=== PATIENT | female | born 1990 | race Caucasian/White ===

== ENCOUNTER 2020-02-17 14:35 | Outpatient (RCR) | payer BC, SELFPAY ==
[2020-02-10 10:00] VITALS: BP 120/70; PULSE 88
--- NOTE | ~2020-02-17 | US_ITS ---
EXAMINATION: US OB follow up w BPP EXAM DATE: 02/10/2020 09:50 INDICATION: Nonreactive stress test. 3rd trimester. TECHNIQUE: Pelvic obstetrical transabdominal sonogram was performed by a technologist. Biophysical p rofile. There are multiple grayscale and Doppler images available for interpretation. Comparison is m bailey to prior examination from 09/03/2019. FINDINGS: There is a single fetus identified in vertex presentation with a heart rate of 144 beats pe r minute. The placenta is located in the fundal position. There is no sonographic evidence of retrop lacental hemorrhage identified. The amniotic fluid index is 13.7 centimeters, which is normal. BIOMETRIC DATA: Biparietal diameter (BPD): 9.2cm ----------------> 37 weeks 2 days. Head circumference (HC): 34.8 cm ----------------> 40 weeks 2 days. Abdominal circumference (AC): 35.3 cm ----------> 39 weeks 2 days. Femur length (FL): 7.3 cm --------------------------> 37 weeks 1 day. These measurements are concordant. HC/AC ratio is 0.98 (The 5th -- 95th percentile range is 0.88-1.06. Estimated weight is 3558 g +/- 534 g. This is the 85th percentile when the currently reported clinical gestation age 37 weeks 4 days, clinical estimated date of delivery ([facility]) 02/27/2020 is us ed. estimated gestational age based on measurements from this exam is 38 weeks 4 days, with an estimated date of delivery ([facility]) 02/19. BIOPHYSICAL PROFILE (performed by the technologist) breathing (30 sec sustained breathing in 30 minutes): 2 out of 2 movement (3 gross body movements in 30 minutes): 2 out of 2 tone (one episode of lperbax-lpwwqhdip-kqtelic limb movement): 2 out of 2 Amniotic fluid pocket (2 cm): 2 out of 2 Total score: 8 out of 8 IMPRESSION: 1. Single fetus with heart rate of 144 bpm. 2. Normal biophysical profile score of 8 out of 8. 3. Normal JOÃO 13.7 cm. 4. Biometric data above. Reviewed, dictated and finalized at location B.
[2020-02-17 15:31] VITALS: BP 118/61; PULSE 46
== END 2020-02-21 07:28 | disposition home or self-care (01) ==
LOC: ANHOBOP 14:35
PROVIDERS: Visit Provider Obstetrics & Gynecology
DX: Z34.93 Encounter for supervision of normal pregnancy, unspecified, third trimester (principal); Z3A.37 37 weeks gestation of pregnancy; Z3A.38 38 weeks gestation of pregnancy
CPT/HCPCS: 59025; 76816; 76819

== ENCOUNTER 2020-02-19 05:07 | Inpatient (IN) | payer BC, SELFPAY ==
[2020-02-19] VITALS (103 sets, daily range): BP systolic 69–128; BP diastolic 31–81; PULSE 75–121; TEMP 36.5–37.6; O2SAT 82–100; BMI 33.0
--- NOTE | 2020-02-19 05:32 | LDADM ---
This patient, Jenna Wetzel, was admitted to Labor/Delivery/Recovery 108 on 02/19/20 at 05:07. Plans for labor, pain management and were discussed with patient. Patient/family oriented to hospital policies and general routines including ID bracelet, bed and alarms, visiting hours, pain management, procedures, bathroom and other care routines, personal items, smoking policy, room service/diet and guest tray routines, infant security routines, and visiting hours. Patient/Family are encouraged to report perceived risks to care and to ask questions if they do not understand what they are told or what they should do. See OBIX for further documentation.
[2020-02-19 05:58] LABS: Basophils Absolute Auto 0.1 K/mm3 (0.0-0.1); Basophils Percent Auto 0.5 % (0.2-1.2); Eosinophils Absolute Auto 0.1 K/mm3 (0-0.3); Eosinophils Percent Auto 1.3 % (0-4.4); Hematocrit 33.6 % (37.0-47.0); Hemoglobin 11.2 g/dL (12.0-15.0); Immature Granulocyte Absolute 0.37 K/mm3 (0.00-0.031); Immature Granulocyte Percent A 3.3 % (0-0.5); Lymphocytes Absolute Auto 3.67 K/mm3 (0.9-3.2); Lymphocytes Percent Auto 33.2 % (18.3-44.2); Mean Corpuscular HGB Conc 33.3 g/dl (32-36); Mean Corpuscular Hemoglobin 31.1 pg (26-34); Mean Corpuscular Volume 93.3 fl (80-100); Mean Platelet Volume 10.9 fl (7.4-10.4); Monocytes Absolute Auto 0.6 K/mm3 (0.1-0.6); Monocytes Percent Auto 5.6 % (2.6-8.5); Neutrophils Absolute Auto 6.2 K/mm3 (1.3-6.7); Neutrophils Percent Auto 56.1 % (45.5-73.1); Platelet Count Result 265 k/mm3 (150-375); Red Cell Distribution Width 14.1 % (11.5-14.5); White Blood Count 11.1 K/mm3 (4.5-10.0)
--- NOTE | 2020-02-19 06:50 | P.PNAN_ITS ---
Anes - Eval Pre Procedure Procedure: labor epidural Date/Time: 02/19/20 06:50 Surgeon: Duran Pre Op Diagnosis: leaking Patient Data Age: 29 Gender: F Height: 1.65 m Weight: 90 kg Last Vital Signs Temp 36.5 C 02/19/20 05:40 Pulse 81 02/19/20 06:00 BP 118/63 02/19/20 06:00 Allergies Allergy/AdvReac Type Severity Reaction Status Date / Time No Known Allergies Allergy Verified 02/19/20 06:20 Home Medications Medication Instructions Recorded Confirmed Type aspirin 81 mg tablet,delayed 81 mg PO DAILY 01/20/20 02/19/20 History release cholecalciferol (vitamin D3) 50 50 mcg PO DAILY 01/20/20 02/19/20 History mcg (2,000 unit) capsule ferrous sulfate 325 mg (65 mg 325 mg PO BID 01/20/20 02/19/20 History iron) tablet prenat.vits,melissa,[id number] 1 tablet PO DAILY 01/20/20 02/19/20 History Laboratory Tests 02/19/20 02/19/20 05:51 05:51 WBC 11.1 K/mm3 H K/mm3 (4.5-10.0) RBC 3.60 M/mm3 L M/mm3 (4.2-5.4) Hgb 11.2 g/dL L g/dL (12.0-15.0) Hct 33.6 % L % (37.0-47.0) MCV 93.3 fl fl (80-100) MCH 31.1 pg pg (26-34) MCHC 33.3 g/dl g/dl (32-36) RDW 14.1 % % (11.5-14.5) Plt Count 265 k/mm3 k/mm3 (150-375) MPV 10.9 fl H fl (7.4-10.4) Immature Gran % (Auto) 3.3 % H % (0-0.5) Neut % (Auto) 56.1 % % (45.5-73.1) Lymph % (Auto) 33.2 % % (18.3-44.2) [place] % (Auto) 5.6 % % (2.6-8.5) Eos % (Auto) 1.3 % % (0-4.4) Baso % (Auto) 0.5 % % (0.2-1.2) Lymph # (Auto) 3.67 K/mm3 H K/mm3 (0.9-3.2) [place] # (Auto) 0.6 K/mm3 K/mm3 (0.1-0.6) Eos # (Auto) 0.1 K/mm3 K/mm3 (0-0.3) Baso # (Auto) 0.1 K/mm3 K/mm3 (0.0-0.1) Abs Immat Gran (auto) 0.37 K/mm3 H K/mm3 (0.00-0.031) Absolute Neuts (auto) 6.2 K/mm3 K/mm3 (1.3-6.7) Absolute Nucleated RBC 0.0 K/mm3 K/mm3 (0.0-0.012) Nucleated RBC % 0.0 % % (0.0-0.2) RPR Pending Patient hx anesthesia problems: none Family hx anesthesia problems: none PMFSH Family History Family History (Updated 02/17/20 @ 14:58 by Paola Waters RN) Grandparent Breast cancer Social History Social History Smoking status: Never smoker Tobacco type: cigarettes Smoking end date: 08/11/09 Alcohol intake: former Substance use: never Gender identity (if verbalized by the patient): Female Spiritual care concerns: No Exam Day of Procedure 02/19/20 06:50
--- NOTE | 2020-02-19 09:45 | PM.IMHP ---
H&P: HPI History of Present Illness Chief complaint: leaking Narrative: Jenna Wetzel is a 29 year old female currently 38w6d who presented to L&D with complaints of leakage of fluid. This is an IVF . Patient is a gestational carrier. Patient reports onset of leakage of fluid at approx. 4:00 a.m. Clear fluid noted. Denies any vaginal bleeding or ctx. Reports good movement. Upon arrival to L&D, patient was noted to be grossly ruptured and decision was made to admit patient to L&D. Review of Systems Review of Systems: All systems reviewed & are unremarkable except as noted in HPI and below Constitutional: Constitutional: Reports as per HPI, Reports no additional constitutional complaints, Denies chills, Denies fever(s), Denies headache(s) and Denies night sweats Eyes: Eyes: Reports as per HPI and Reports no additional eye complaints ENT: Reports system reviewed and no additional complaints, except as documented, Reports as per HPI, Reports Normal hearing present and Denies headache(s) Cardiovascular: Cardiovascular: Reports as per HPI, Reports no additional cardiovascular complaints, Denies chest pain and Denies dyspnea Respiratory: Respiratory: Reports as per HPI, Reports no additional respiratory complaints, Denies cough and Denies dyspnea Gastrointestinal: Gastrointestinal: Reports as per HPI, Reports no additional gastrointestinal complaints, Denies abdominal pain, Denies change in bowel habits, Denies change in stool character, Denies nausea and Denies vomiting Genitourinary: Genitourinary: Reports no additional female genitourinary complaints, Reports as per HPI, Denies abnormal vaginal bleeding, Denies genital lesions, Denies hot flashes, Denies dyspareunia, Denies pelvic pain, Denies sexual dysfunction, Denies urinary incontinence, Denies vaginal discharge, Denies vaginal dryness and Denies vaginal odor Musculoskeletal: Musculoskeletal: Reports no additional musculoskeletal complaints and Reports as per HPI Integumentary/Breasts: Skin/Breast: Reports system reviewed and no additional complaints, except as docu, Reports as per HPI, Denies breast pain and Denies nipple discharge Neurologic: Reports system reviewed and no additional complaints, except as documented, Reports as per HPI, Reports Normal hearing present and Denies headache(s) Psychiatric: Psychiatric: Reports no additional psychiatric complaints, Reports as per HPI, Denies anxiety and Denies depression Endocrine: Endocrine: Reports no additional endocrine complaints and Reports as per HPI Hematologic/Lymphatic: Hematologic/Lymphatic: Reports no additional hematologic/lymphatic complaints and Reports as per HPI Allergic/Immunologic: Allergic/Immunologic: Reports no additional allergic/immunologic complaints and Reports as per HPI PMFSH Past Medical History Medical History In vitro fertilization Vaginal delivery Family History Family History Grandparent Breast cancer Social History Social History Smoking status: Never smoker Tobacco type: cigarettes Smoking end date: 08/11/09 Alcohol intake: former Substance use: never Gender identity (if verbalized by the patient): Female Spiritual care concerns: No Meds Home Medications and Allergies Home Medications Medication Instructions Recorded Confirmed Type aspirin 81 mg tablet,delayed 81 mg PO DAILY 01/20/20 02/19/20 History release cholecalciferol (vitamin D3) 50 50 mcg PO DAILY 01/20/20 02/19/20 History mcg (2,000 unit) capsule ferrous sulfate 325 mg (65 mg 325 mg PO BID 01/20/20 02/19/20 History iron) tablet prenat.vits,melissa,[id number] 1 tablet PO DAILY 01/20/20 02/19/20 History Allergies Allergy/AdvReac Type Severity Reaction Status Date / Time No Known Allergies Allergy Verified 02/19/20 0
[2020-02-19] MEDS: LACTATED RINGERS 1,000 ML 125 ML IV CONT ×4 (12:15→23:56)
[2020-02-19] MEDS: OXYTOCIN 30 UNITS/NS 500 ML 30 UNITS/500 ML BAG IV CONT ×2 (12:16→15:58)
[2020-02-19] MEDS: SODIUM CHLORIDE 0.9% IV 300 ML 600 ML I-UTERINE (21:57)
[2020-02-19] MEDS: AMPICILLIN 2 GM/NS 100 ML 2 GM/100 ML BAG IVPB (22:00)
[2020-02-20] VITALS (90 sets, daily range): BP systolic 92–152; BP diastolic 32–77; PULSE 73–154; RESP 12–18; TEMP 36.8–38.4; O2SAT 83–100
[2020-02-20] MEDS: AMPICILLIN 1 GM/NS 50 ML 1 GM/50 ML BAG IVPB (02:10)
[2020-02-20] MEDS: CALCIUM CARBONATE (TUMS) 500 MG (200 MG ELEMENTAL) PO (02:28)
[2020-02-20] MEDS: CLINDAMYCIN 900 MG/NS 50 ML 900 MG/50 ML PIGGYBACK 50 MG IVPB (02:53)
[2020-02-20] MEDS: LACTATED RINGERS 1,000 ML 125 ML IV CONT (04:54)
[2020-02-20] MEDS: miSOPROStol 200 MCG TABLET RECTAL (06:37)
[2020-02-20] MEDS: METHYLERGONOVINE MALEATE 0.2 MG/ML VIAL IM (06:39)
--- NOTE | 2020-02-20 06:54 | PM.OBPRVD ---
OB - Delivery Note Procedure Delivery date: 02/20/20 events: Premature Rupture of Membrane and Prolonged Rupture of Membrane Intrapartal events: Prolonged Labor > 20 hours and Febrile Delivery augmentation: pitocin Delivery monitor: external FHT, external uterine and internal uterine Route of delivery: Episiotomy description: None Laceration description: None Specimen: Yes (cord blood, gases, placenta) Estimated blood loss (mL): 300 Anesthesia type: Epidural Disposition: floor Complications: Chorioamnionitis [place] Baby Date of : 02/20/20 Weeks of gestation at delivery: 38 gender: Male Weight (pounds): 8 Weight (ounces): 2 presentation: vertex position: Left Occiput Anterior Placenta delivery description: Spontaneous cord vessel description: Nuchal Cord (x 1) score one minute: 9 score five minutes: 9 Narrative: Pt has temp of 101.2 F at 2 am on 02/20/2020. pt was already receiving ampicillin due to prolonged Rupture membrane and so Gentamycin was added.
--- NOTE | 2020-02-20 07:01 | PM.OBDSVD ---
DS: Admitting Diagnosis Admitting Diagnosis Admitting Diagnosis: Premature rupture of membranes, unspecified as to length of time between rupture and onset of labor, unspecified weeks of gestation OB - DS: Summary OB Procedures : NST and Ultrasound OB Procedures Intrapartum: Spontaneous Vag Delivery OB Procedures: : None Peripartum Data Infant Delivery Method: Natural Vaginal Laceration description: None Episiotomy description: None complications: none Status at Discharge Functional status at discharge: independent ambulation Time Spent with Patient Time attestation: Total time spent providing and/or coordinating discharge services: DS: Data Data Completed and Pending Labs on day of discharge: Labs from last 24 hours 02/19/20 05:51 Blood Type O Positive Antibody Screen Negative Discharge Plan Discharge Attending physician on discharge: Vance Espinal Consulting providers: Tanmay Baptiste Discharging Clinician: Vance Espinal Anticipated Discharge Date/Time: 02/21/20 11:07 Patient Disposition: Home, Self-Care Activity: may shower, as tolerated, pelvic rest and other - see discharge instructions Diet: regular Discharge Instructions: Pelvic rest for 4-6 weeks. Call office for temperature >100.4, saturating more than a pad an hour, leg pain or redness or swelling. Take a daily iron supplement, over the counter SloFe once a day for one month. May take over the counter Ibuprofen or Tylenol for pain. Education: Mom and Baby Guide and preeclampsia handout given to: Mother Follow-Up: Call your delivering provider's office for an appointment to be seen in: 6 Weeks BREAST CARE: 1. Wear a snug supportive bra. 2. For engorgement discomfort: A. May apply ice packs EPISIOTOMY/PERINEAL CARE: 1. Until bleeding stops, use your jessika bottle after urinating 2. Change your pad frequently throughout the day 3. You may take sitz baths several times a day (fill your bathtub with warm water and soak for 20 minutes.) Do NOT bathe in the water 4. No tub baths until seen by your physician - You may shower ACTIVITY: 1. Rest as much as possible. 2. Do not exercise or lift anything heavier than ten pounds (such as laundry or other children.) 3. Avoid stairs or driving as much as possible. 4. Do not put anything into the vagina. No douching, tampons, or sexual activity until seen by physician. NOTIFY PHYSICIAN IF YOU HAVE ANY QUESTIONS OR IF ANY OF THE FOLLOWING SYMPTOMS OCCUR: 1. If your perineum becomes red, swollen, or more painful than what you have experienced in the hospital. 2. If your vaginal bleeding becomes foul smelling. 3. If your vaginal bleeding becomes more heavy than a period or if your bleeding changes from pink to bright red. However, you may pass an occasional walnut-sized clot once or twice for the first week . 4. If you experience a sharp, shooting pain in you calves. 5. If you discover a hard, reddened area on your breast or if you experience flu-like symptoms. DIET: 1. Eat regular, well-balanced meals. 2. Drink plenty of fluids daily. Stand Alone Forms: General Discharge Information Follow-up/Referrals: Tisha Garzon MD [Physician] - 4 Weeks (Call for appointment.) Discharge Medications: Continued prenat.vits,melissa,[id number] Tablet 1 tablet PO DAILY RF: 0 ferrous sulfate [Feosol] 325 mg (65 mg iron) tablet 325 mg PO BID RF: 0 cholecalciferol (vitamin D3) 50 mcg (2,000 unit) capsule 50 mcg PO DAILY RF: 0 Discontinued aspirin 81 mg tablet,delayed release (DR/EC) 81 mg PO DAILY RF: 0 Date of admission: 02/19/20 05:07 Primary Care Provider: PHYSICIAN,TRANSACTIONAL ATTORNEY Admitting Provider: Tisha Garzon Discharge Date/Time: 02/21/20 12:34 Attending physician on admission: Tisha Garzon
[2020-02-20] MEDS: CARBOPROST TROMETHAMINE 250 MCG/ML AMPUL IM (07:11)
[2020-02-20] MEDS: OXYTOCIN 30 UNITS/NS 500 ML 30 UNITS/500 ML BAG 125 UNITS IV CONT (07:23)
[2020-02-20] MEDS: IBUPROFEN 600 MG TABLET PO ×3 (08:25→21:21)
[2020-02-20] MEDS: AMPICILLIN 2 GM/NS 100 ML 2 GM/100 ML BAG IVPB ×3 (08:30→20:05)
[2020-02-20] MEDS: WITCH HAZEL 40 PADS 1 PAD TOPICAL (09:45)
--- NOTE | 2020-02-20 13:06 | PC.NURSE ---
0930 pt admitted to room 282 per wheelchair from labor and delivery after spontaneous vaginal delivery of viable male at [address] Garzon. 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 Pt's VSS and assessment WNL. Pt wanting to sleep after a long labor and delivery.
[2020-02-20] MEDS: METHYLERGONOVINE MALEATE 0.2 MG TABLET PO ×2 (14:21→21:21)
[2020-02-20 14:26] LABS: Estimated CRCL calculation 114 ml/min; Estimated Glomerular Filt Rate > 60
[2020-02-20 15:01] LABS: Gentamicin Random 1.3 ug/mL (5.0-12.0)
[2020-02-20] MEDS: DOCUSATE SODIUM 100 MG CAPSULE PO (21:27)
[2020-02-21] MEDS: AMPICILLIN 2 GM/NS 100 ML 2 GM/100 ML BAG IVPB (02:01)
[2020-02-21] MEDS: IBUPROFEN 600 MG TABLET PO ×2 (05:04→11:13)
[2020-02-21] MEDS: METHYLERGONOVINE MALEATE 0.2 MG TABLET PO ×2 (05:05→11:14)
[2020-02-21 05:27] LABS: Hemoglobin 8.6 g/dL (12.0-15.0)
[2020-02-21 07:07] LABS: Rapid Plasma Reagin Non-Reactive (NonReactive)
[2020-02-21] MEDS: DOCUSATE SODIUM 100 MG CAPSULE PO (07:40)
[2020-02-21] MEDS: POLYSACCHARIDE IRON COMPLEX 150 MG CAPSULE PO (07:40)
--- NOTE | 2020-02-21 07:45 | PC.NURSE ---
Patient received instructions on viewing the discharge video Mother & Baby Care, The First Two Weeks . Patient was given the opportunity and encouraged to ask questions. Patient verbalized understanding of information shared and has been given the mother/baby guide for home reference.
[2020-02-21 08:00] VITALS: BP 102/51; PULSE 67; RESP 16; TEMP 36.9; O2SAT 100
[2020-02-21 11:00] VITALS: TEMP 36.3
--- NOTE | 2020-02-21 11:03 | PM.OBPNVD ---
OB - PN: Subj Subjective Date/time seen: 02/21/20 11:03 No lightheadedness or dizziness Patient comments: pain well controlled, tolerating diet and other (Decreasing lochia.) baby status: doing well OB - PN: Obj Data Labs CBC & Chem 7: 02/21/20 04:59 02/20/20 13:57 Labs: Laboratory Results - last 24 hr 02/19/20 02/20/20 02/20/20 05:51 13:57 13:57 Hgb Hct Creatinine 0.70 Estim Creat Clear Calc 114 Estimated GFR > 60 Random Gentamicin 1.3 L RPR Non-reactive 02/21/20 04:59 Hgb 8.6 L Hct 26.0 L Creatinine Estim Creat Clear Calc Estimated GFR Random Gentamicin RPR OB - PN A/P Plan day: 1 Plan: routine care Comments: Patient doing well. Asymptomatic anemia. Afebrile for over 24 hours. She desires to go home. Will discharge to home. Discharge instuctions discussed. Time Spent With Patient Time: Total time spent is greater than 50% in coordination of care (as documented) at patient's floor/unit and/or counseling patient: Review of Systems Review of Systems: All systems reviewed & are unremarkable except as noted in HPI and below Constitutional: Constitutional: Reports no additional constitutional complaints Cardiovascular: Cardiovascular: Denies dyspnea Respiratory: Respiratory: Denies dyspnea Gastrointestinal: Gastrointestinal: Reports no additional gastrointestinal complaints and Denies abdominal pain Genitourinary: Genitourinary: Reports no additional female genitourinary complaints Exam Const: General: no acute distress, alert and awake Resp: Effort & Inspection: normal respiratory effort GI: GI Palp: No Tenderness to palpation present (GI) Other: Fundus nontender, below umbilicus, firm, rectus diasthesis area mild tender Psych: Appearance: grossly normal Affect: normal affect Other: Abd: fundus firm below umbilicus, nontender Perineum: healing Ext: nontender
--- NOTE | 2020-02-21 11:09 | P.DS_ITS ---
DS: Admitting Diagnosis Admitting Diagnosis Admitting Diagnosis: Premature rupture of membranes, unspecified as to length of time between rupture and onset of labor, unspecified weeks of gestation DS: Discharge Diagnosis Discharge Diagnosis (1) PROM (premature rupture of membranes): Code(s): O42.90 - Premature rupture of membranes, unspecified as to length of time between rupture and onset of labor, unspecified weeks of gestation Status: Acute (2) Chorioamnionitis: Code(s): O41.1290 - Chorioamnionitis, unspecified trimester, not applicable or unspecified Status: Acute OB - DS: Summary Hospital Course Time spent discussing smoking cessation with patient: 3 to 10 minutes OB Procedures : None OB Procedures Intrapartum: Spontaneous Vag Delivery OB Procedures: : Antibiotics Peripartum Data Delivery Method: Natural Vaginal Procedures: Spontaneous vaginal delivery complications: none Status at Discharge Functional status at discharge: independent ambulation Time Spent with Patient Time attestation: Total time spent providing and/or coordinating discharge se rvices: Exam Const: General: comfortable Limitations: no limitations Resp: Effort & Inspection: normal respiratory effort GI: GI Palp: Yes Soft to palpation Psych: Appearance: grossly normal Attitude: cooperative DS: Data Data Completed and Pending Pending studies at discharge: Pending at discharge 02/20/20 06:31 Surgical [PTH] Routine Labs on day of discharge: Labs from last 24 hours 02/21/20 02/20/20 02/20/20 04:59 13:57 13:57 Hgb 8.6 L Hct 26.0 L Creatinine 0.70 Estim Creat Clear Calc 114 Estimated GFR > 60 Random Gentamicin 1.3 L RPR 02/19/20 05:51 Hgb Hct Creatinine Estim Creat Clear Calc Estimated GFR Random Gentamicin RPR Non-reactive Discharge Plan Discharge Attending physician on discharge: Vance Espinal Consulting providers: Tanmay Baptiste Discharging Clinician: Vance Espinal Anticipated Discharge Date/Time: 02/21/20 11:07 Patient Disposition: Home, Self-Care Activity: may shower, as tolerated, pelvic rest and other - see discharge instructions Diet: regular Discharge Instructions: Pelvic rest for 4-6 weeks. Call office for temperature >100.4, saturating more than a pad an hour, leg pain or redness or swelling. Take a daily iron supplement, over the counter SloFe once a day for one month. May take over the counter Ibuprofen or Tylenol for pain. Patient Instructions: Antibiotic Form Stand Alone Forms: General Discharge Information Follow-up/Referrals: Tisha Garzon MD [Physician] - 4 Weeks (Call for appointment.) Discharge Medications: No Action prenat.vits,melissa,[id number] Tablet 1 tablet PO DAILY RF: 0 ferrous sulfate [Feosol] 325 mg (65 mg iron) tablet 325 mg PO BID RF: 0 aspirin 81 mg tablet,delayed release (DR/EC) 81 mg PO DAILY RF: 0 cholecalciferol (vitamin D3) 50 mcg (2,000 unit) capsule 50 mcg PO DAILY RF: 0 Date of admission: 02/19/20 05:07 Primary Care Provider: PHYSICIAN,LINK TRAINER MAINTENANCE WORKER Admitting Provider: Tisha Grazon Attending physician on admission: Tisha Garzon
== END 2020-02-21 12:34 | disposition home or self-care (01) | DRG 805 ==
LOC: ANHLDR 06:09 → ANHOB2 02-21 11:09 → ANHLDR 02-23 10:17 → ANHOB2 02-23 10:17
PROVIDERS: Obstetrics & Gynecology; Admitting Provider Student in an Organized Health Care Education/Training Program; Visit Provider Obstetrics & Gynecology
DX: O42.02 Full-term premature rupture of membranes, onset of labor within 24 hours of rupture (principal); O41.1230 Chorioamnionitis, third trimester, not applicable or unspecified; Z37.0 Single live birth; Z3A.39 39 weeks gestation of pregnancy; O69.81X0 Labor and delivery complicated by cord around neck, without compression, not applicable or unspecified; O09.813 Supervision of pregnancy resulting from assisted reproductive technology, third trimester
CPT/HCPCS: 36415; 80170; 82565; 85014; 85018; 85025; 86592; 86850; 86900; 86901; 88307; A9270; J0131; J0290; J1580; J2210; J2590; J2795; J7030; J7120

== ENCOUNTER 2020-04-17 09:57 | Emergency (ER) | payer BC, MEDICAID, SELFPAY ==
[2020-04-17 10:04] VITALS: BP 114/61; PULSE 67; RESP 20; TEMP 37.1; O2SAT 100
--- NOTE | 2020-04-17 10:13 | ED.FEMALEGU ---
HPI - Female Genitourinary General Chief complaint: Urogenital-Female Stated complaint: uti Time Seen by Provider: 04/17/20 10:14 Source: patient and RN notes reviewed Mode of arrival: ambulatory Limitations: no limitations History of Present Illness HPI Narrative: 29-year-old female who presents to [facility] with complaints of 5 day history of lower back pain, suprapubic pressure, urinary frequency and feels like she can't empty her bladder. Patient states that her urine has foul odor, did take AZO 2 days ago for her symptoms. Patient gave to baby in February and she had her first menses on March post delivery. Patient denies any vaginal discharge or any itching, no known fevers chills or sweats, no nausea or vomiting. MD elicited complaint: back pain, difficulty urinating and other (suprapubic pressure) Pertinent past history: other Onset (ago): day(s) (5) Location of symptoms: suprapubic and low back Severity scale (1-10): 3 Quality of pain: aching Consistency: intermittent Vaginal discharge: none Vaginal bleeding: none Urinary symptoms: Urgency and Frequency Exacerbating factors: urination Relieving factors: none Associated symptoms: back pain and other (suprapubic pressure) Treatment prior to arrival: OTC urinary analgesics Sexual activity: Yes Patient : No Date of Last Menstrual Period: 03/21/20 Related Data Home Medications Medication Instructions Recorded Confirmed sertraline 25 mg PO DAILY 04/17/20 04/17/20 Allergies Allergy/AdvReac Type Severity Reaction Status Date / Time No Known Allergies Allergy Verified 04/17/20 10:28 Review of Systems Review of Systems: Narrative: CONSTITUTIONAL: Denies fever, chills, or sweats. EYES: Denies visual changes, redness, or discharge. ENT: Denies rhinorrhea, congestion, sore throat, or otalgia. CARDIOVASCULAR: Denies chest pain, palpitations, or edema. RESPIRATORY: Denies cough or dyspnea. GASTROINTESTINAL: positive for suprapubic abdominal pressure no nausea, vomiting, or diarrhea. GENITOURINARY: Positive dysuria, frequency, no hematuria. SKIN: Denies rash or itching. MUSCULOSKELETAL: positive for back pain, no joint pain, or myalgia. NEUROLOGIC: Denies headache, numbness, or weakness. PSYCHIATRIC:history of anxiety or depression. All systems reviewed & are unremarkable except as noted in HPI and below PMFSH Past Medical History Medical History (Updated 04/18/20 @ 15:07 by Shakila Lozano NP) Urinary tract infection Surgical History Surgical History (Updated 04/17/20 @ 10:34 by Shakila Lozano NP) Hx of appendectomy Social History Social History (Updated 04/17/20 @ 10:35 by Shakila Lozano NP) Smoking status: Never smoker Substance use: never Living arrangements: with family Gender identity (if verbalized by the patient): Female Comments At time of signature, agree with nursing past medical, surgical, social history. There is no relevant family history pertinent to the presenting complaint Exam Narrative: Exam Narrative: GENERAL: Well-appearing, well-nourished, and in no acute distress. HEAD: Normocephalic, atraumatic. EYES: PERRLA and EOMI. ENT: Nares clear, no rhinorrhea or epistaxis. Mucous membranes moist. NECK: Supple.no lymphadenopathy CHEST: Clear to auscultation. No respiratory distress.SAO2 100% on room air HEART: Regular rate and rhythm. No murmur heard. Normal peripheral pulses. ABDOMEN: Soft suprapubic pressure and cramping, nondistended, normal active bowel sounds. urinary frequency with odor EXTREMITIES: Normal range of motion. No edema. back pain SKIN: Warm, dry, no rash. NEURO: No focal deficits. Alert and oriented x3. Course Vital Signs Vital signs: Vital Signs Temperature 37.1 C 04/17/20 10:04 Pulse Rate 67 04/17/20 10:04 Respiratory Rate 20 04/17/20 10:04 Blood Pressure 114/61 04/17/20 10:04 Pulse Oximetry 100 04/17/20 10:04 Temperature 37.1 C 04/17/20 10:04
== END 2020-04-17 10:40 | disposition home or self-care (01) ==
PROVIDERS: Emergency Provider Registered Nurse
DX: N39.0 Urinary tract infection, site not specified (principal)
CPT/HCPCS: 81003; 87086; 99213; G0463

== ENCOUNTER 2020-05-26 14:19 | Outpatient (CLI) | payer MEDICAID, SELFPAY ==
--- NOTE | 2020-05-26 | ECG_ITS ---
Measurements Intervals [place] Rate: 79 P: 57 NM: 170 QRS: 32 QRSD: 161 T: 29 QT: 432 QTc: 496 Interpretive Statements SINUS RHYTHM RIGHT BUNDLE BRANCH BLOCK ABNORMAL ECG Electronically Signed On 05-26-2020 15:02:14 CDT by Sergio Zamora D.O.
== END 2020-05-26 14:20 | disposition home or self-care (01) ==
DX: Z79.899 Other long term (current) drug therapy (principal); R94.31 Abnormal electrocardiogram [ECG] [EKG]; I45.10 Unspecified right bundle-branch block
CPT/HCPCS: 93005

== ENCOUNTER 2020-08-17 17:32 | Emergency (ER) | payer OTHER, SELFPAY ==
[2020-08-17 17:40] VITALS: BP 120/69; PULSE 85; RESP 16; TEMP 36.7; O2SAT 99
--- NOTE | 2020-08-17 18:10 | ED.FEMALEGU ---
HPI - Female Genitourinary General Chief complaint: Urogenital-Female Stated complaint: Urogenital-Female Source: patient and RN notes reviewed Mode of arrival: ambulatory Limitations: no limitations History of Present Illness HPI Narrative: This is a 29-year-old white female who presents to urgent care today complaining of incontinent urine leakage, dysuria and urinary frequency. The patient denies SOB, CP, palpitation, extremity numbness, lightheadedness, dizziness, pelvic pain , denies STD constipation, diarrhea, chills, or fever. Patient will be treated for symptoms in history along a culture has been sent out Related Data Home Medications Medication Instructions Recorded Confirmed dextroamphetamine-amphetamine 15 mg PO DAILY 08/17/20 08/17/20 [Adderall] Allergies Allergy/AdvReac Type Severity Reaction Status Date / Time No Known Allergies Allergy Verified 08/17/20 17:43 Review of Systems Review of Systems: All systems reviewed & are unremarkable except as noted in HPI and below (10 point system review) [facility] Past Medical History Medical History Chorioamnionitis In vitro fertilization Vaginal delivery Family History Family History Grandparent Breast cancer Social History Social History Smoking status: Smoker, status unknown Tobacco type: cigarettes Smoking end date: 08/11/09 Alcohol intake: former Substance use: never Gender identity (if verbalized by the patient): Female Spiritual care concerns: No Exam Narrative: Exam Narrative: GENERAL: This is a well-nourished, well-developed patient, in no apparent distress. HEAD: normocephalic, atraumatic. EYES: PERRL. Sclera clear/white. Vision is grossly intact. EARS: External ears normal, auditory canals clear and without drainage, TMs normal without perforation. Hearing grossly intact. NOSE: External nose normal with no obvious nasal discharge, nares without redness, no rhinorrhea. THROAT: Mucous membranes moist, posterior pharynx clear. NECK: Neck supple, non-tender without lymphadenopathy, masses or thyromegaly. CARDIOVASCULAR: Regular rate and rhythm without murmurs, gallops, or rubs. RESPIRATORY: Clear to auscultation. Breath sounds equal bilaterally. No wheezes, rales, or rhonchi. GASTROINTESTINAL: Abdomen soft, non-tender, nondistended. Bowel sounds are active. No hepato-splenomegaly, or palpable masses. No guarding. SKIN: warm, intact with no suspicious lesions or rash, good texture and turgor. NEURO: awake, alert, and oriented to person, place and time. There were no obvious focal neurologic abnormalities. Steady gait EXTREMITIES: Normal range of motion. No edema. No calf tenderness. Negative Homans sign bilaterally. BACK: Nontender without deformity or crepitance. No flank tenderness. Course Course Emergency Course: Patient will be treated off his symptoms and history alone. Her UA did not indicate UTI culture has been sent out Vital Signs Vital signs: Vital Signs Temperature 98.0 F 08/17/20 17:40 Pulse Rate 85 08/17/20 17:40 Respiratory Rate 16 08/17/20 17:40 Blood Pressure 120/69 08/17/20 17:40 Pulse Oximetry 99 08/17/20 17:40 Temperature 98.0 F 08/17/20 17:40 Pulse Rate 85 08/17/20 17:40 Respiratory Rate 16 08/17/20 17:40 Blood Pressure 120/69 08/17/20 17:40 Pulse Oximetry 99 08/17/20 17:40 MDM - Female Genitourinary Differential Diagnosis Differential diagnosis: Likely urinary tract infection, bacterial vaginosis and vaginitis Lab Data Attestation: I reviewed the patient's lab results. Labs: Urine Glucose Negative Reference Range: Negative Urine Bilirubin Negative Reference Range:
== END 2020-08-17 18:07 | disposition home or self-care (01) ==
PROVIDERS: Emergency Provider Nurse Practitioner
DX: N39.0 Urinary tract infection, site not specified (principal)
CPT/HCPCS: 81003; 87086; 99213; G0463

== ENCOUNTER 2020-12-08 13:52 | Emergency (ER) | payer OTHER, SELFPAY ==
[2020-12-08 13:58] VITALS: BP 122/86; PULSE 78; RESP 16; TEMP 36.7; O2SAT 100
--- NOTE | 2020-12-08 14:08 | ED.URI ---
HPI - URI/Sore Throat General Chief Complaint: Urogenital-Female Stated Complaint: UTI Time Seen by Provider: 12/08/20 14:08 Source: patient and RN notes reviewed History of Present Illness HPI Narrative: Patient is a 29-year-old female who presents presents the urgent care with complaints of possible UTI. Patient states that she has had frequent UTIs and has been in the hospital due to sepsis at one point. Patient states she has not followed up with urologist or with her PCP regarding the current issue. Patient states she has been taking Azo [id number] without much relief. Reports of symptoms starting 3 days ago with urinary frequency, urgency, inability to empty the bladder, and suprapubic pressure. 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 Denies any fever, chills, nausea, vomiting. No other acute complaints. No acute distress noted. Patient aware of the plan of care. Some parts of this dictation were generated by voice recognition software and may contain typographical and/or grammatical inaccuracies. Related Data Home Medications Medication Instructions Recorded Confirmed bupropion HCl 100 mg PO BID 12/08/20 12/08/20 dextroamphetamine-amphetamine 10 mg PO QPM 12/08/20 12/08/20 dextroamphetamine-amphetamine 20 mg PO QAM 12/08/20 12/08/20 hydroxyzine HCl 25 mg PO TID 12/08/20 12/08/20 Allergies Allergy/AdvReac Type Severity Reaction Status Date / Time No Known Allergies Allergy Verified 10/27/20 14:25 Review of Systems Review of Systems: Narrative: CONSTITUTIONAL: Denies fever, chills, or sweats. EYES: Denies visual changes, redness, or discharge. ENT: Denies rhinorrhea, congestion, sore throat, or otalgia. CARDIOVASCULAR: Denies chest pain, palpitations, or edema. RESPIRATORY: Denies cough or dyspnea. GASTROINTESTINAL: Denies abdominal pain, nausea, vomiting, or diarrhea. GENITOURINARY: Reports of urinary frequency, urgency, suprapubic pressure and inability to empty the bladder SKIN: Denies rash or itching. MUSCULOSKELETAL: Denies back pain, joint pain, or myalgia. NEUROLOGIC: Denies headache, numbness, or weakness. All other systems reviewed are negative, except as documented in HPI. [facility] Past Medical History Medical History (Updated 12/08/20 @ 14:23 by ROMAN Fountain) Chorioamnionitis In vitro fertilization Urinary tract infection Vaginal delivery Surgical History Surgical History (System 10/27/20 @ 14:25 by Marilee Taylor) Hx of appendectomy Family History Family History (System 10/27/20 @ 14:25 by Marilee Taylor) Grandparent Breast cancer Social History Social History (System 10/27/20 @ 14:25 by Marilee Taylor) Smoking status: Smoker, status unknown Tobacco type: cigarettes Smoking end date: 08/11/09 Alcohol intake: former Substance use: never Gender identity (if verbalized by the patient): Female Spiritual care concerns: No Comments At the time of my signature, I reviewed and agree with the nursing past medical, surgical, social, and family history. There is no relevant family history pertinent to the patient complaint. Exam Narrative: Exam Narrative: GENERAL: This is a well-nourished, well-developed patient, in no apparent distress. HEAD: normocephalic, atraumatic. EYES: PERRL. Sclera clear/white. Vision is grossly intact. EARS: External ears normal NOSE: External nose normal with no obvious nasal discharge, nares without redness, no rhinorrhea. THROAT: Mucous membranes moist NECK: Neck supple GASTROINTESTINAL: Abdomen soft, mild suprapubic tenderness, nondistended. SKIN: warm, intact with no suspicious lesions or rash, good texture and turgor. NEURO: awake, alert, and oriented to person, place and time. There were no obvious focal neurologic abnormalities. EXTREMITIES: No clubbing, cyanosis, or edema. BACK: Negative bilateral CVA tenderness Course Vital
== END 2020-12-08 14:25 | disposition home or self-care (01) ==
PROVIDERS: Emergency Provider Nurse Practitioner Family
DX: R35.0 Frequency of micturition (principal); F17.210 Nicotine dependence, cigarettes, uncomplicated
CPT/HCPCS: 81003; 87086; 99213; G0463

== ENCOUNTER 2021-08-24 13:48 | Outpatient (CLI) | payer OTHER, SELFPAY ==
--- NOTE | ~2021-08-24 | US_ITS ---
EXAMINATION: US OB <= 14 weeks fetus DATE: 08/24/2021 14:31 INDICATION: First trimester dating and viability assessment. TECHNIQUE: Real-time pelvic transabdominal ultrasound was performed. COMPARISON: None. FINDINGS: The uterus measures 8.7 x 8.1 x 7.1 cm. There is an intrauterine gestational sac. A yolk s ac is identified. heart motion is identified measuring 165 beats per minute (bpm) by M-mode Dop pler. The crown rump length measures 3.2 cm , which correlates with an estimated gestational ag e of 10 weeks and 1 day(s) (+/-) 6 day(s). The ovaries are not visualized however no adnexal abnormality is seen. There is no free fluid in the pelvis. IMPRESSION: 1. Live intrauterine with an estimated gestational age of 10 weeks and 1 day(s) (+/-) 6 day (s) and an estimated delivery date of 03/21/2022. Reviewed, dictated and finalized at location F. [facility] ATTORNEY IMPRESSION: 1. Live intrauterine with an estimated gestational age of 10 weeks an d 1 day(s) (+/-) 6 day(s) and an estimated delivery date of 03/21/2022.
== END 2021-08-24 13:49 | disposition home or self-care (01) ==
LOC: ANHIMG 13:49
PROVIDERS: Visit Provider Student in an Organized Health Care Education/Training Program
DX: Z36.9 Encounter for antenatal screening, unspecified (principal); Z3A.10 10 weeks gestation of pregnancy
CPT/HCPCS: 76801

== ENCOUNTER 2021-09-12 10:03 | Emergency (ER) | payer OTHER, SELFPAY ==
[2021-09-12 10:10] VITALS: BP 128/67; PULSE 98; RESP 18; TEMP 37.2; O2SAT 100
--- NOTE | 2021-09-12 10:10 | ED.FEMALEGU ---
HPI - Female Genitourinary General Chief complaint: Urogenital-Female Stated complaint: poss uti Time Seen by Provider: 09/12/21 10:10 Source: patient and RN notes reviewed History of Present Illness HPI Narrative: Patient is a 30-year-old female presents the urgent care with complaints of a possible UTI. Patient states that she has had increase frequency and urgency since yesterday. Patient is 12 weeks . States that she has a history of UTIs and did see a urologist which told her she has interstitial cystitis. Patient denies of any blood in the urine, nausea, vomiting, fever or abdominal pain. Patient states that she will follow up with her OB regarding some intermittent left side pain. No other acute complaints. No acute distress noted. Patient aware of the plan of care. Some parts of this dictation were generated by voice recognition software and may contain typographical and/or grammatical inaccuracies. Related Data Home Medications Medication Instructions Recorded Confirmed Daily 09/12/21 Allergies Allergy/AdvReac Type Severity Reaction Status Date / Time No Known Allergies Allergy Verified 08/17/21 14:22 Review of Systems Review of Systems: CONSTITUTIONAL: Denies fever, chills, or sweats. EYES: Denies visual changes, redness, or discharge. ENT: Denies rhinorrhea, congestion, sore throat, or otalgia. CARDIOVASCULAR: Denies chest pain, palpitations, or edema. RESPIRATORY: Denies cough or dyspnea. GASTROINTESTINAL: Denies abdominal pain, nausea, vomiting, or diarrhea. GENITOURINARY: Reports of urinary frequency SKIN: Denies rash or itching. MUSCULOSKELETAL: Denies back pain, joint pain, or myalgia. NEUROLOGIC: Denies headache, numbness, or weakness. All other systems reviewed are negative, except as documented in HPI. [facility] Past Medical History Medical History (Updated 09/12/21 @ 10:29 by ROMAN Fountain) Chorioamnionitis In vitro fertilization Surrogate Urinary tract infection Vaginal delivery Surgical History Surgical History Hx of appendectomy Family History Family History Grandparent Breast cancer Social History Social History Smoking status: Never smoker Alcohol intake: former Substance use: never Gender identity (if verbalized by the patient): Female Spiritual care concerns: No Comments At the time of my signature, I reviewed and agree with the nursing past medical, surgical, social, and family history. There is no relevant family history pertinent to the patient complaint. Exam Narrative: GENERAL: This is a well-nourished, well-developed patient, in no apparent distress. HEAD: normocephalic, atraumatic. EYES: PERRL. Sclera clear/white. Vision is grossly intact. EARS: External ears normal NOSE: External nose normal with no obvious nasal discharge, nares without redness, no rhinorrhea. THROAT: Mucous membranes moist NECK: Neck supple CARDIOVASCULAR: Regular rate and rhythm without murmurs, gallops, or rubs. RESPIRATORY: Clear to auscultation. Breath sounds equal bilaterally. No wheezes, rales, or rhonchi. GASTROINTESTINAL: Abdomen soft, non-tender, nondistended. Bowel sounds are active. SKIN: warm, intact with no suspicious lesions or rash, good texture and turgor. NEURO: awake, alert, and oriented to person, place and time. There were no obvious focal neurologic abnormalities. EXTREMITIES: No clubbing, cyanosis, or edema. BACK: Negative CVA tenderness Course Course Level of Care: Express Care Visit Vital Signs Vital signs: Vital Signs Temperature 99 F 09/12/21 10:10 Pulse Rate 98 09/12/21 10:10 Respiratory Rate 18 09/12/21 10:10 Blood Pressure 128/67 09/12/21 10:10 Pulse Oximetry 100 09/12/21 10:10 Temperature 99 F 09/12/21 10:10 Pu
== END 2021-09-12 10:32 | disposition home or self-care (01) ==
PROVIDERS: Emergency Provider Nurse Practitioner Family
DX: O90.89 Other complications of the puerperium, not elsewhere classified (principal); R35.0 Frequency of micturition
CPT/HCPCS: 81003; 87086; 99213; G0463

== ENCOUNTER 2021-09-14 14:43 | Outpatient (CLI) | payer OTHER, SELFPAY ==
[2021-09-14 18:08] LABS: Basophils Absolute Auto 0.1 K/mm3 (0.0-0.1); Basophils Percent Auto 0.5 % (0.2-1.2); Eosinophils Absolute Auto 0.1 K/mm3 (0-0.3); Eosinophils Percent Auto 0.8 % (0-4.4); Hematocrit 35.7 % (37.0-47.0); Hemoglobin 12.1 g/dL (12.0-15.0); Immature Granulocyte Absolute 0.08 K/mm3 (0.00-0.031); Immature Granulocyte Percent A 0.7 % (0-0.5); Lymphocytes Absolute Auto 2.99 K/mm3 (0.9-3.2); Lymphocytes Percent Auto 27.4 % (18.3-44.2); Mean Corpuscular HGB Conc 33.9 g/dl (32-36); Mean Corpuscular Hemoglobin 30.9 pg (26-34); Mean Corpuscular Volume 91.3 fl (80-100); Mean Platelet Volume 10.2 fl (7.4-10.4); Monocytes Absolute Auto 0.5 K/mm3 (0.1-0.6); Monocytes Percent Auto 4.2 % (2.6-8.5); Neutrophils Absolute Auto 7.2 K/mm3 (1.3-6.7); Neutrophils Percent Auto 66.4 % (45.5-73.1); Platelet Count Result 243 k/mm3 (150-375); Red Blood Count 3.91 M/mm3 (4.2-5.4); Red Cell Distribution Width 12.7 % (11.5-14.5); White Blood Count 10.9 K/mm3 (4.5-10.0)
[2021-09-14 18:19] LABS: Add Urine Microscopic? YES; Appearance Urine Clear (Clear); Bacteria Urine Trace /hpf; Bilirubin Urine Negative (Negative); Blood Urine Negative (Negative); Color Urine Yellow (Yellow); Glucose Urine UA Negative (Negative); Ketones Urine Trace mg/dL (Negative); Leukocyte Esterase Ur Negative LEU/UL (NEGATIVE); Mucus Urine Few /lpf; Nitrate Urine Negative (Negative); Protein Urine Negative (Negative); Specific Grav Ur 1.023 (1.001-1.035); Squamous Epithelial Cell Urine Rare /hpf (Few); Urobilinogen Urine Negative mg/dL (<2.0); WBC Urine 0-3 /hpf (0-3)
[2021-09-14 18:39] LABS: Vitamin D 25 Hydroxy 32.7 ng/mL
[2021-09-14 19:03] LABS: HIV 1/2 Ab P24 Ag Result Negative (Negative)
[2021-09-14 19:03] LABS: Hepatitis B Surface Antigen Negative (Negative); Rubella IgG Antibody 26.8 IU/ML
[2021-09-14 19:10] LABS: Hepatitis C Virus Antibody Negative (Negative)
[2021-09-17 07:14] LABS: Rapid Plasma Reagin Non-Reactive (NonReactive)
== END 2021-09-14 14:44 | disposition home or self-care (01) ==
LOC: ANHBWCLAB 14:45
PROVIDERS: Visit Provider Student in an Organized Health Care Education/Training Program
DX: Z34.91 Encounter for supervision of normal pregnancy, unspecified, first trimester (principal); Z3A.12 12 weeks gestation of pregnancy
CPT/HCPCS: 36415; 81001; 82306; 84443; 85025; 86592; 86703; 86762; 86787; 86803; 86850; 86900; 86901; 87086; 87340; G0432

== ENCOUNTER 2021-09-24 08:21 | Emergency (ER) | payer OTHER, SELFPAY ==
[2021-09-24 08:24] VITALS: BP 124/74; PULSE 100; RESP 14; TEMP 36; O2SAT 100
--- NOTE | 2021-09-24 08:33 | ED.PREGNANCY ---
HPI - General Chief complaint: Vaginal Bleeding Stated complaint: vaginal bleeding 13 weeks Time Seen by Provider: 09/24/21 08:33 Source: patient Mode of arrival: ambulatory Limitations: no limitations History of Present Illness HPI Narrative: The patient is a 30-year-old G5, P4 currently 13 weeks , presenting to the emergency department for evaluation of vaginal bleeding. Patient reports scant vaginal bleeding, consistent with heavy spotting that started this morning. Patient denies any recent heavy bending, lifting, exertional activity. No recent vaginal intercourse. Patient states this has otherwise been uncomplicated. She does have a history of subchorionic hemorrhage in previous . No history of placenta previa. Patient follows with Dr. Kelly Sneed. Her blood type is O+. She denies any abdominal cramping, back pain. No dysuria or hematuria. No vaginal discharge otherwise. Patient denies any contraction-like pain, loss of fluids. No heavy vaginal bleeding. Related Data Home Medications Medication Instructions Recorded Confirmed Daily 09/12/21 Allergies Allergy/AdvReac Type Severity Reaction Status Date / Time No Known Allergies Allergy Verified 09/24/21 08:31 Review of Systems Review of Systems: CONSTITUTIONAL: Denies fever, chills, or sweats. EYES: Denies visual changes, redness, or discharge. ENT: Denies rhinorrhea, congestion, sore throat, or otalgia. CARDIOVASCULAR: Denies chest pain, palpitations, or edema. RESPIRATORY: Denies cough or dyspnea. GASTROINTESTINAL: Denies abdominal pain, nausea, vomiting, or diarrhea. GENITOURINARY: Denies dysuria or hematuria. Reports vaginal bleeding. SKIN: Denies rash or itching. MUSCULOSKELETAL: Denies back pain, joint pain, or myalgia. NEUROLOGIC: Denies headache, numbness, or weakness. [facility] Past Medical History Medical History Chorioamnionitis In vitro fertilization Surrogate Urinary tract infection Vaginal delivery Surgical History Surgical History Hx of appendectomy Family History Family History Grandparent Breast cancer Social History Social History Smoking status: Never smoker Alcohol intake: former Substance use: never Gender identity (if verbalized by the patient): Female Spiritual care concerns: No Exam Narrative: GENERAL: Awake, alert, conversant HEAD: Normocephalic, atraumatic. EYES: PERRLA and EOMI. ENT: Nares clear, no rhinorrhea or epistaxis. Mucous membranes moist. NECK: Supple. CHEST: No respiratory distress, breathing even and non labored HEART: Regular rate, sinus rhythm ABDOMEN:Non distended, non tender : Labia majora and minora normal without lesions. Vagina with scant blood, no blood clot. No cervical motion tenderness. No adnexal tenderness or fullness bilaterally. No other discharge present. EXTREMITIES: Normal range of motion. No edema. SKIN: Warm, dry, no rash. NEURO:No focal deficits. Alert and oriented x3 Course Vital Signs Vital signs: Vital Signs Temperature 36.0 C L 09/24/21 08:24 Pulse Rate 100 09/24/21 08:24 Respiratory Rate 14 09/24/21 08:24 Blood Pressure 124/74 09/24/21 08:24 Pulse Oximetry 100 09/24/21 08:24 Temperature 36.0 C L 09/24/21 08:24 Pulse Rate 100 09/24/21 08:24 Respiratory Rate 14 09/24/21 08:24 Blood Pressure 124/74 09/24/21 08:24 Pulse Oximetry 100 09/24/21 08:24 MDM - OB/Uterine Contractions MDM Narrative Medical decision making narrative: Patient presenting for evaluation of vaginal bleeding in the setting of early . At the time of assessment, ABCs are intact and vital signs are stable. Bedside ultrasound was obtained, patient had heart
[2021-09-24 08:50] LABS: Basophils Percent Auto 0.4 % (0.2-1.2); Eosinophils Absolute Auto 0.1 K/mm3 (0-0.3); Eosinophils Percent Auto 1.5 % (0-4.4); Hematocrit 35.8 % (37.0-47.0); Hemoglobin 12.3 g/dL (12.0-15.0); Immature Granulocyte Absolute 0.09 K/mm3 (0.00-0.031); Lymphocytes Absolute Auto 2.65 K/mm3 (0.9-3.2); Lymphocytes Percent Auto 29.6 % (18.3-44.2); Mean Corpuscular HGB Conc 34.4 g/dl (32-36); Mean Corpuscular Hemoglobin 31.1 pg (26-34); Mean Corpuscular Volume 90.4 fl (80-100); Mean Platelet Volume 9.7 fl (7.4-10.4); Monocytes Absolute Auto 0.4 K/mm3 (0.1-0.6); Neutrophils Absolute Auto 5.7 K/mm3 (1.3-6.7); Neutrophils Percent Auto 63.5 % (45.5-73.1); Platelet Count Result 249 k/mm3 (150-375); Red Blood Count 3.96 M/mm3 (4.2-5.4); Red Cell Distribution Width 12.9 % (11.5-14.5)
== END 2021-09-24 10:31 | disposition home or self-care (01) ==
PROVIDERS: Emergency Provider Emergency Medicine
DX: O20.9 Hemorrhage in early pregnancy, unspecified (principal); Z87.440 Personal history of urinary (tract) infections; Z3A.13 13 weeks gestation of pregnancy
CPT/HCPCS: 36415; 84702; 85025; 85461; 99283

== ENCOUNTER 2021-12-14 08:52 | Outpatient (CLI) | payer OTHER, SELFPAY ==
[2021-12-14 18:28] LABS: Basophils Percent Auto 0.2 % (0.2-1.2); Eosinophils Absolute Auto 0.1 K/mm3 (0-0.3); Eosinophils Percent Auto 0.6 % (0-4.4); Hemoglobin 10.3 g/dL (12.0-15.0); Immature Granulocyte Absolute 0.12 K/mm3 (0.00-0.031); Immature Granulocyte Percent A 1.4 % (0-0.5); Lymphocytes Absolute Auto 2.16 K/mm3 (0.9-3.2); Mean Corpuscular HGB Conc 31.2 g/dl (32-36); Mean Corpuscular Hemoglobin 30.1 pg (26-34); Mean Corpuscular Volume 96.5 fl (80-100); Mean Platelet Volume 10.2 fl (7.4-10.4); Monocytes Absolute Auto 0.4 K/mm3 (0.1-0.6); Neutrophils Absolute Auto 5.9 K/mm3 (1.3-6.7); Neutrophils Percent Auto 67.8 % (45.5-73.1); Platelet Count Result 271 k/mm3 (150-375); Red Blood Count 3.42 M/mm3 (4.2-5.4); Red Cell Distribution Width 12.6 % (11.5-14.5); White Blood Count 8.6 K/mm3 (4.5-10.0)
[2021-12-14 18:33] LABS: Glucose 1 Hour PP 50gm Dose 118 mg/dL
== END 2021-12-14 08:53 | disposition home or self-care (01) ==
LOC: ANHBWCLAB 08:55
PROVIDERS: Visit Provider Student in an Organized Health Care Education/Training Program
DX: Z34.82 Encounter for supervision of other normal pregnancy, second trimester (principal); Z3A.00 Weeks of gestation of pregnancy not specified
CPT/HCPCS: 36415; 82947; 85025

== ENCOUNTER 2022-01-15 15:46 | Outpatient (CLI) | payer OTHER, SELFPAY ==
[2022-01-15 16:00] VITALS: BP 124/88; PULSE 97
[2022-01-15 16:15] VITALS: BP 118/64; PULSE 86
[2022-01-15 16:22] VITALS: BP 118/64; PULSE 84
--- NOTE | 2022-01-15 16:28 | PC.NURSE ---
[id number]- Spoke with Dr. Sneed, rom plus and MARELY ramsay. Orders to discharge to home.
== END 2022-01-15 16:28 | disposition home or self-care (01) ==
LOC: ANHOBOP 15:50 → ANHOBPP 01-21 08:17
PROVIDERS: Referring Provider Student in an Organized Health Care Education/Training Program; Visit Provider Student in an Organized Health Care Education/Training Program
DX: O42.90 Premature rupture of membranes, unspecified as to length of time between rupture and onset of labor, unspecified weeks of gestation (principal); Z3A.00 Weeks of gestation of pregnancy not specified
CPT/HCPCS: 59025; 84112; 99199

== ENCOUNTER 2022-02-01 15:38 | Outpatient (CLI) | payer OTHER, SELFPAY ==
[2022-02-01 17:45] LABS: Basophils Percent Auto 0.2 % (0.2-1.2); Eosinophils Absolute Auto 0.1 K/mm3 (0-0.3); Eosinophils Percent Auto 0.8 % (0-4.4); Hematocrit 29.4 % (37.0-47.0); Hemoglobin 9.2 g/dL (12.0-15.0); Immature Granulocyte Absolute 0.31 K/mm3 (0.00-0.031); Immature Granulocyte Percent A 2.9 % (0-0.5); Lymphocytes Absolute Auto 2.53 K/mm3 (0.9-3.2); Mean Corpuscular HGB Conc 31.3 g/dl (32-36); Mean Corpuscular Hemoglobin 27.5 pg (26-34); Mean Corpuscular Volume 87.8 fl (80-100); Mean Platelet Volume 10.4 fl (7.4-10.4); Monocytes Absolute Auto 0.7 K/mm3 (0.1-0.6); Monocytes Percent Auto 6.9 % (2.6-8.5); Neutrophils Absolute Auto 6.9 K/mm3 (1.3-6.7); Neutrophils Percent Auto 65.2 % (45.5-73.1); Platelet Count Result 281 k/mm3 (150-375); Red Blood Count 3.35 M/mm3 (4.2-5.4); Red Cell Distribution Width 13.5 % (11.5-14.5); White Blood Count 10.5 K/mm3 (4.5-10.0)
[2022-02-01 18:32] LABS: HIV 1/2 Ab P24 Ag Result Negative (Negative)
[2022-02-04 16:29] LABS: Rapid Plasma Reagin Non-Reactive (NonReactive)
== END 2022-02-01 15:39 | disposition home or self-care (01) ==
PROVIDERS: Visit Provider Student in an Organized Health Care Education/Training Program
DX: Z34.83 Encounter for supervision of other normal pregnancy, third trimester (principal); Z3A.00 Weeks of gestation of pregnancy not specified
CPT/HCPCS: 36415; 85025; 86592; 86703; G0432

== ENCOUNTER 2022-03-15 13:13 | Outpatient (RCR) | payer OTHER, SELFPAY ==
[2022-03-01 17:00] VITALS: BP 118/62; PULSE 85
[2022-03-08 14:26] VITALS: BP 105/62; PULSE 90
--- NOTE | ~2022-03-15 | US_ITS ---
EXAMINATION: US OB BPP wo non-stress DATE: 03/15/2022 14:51 CDT INDICATION: Large for gestational age infant TECHNIQUE: Real-time transabdominal obstetric ultrasound. FINDINGS: Ultrasound dated 03/08/2022 There is a single living fetus in vertex presentation. The placenta is fundal without placenta previ a. cardiac activity and movement is noted with a heart rate of 135 beats per minute. Biophysical profile: breathin of 2 movement: 2 of 2 tone: 2 of 2 Amniotic flud pocket: 2 of 2 Total score: 8 of 8 IMPRESSION: 1. Single living intrauterine in vertex presentation. 2: Total biophysical profile score of 8/8. Reviewed, dictated and finalized at location A.
--- NOTE | ~2022-03-15 | US_ITS ---
US OB BPP wo non-stress DATE: 03/01/2022 17:02 INDICATION: Large for gestational age TECHNIQUE: Real-time imaging and Doppler analysis COMPARISON: 08/24/2021 obstetrical ultrasound FINDINGS: Live tolbert intrauterine gestation, fetus in longitudinal lie, vertex presentation with heart rate of 136 bpm. Posterofundal placenta. Subjectively normal amount of amniotic fluid. A 2.5 x 5 cm pocket is identifi ed. BIOPHYSICAL PROFILE reported by health technician hearing: breathin out of 2 movement: 2 out of 2 tone: 2 out of 2 Amniotic fluid pocket: 2 out of 2 Total score: 8 out of 8 IMPRESSION: Normal biophysical profile score of 8 out of 8 Reviewed, dictated and finalized at Location [facility]. Reviewed, dictated and finalized at location B.
--- NOTE | ~2022-03-15 | US_ITS ---
EXAMINATION: US OB BPP wo non-stress DATE: 03/08/2022 14:21 CDT INDICATION: Large for gestational age. TECHNIQUE: Real-time transabdominal obstetric ultrasound. FINDINGS: Ultrasound dated 03/01/2022 There is a single living fetus in vertex presentation. The placenta is posterior/fundal without plac enta previa. cardiac activity and movement is noted with a heart rate of 144 beats per minute. Biophysical profile: breathin of 2 movement: 2 of 2 tone: 2 of 2 Amniotic flud pocket: 2 of 2 Total score: 8 of 8 IMPRESSION: 1. Single living intrauterine in vertex presentation. 2: Total biophysical profile score of 8/8. Reviewed, dictated and finalized at location A.
[2022-03-15 14:42] VITALS: BP 121/67; PULSE 78
== END 2022-03-29 15:09 | disposition home or self-care (01) ==
LOC: ANHOBOP 13:13
PROVIDERS: Visit Provider Student in an Organized Health Care Education/Training Program
DX: O36.63X0 Maternal care for excessive fetal growth, third trimester, not applicable or unspecified (principal); Z3A.36 36 weeks gestation of pregnancy; Z3A.38 38 weeks gestation of pregnancy
CPT/HCPCS: 59025; 76819

== ENCOUNTER 2022-03-20 06:56 | Inpatient (IN) | payer OTHER, SELFPAY ==
[2022-03-20] VITALS (48 sets, daily range): BP systolic 96–135; BP diastolic 38–103; PULSE 67–110; RESP 18; TEMP 36.4–37; O2SAT 99–100; BMI 34.8
--- NOTE | 2022-03-20 07:13 | LDADM ---
This patient, Jenna Wetzel, was admitted to Labor/Delivery/Recovery 107 on 03/20/22 at 06:56. Plans for labor, pain management and were discussed with patient. Patient/family oriented to hospital policies and general routines including ID bracelet, bed and alarms, visiting hours, pain management, procedures, bathroom and other care routines, personal items, smoking policy, room service/diet and guest tray routines, infant security routines, and visiting hours. Patient/Family are encouraged to report perceived risks to care and to ask questions if they do not understand what they are told or what they should do. See OBIX for further documentation.
[2022-03-20] MEDS: OXYTOCIN 30 UNITS/NS 500 ML 30 UNITS/500 ML BAG IV CONT (07:44)
[2022-03-20] MEDS: LACTATED RINGERS 1,000 ML 125 ML IV CONT (07:46)
[2022-03-20 07:49] LABS: Basophils Percent Auto 0.4 % (0.2-1.2); Eosinophils Absolute Auto 0.1 K/mm3 (0-0.3); Hematocrit 32.3 % (37.0-47.0); Hemoglobin 10.4 g/dL (12.0-15.0); Immature Granulocyte Absolute 0.44 K/mm3 (0.00-0.031); Immature Granulocyte Percent A 4.1 % (0-0.5); Lymphocytes Absolute Auto 2.81 K/mm3 (0.9-3.2); Lymphocytes Percent Auto 26.2 % (18.3-44.2); Mean Corpuscular HGB Conc 32.2 g/dl (32-36); Mean Corpuscular Hemoglobin 27.2 pg (26-34); Mean Corpuscular Volume 84.6 fl (80-100); Mean Platelet Volume 10.5 fl (7.4-10.4); Monocytes Absolute Auto 0.7 K/mm3 (0.1-0.6); Monocytes Percent Auto 6.2 % (2.6-8.5); Neutrophils Absolute Auto 6.7 K/mm3 (1.3-6.7); Neutrophils Percent Auto 62.1 % (45.5-73.1); Platelet Count Result 253 k/mm3 (150-375); Red Blood Count 3.82 M/mm3 (4.2-5.4); Red Cell Distribution Width 16.6 % (11.5-14.5); White Blood Count 10.7 K/mm3 (4.5-10.0)
--- NOTE | 2022-03-20 09:52 | PM.IMHP ---
H&P: HPI History of Present Illness Date/Time: 03/20/22 09:52 Chief Complaint: Patient is a 31-year-old LMP 06/20/2021 currently 39 weeks gestation with BERNADETTE 03/27/2022. Patient is dated by LMP consistent with ultrasound on 08/24/2021 at 10 weeks gestation. Patient presents to labor and delivery for scheduled elective induction of labor. In general, patient doing well. Reports occasional contractions. Denies any vaginal bleeding or leakage of fluid. Reports good movement. Review of Systems Review of Systems: All systems reviewed & are unremarkable except as noted in HPI and below Constitutional: Constitutional: Reports as per HPI and Reports no additional constitutional complaints Eyes: Eyes: Reports as per HPI and Reports no additional eye complaints ENT: Reports system reviewed and no additional complaints, except as documented and Reports as per HPI Cardiovascular: Cardiovascular: Reports as per HPI and Reports no additional cardiovascular complaints Respiratory: Respiratory: Reports as per HPI and Reports no additional respiratory complaints Gastrointestinal: Gastrointestinal: Reports as per HPI and Reports no additional gastrointestinal complaints Genitourinary: Genitourinary: Reports no additional female genitourinary complaints and Reports as per HPI Musculoskeletal: Musculoskeletal: Reports no additional musculoskeletal complaints and Reports as per HPI Integumentary/Breasts: Skin/Breast: Reports system reviewed and no additional complaints, except as docu and Reports as per HPI Neurologic: Reports system reviewed and no additional complaints, except as documented and Reports as per HPI Psychiatric: Psychiatric: Reports no additional psychiatric complaints and Reports as per HPI Endocrine: Endocrine: Reports no additional endocrine complaints and Reports as per HPI Hematologic/Lymphatic: Hematologic/Lymphatic: Reports no additional hematologic/lymphatic complaints and Reports as per HPI Allergic/Immunologic: Allergic/Immunologic: Reports no additional allergic/immunologic complaints and Reports as per HPI [facility] Past Medical History Medical History Chorioamnionitis In vitro fertilization Surrogate Post depression Urinary tract infection Vaginal delivery Surgical History Surgical History Hx of appendectomy Family History Family History Father High cholesterol Mother Hypotension Grandparent Chronic obstructive pulmonary disease Social History Social History Smoking status: Never smoker Alcohol intake: former Substance use: never Gender identity (if verbalized by the patient): Female Spiritual care concerns: No Meds Home Medications and Allergies Home Medications Medication Instructions Recorded Confirmed Type ferrous sulfate 325 mg (65 mg 325 mg PO 3XW 03/01/22 03/20/22 History iron) tablet vit no.95-ferrous 1 tablet PO DAILY 03/01/22 03/20/22 History fumarate 28 mg-folic acid 800 mcg tablet () Allergies Allergy/AdvReac Type Severity Reaction Status Date / Time No Known Allergies Allergy Verified 03/07/22 10:55 Vital Signs Vital Signs - 24 hr 03/20/22 07:11 03/20/22 07:16 03/20/22 08:00 Temperature 36.6 C Pulse Rate 95 Blood Pressure 131/84 Oxygen Delivery Room Air 03/20/22 08:16 03/20/22 08:31 03/20/22 08:46 Temperature Pulse Rate 74 81 76 Blood Pressure 128/59 L 118/61 115/59 L Oxygen Delivery 03/20/22 09:02 03/20/22 09:16 Temperature Pulse Rate 86 100 Blood Pressure 135/89 120/77 Oxygen Delivery Exam Const: General: cooperative, healthy appearing, comfortable and no acute distress HENMT: Head: normal to inspection Ears: hearing grossly norm
[2022-03-20 12:12] LABS: Rapid Plasma Reagin Non-Reactive (NonReactive)
--- NOTE | 2022-03-20 13:09 | WPDANESEPP ---
Anes - Eval Pre Procedure Procedure: labor pain management Date/Time: 03/20/22 13:09 Surgeon: Naren Pre Op Diagnosis: iol Patient Data Age: 31 Gender: F Height: 1.65 m Weight: 95 kg Last Vital Signs Temp 98 F 03/20/22 08:00 Pulse 74 03/20/22 13:07 BP 112/56 L 03/20/22 13:07 Pulse Ox 100 03/20/22 12:59 O2 Del Method Room Air 03/20/22 07:11 Allergies Allergy/AdvReac Type Severity Reaction Status Date / Time No Known Allergies Allergy Verified 03/07/22 10:55 Home Medications Medication Instructions Recorded Confirmed Type ferrous sulfate 325 mg (65 mg 325 mg PO 3XW 03/01/22 03/20/22 History iron) tablet vit no.95-ferrous 1 tablet PO DAILY 03/01/22 03/20/22 History fumarate 28 mg-folic acid 800 mcg tablet () Laboratory Tests 03/20/22 03/20/22 03/20/22 07:30 07:30 07:31 WBC 10.7 K/mm3 H K/mm3 (4.5-10.0) RBC 3.82 M/mm3 L M/mm3 (4.2-5.4) Hgb 10.4 g/dL L g/dL (12.0-15.0) Hct 32.3 % L % (37.0-47.0) MCV 84.6 fl fl (80-100) MCH 27.2 pg pg (26-34) MCHC 32.2 g/dl g/dl (32-36) RDW 16.6 % H % (11.5-14.5) Plt Count 253 k/mm3 k/mm3 (150-375) MPV 10.5 fl H fl (7.4-10.4) Immature Gran % (Auto) 4.1 % H % (0-0.5) Neut % (Auto) 62.1 % % (45.5-73.1) Lymph % (Auto) 26.2 % % (18.3-44.2) Lamar % (Auto) 6.2 % % (2.6-8.5) Eos % (Auto) 1.0 % % (0-4.4) Baso % (Auto) 0.4 % % (0.2-1.2) Lymph # (Auto) 2.81 K/mm3 K/mm3 (0.9-3.2) Lamar # (Auto) 0.7 K/mm3 H K/mm3 (0.1-0.6) Eos # (Auto) 0.1 K/mm3 K/mm3 (0-0.3) Baso # (Auto) 0.0 K/mm3 K/mm3 (0.0-0.1) Abs Immat Gran (auto) 0.44 K/mm3 H K/mm3 (0.00-0.031) Absolute Neuts (auto) 6.7 K/mm3 K/mm3 (1.3-6.7) Absolute Nucleated RBC 0.0 K/mm3 K/mm3 (0.0-0.012) Nucleated RBC % 0.0 % % (0.0-0.2) RPR Non-reactive (NonReactive) Blood Type O Positive Antibody Screen Negative Patient hx anesthesia problems: none Family hx anesthesia problems: none Results Review: All pre-operative results and documents have been reviewed as part of the pre-operative evaluation. [facility] Past Medical History Medical History Chorioamnionitis In vitro fertilization Surrogate Post depression Urinary tract infection Vaginal delivery Surgical History Surgical History Hx of appendectomy Family History Family History Father High cholesterol Mother Hypotension Grandparent Chronic obstructive pulmonary disease Social History Social History Smoking status: Never smoker Alcohol intake: former Substance use: never Gender identity (if verbalized by the patient): Female Spiritual care concerns: No Exam Day of Procedure 03/20/22 13:09
--- NOTE | 2022-03-20 14:17 | WPDHPUPDATE1 ---
History and Physical Update Update Date/Time: 03/20/22 14:17 History and Physical has been reviewed, including an updated exam of the patient. There are NO changes in the patient's condition. Risks, benefits, and alternatives have been discussed and questions answered. Patient agrees to proceed with procedure.
[2022-03-20] MEDS: OXYTOCIN 30 UNITS/NS 500 ML 30 UNITS/500 ML BAG 125 UNITS IV CONT (15:42)
--- NOTE | 2022-03-20 15:44 | W.PM.PROC2 ---
Procedure Note - Detailed Date of Procedure 03/20/22 Pre-op Diagnosis Elective IOL at 39 weeks Post-op Diagnosis Same Procedure Performed The patient is a 31-year-old now who presented to labor and delivery on the morning of 03/20/2022 at 39 weeks gestation for scheduled elective induction of labor. Patient was admitted to labor and delivery. Initial cervical exam was approximately 2 cm dilated. Induction of labor was started with Pitocin. Artificial rupture membranes was performed at 8:10 a.m. Clear amniotic fluid was noted. Patient cervical exam was approximately 3 cm dilated at this time. Pitocin was continuously titrated. Patient became uncomfortable and requested an epidural for pain management which states that difficulty. Patient continued to make progressive cervical change and was noted to be fully dilated at 1:45 p.m. Patient was encouraged to push and found to be pushing well. Patient was prepped and draped for delivery. At 3:07 p.m., patient delivered infant head atraumatically and without difficulty in HANK presentation. Occiput restituted to maternal right side. With subsequent push the infant's neck, shoulders, and rest of body delivered without difficulty. A nuchal cord x1 was noted and reduced. Infant was crying spontaneously. Infant's nose and mouth were suctioned with bulb suction. Infant was placed on maternal abdomen where care was assumed by awaiting nursing staff. Delayed cord clamping was performed for approximately 60 seconds. The cord was clamped and cut. A segment of cord was collected for cord gases. Cord blood was collected. The placenta was delivered spontaneously and intact. Uterine fundus was noted to be firm with massage. On inspection, no lacerations were noted. Patient was cleansed and dried. The was a live-born male infant, Apgars 9 and 9, weighing 8 lbs. 1 oz. Estimated blood loss for entire delivery was 150 cc. Both mother and baby doing well at end of delivery. Surgeon Kelly Sneed MD Anesthesia Epidural
--- NOTE | 2022-03-20 15:54 | P.PCNOB_ITS ---
OB - Delivery Note Procedure Delivery date: 03/20/22 Procedure: The patient is a 31-year-old now who presented to labor and delivery on the morning of 03/20/2022 at 39 weeks gestation for scheduled elective induction of labor. Patient was admitted to labor and delivery. Initial cervical exam was approximately 2 cm dilated. Induction of labor was started with Pitocin. Artificial rupture membranes was performed at 8:10 a.m. Clear amniotic fluid was noted. Patient cervical exam was approximately 3 cm dilated at this time. Pitocin was continuously titrated. Patient became uncomfortable and requested an epidural for pain management which states that difficulty. Patient continued to make progressive cervical change and was noted to be fully dilated at 1:45 p.m. Patient was encouraged to push and found to be pushing well. Patient was prepped and draped for delivery. At 3:07 p.m., patient delivered infant head atraumatically and without difficulty in HANK presentation. Occiput restituted to maternal right side. With subsequent push the 's neck, shoulders, and rest of body delivered without difficulty. A nuchal cord x1 was noted and reduced. was crying spontaneously. 's nose and mouth were suctioned with bulb suction. was placed on maternal abdomen where care was assumed by awaiting nursing staff. Delayed cord clamping was performed for approximately 60 seconds. The cord was clamped and cut. A segment of cord was collected for cord gases. Cord blood was collected. The placenta was delivered spontaneously and intact. Uterine fundus was noted to be firm with massage. On inspection, no lacerations were noted. Patient was cleansed and dried. The was a live-born male , Apgars 9 and 9, weighing 8 lbs. 1 oz. Estimated blood loss for entire delivery was 150 cc. Both mother and baby doing well at end of delivery. Events: Elective Induction of Labor Induction method: Per Pitocin Protocol Delivery augmentation: Rupture of Membranes and Pitocin Delivery monitor: External FHT and External Uterine Route of delivery: Laceration Description: None Specimen: Yes (cord gases and cord blood) Quantitative Blood Loss (ml): 150 Anesthesia type: Epidural Disposition: Floor Complications: No immediate complications [place] Baby Date of : 03/20/22 Time of : 15:07 Weeks of gestation at delivery: 39 gender: Male Weight (pounds): 8 Weight (ounces): 11 presentation: vertex position: Right Occiput Anterior Placenta delivery description: Spontaneous Cord Vessel Description: 3 Vessels, Nuchal Cord (x1), Clamped/Cut and Delayed Cord Clamping (x60s) score one minute: 9 score five minutes: 9 AMG Delivery Billing Delivery Delivery: Delivery Charge
[2022-03-20] MEDS: WITCH HAZEL 40 PADS 1 PAD TOPICAL (17:30)
[2022-03-20] MEDS: BENZOCAINE 20% AER SPR (*SP) 56 GM CAN 1 SPRAY TOPICAL (17:30)
[2022-03-21 00:09] VITALS: BP 114/64; PULSE 74; RESP 18; TEMP 36.6; O2SAT 99
[2022-03-21] MEDS: IBUPROFEN 600 MG TABLET PO ×2 (03:21→08:51)
[2022-03-21 04:00] VITALS: BP 117/65; PULSE 70; RESP 18; TEMP 36.6; O2SAT 98
[2022-03-21 05:33] LABS: Hematocrit 32.1 % (37.0-47.0)
--- NOTE | 2022-03-21 07:46 | WPDANLDPN2 ---
Anes-Prog Note L&D Date/Time: 03/21/22 07:46 Comfortable throughout: labor and delivery Neuraxial method: epidural Epidural/Spinal procedure site: clean & non-tender Neuro status: Neuro function grossly intact. Cardiovascular status: normal Respiratory status: normal Airway patency: baseline Mental status: baseline Post-Op hydration status: normal Vital Signs: Last Vital Signs Temp 36.6 C 03/21/22 04:00 Pulse 70 03/21/22 04:00 Resp 18 03/21/22 04:00 BP 117/65 03/21/22 04:00 Pulse Ox 98 03/21/22 04:00 O2 Del Method Room Air 03/20/22 19:39 Pain score (VAS): 08/20 I/O: Intake & Output 03/20/22 03/20/22 03/21/22 15:59 23:59 07:59 Output Total 150 Balance -150 Post-procedural complaints: none Patient feedback: Patient satisfied with anesthetic care.
[2022-03-21 08:00] VITALS: BP 109/57; PULSE 77; PULSE 78; RESP 18; TEMP 36.6; O2SAT 100; O2SAT 99
--- NOTE | 2022-03-21 08:25 | P.PNOB_ITS ---
OB - PN: Subj Subjective Date/time seen: 03/21/22 08:25 Patient doing well. Cramping reasonably controlled with medication. Minimal-moderate lochia. Voiding without difficulty. Ambulating well. OB - PN: Obj Data Labs CBC & Chem 7: 03/21/22 03:11 Labs: Laboratory Results - last 24 hr 03/20/22 03/20/22 03/21/22 07:30 07:31 03:11 Hgb 10.0 L Hct 32.1 L RPR Non-reactive Blood Type O Positive Antibody Screen Negative OB - PN A/P Assessment and Plan (1) Normal spontaneous vaginal delivery: Code(s): O80 - Encounter for full-term uncomplicated delivery Status: Acute Assessment and Plan: PPD#1 doing well continue routine care dc home tomorrow Time Spent With Patient Time: Total time spent is greater than 50% in coordination of care (as documented) at patient's floor/unit and/or counseling patient: Review of Systems Review of Systems: All systems reviewed & are unremarkable except as noted in HPI and below Exam Const: General: cooperative, healthy appearing, comfortable and no acute distress GI: Inspection: non-distended GI Palp: Yes Soft to palpation and No Te nderness to palpation present (GI) Other: fundus firm below umbilicus Extrem: Right lower extremity: no edema Left lower extremity: no edema Other: no calf tenderness
[2022-03-21] MEDS: POLYSACCHARIDE IRON COMPLEX 150 MG CAPSULE PO (08:50)
[2022-03-21] MEDS: DOCUSATE SODIUM 100 MG CAPSULE PO (08:50)
[2022-03-21] MEDS: MULTIVIT/MIN/PREN/FOL AC/IRON TABLET 1 TAB PO (08:50)
--- NOTE | 2022-03-21 09:46 | PC.NURSE ---
[phone] Introductions were made, then consulted with patient to assess needs related to . Mother led the conversation with her?plans to feed?her infant and the?experience so far. Resources provided for inpatient and outpatient services using a resource guide and mom/baby guide. Mother voiced understanding of information and will call if there is a request for assistance.
[2022-03-21 11:42] VITALS: BP 114/58; PULSE 78; RESP 18; TEMP 36.6; O2SAT 99
[2022-03-21] MEDS: ACETAMINOPHEN 325 MG TABLET 650 MG PO (13:28)
[2022-03-21 13:30] VITALS: PULSE 78; RESP 18; O2SAT 99
--- NOTE | 2022-03-21 16:58 | PM.OBPNLAB ---
Pain Control Date/time seen: 03/21/22 16:58 Comments: Patient requesting PPD#1 discharge. Plan is to dc patient home in stable condition.
--- NOTE | 2022-03-21 16:59 | PM.OBDSVD ---
DS: Admitting Diagnosis Discharge Date 03/21/22 Admitting Diagnosis Elective IOL at 39w gestation OB - DS: Summary OB Procedures : None OB Procedures Intrapartum: Spontaneous Vag Delivery OB Procedures: : None Time Spent with Patient Time attestation: Total time spent providing and/or coordinating discharge services: DS: Data Data Completed and Pending Labs on day of discharge: Labs from last 24 hours 03/21/22 03:11 Hgb 10.0 L Hct 32.1 L Discharge Plan Discharge Attending physician on discharge: Kelly Sneed Discharging Clinician: Kelly Sneed Anticipated Discharge Date/Time: 03/21/22 16:59 Patient Disposition: Home, Self-Care Activity: as tolerated and pelvic rest Diet: regular Discharge Instructions: Call office ([phone]) to schedule a visit in 4-6 weeks. You may take Ibuprofen 600mg every 6 hours as needed for pain. Pain medication may make you constipated. It may be helpful to take an [id number] stool softener, such as Colace and/or Senokot, along with the pain medication to help lessen constipation. Call office or go to ED for pain not controlled with medication, headache, chest pain, shortness of breath, fever, chills, persistent nausea or vomiting, severe abdominal pain, heavy vaginal bleeding >2 pads/hour, foul vaginal discharge or odor, or problems with your breasts. Education: Mom and Baby Guide Given to: Mother Follow-Up: Call your delivering provider's office for an appointment to be seen in: 4-6 Weeks Mom and baby should come to the [facility] for the follow-up appointment. Appointment Date/Time: March 22, 2022 at 9:00 am What to expect at your follow-up visit: Blood Pressure Check Physical Assessment Call [phone] if you are unable to keep your appointment time. BREAST CARE: * Wear a snug supportive bra. * For engorgement discomfort: Breast Feeding: * Apply warm moist washcloths * Express milk as needed to relieve engorgement * Wear loose clothing * For sore nipples: * Identify correct latch-on * Apply warm moist washcloths before and after nursing * Air dry nipples after nursing * May apply Lansinoh cream to nipples EPISIOTOMY/PERINEAL CARE: * Until bleeding stops, use your jessika bottle after urinating * Change your pad frequently throughout the day * You may take sitz baths several times a day (fill your bathtub with warm water and soak for 20 minutes.) Do NOT bathe in the water * No tub baths until seen by your physician - You may shower ACTIVITY: * Rest as much as possible. * Do not exercise or lift anything heavier than your baby (such as laundry or other children.) * Avoid stairs or driving as much as possible. * Do not put anything into the vagina. No douching, tampons, or sexual activity until seen by physician. NOTIFY PHYSICIAN IF YOU HAVE ANY QUESTIONS OR IF ANY OF THE FOLLOWING SYMPTOMS OCCUR: * If your vaginal area becomes red, swollen, or more painful than what you have experienced in the hospital. * If your vaginal bleeding becomes foul smelling. * If your vaginal bleeding becomes more heavy than a period or if your bleeding changes from pink to bright red. However, you may pass an occasional walnut-sized clot once or twice for the first week . * If you experience a sharp, shooting pain in your calves. * If you discover a hard, reddened area on your breast or if you experience flu-like symptoms. DIET: * Eat regular, well-balanced meals. * Drink plenty of fluids daily. If , drink to thirst. Patient Instructions: Antibiotic Form, Caring for Your Baby (DC), Vaginal Delivery (DC) Stand Alone Forms: General Discharge Information Follow-up/Referrals: Kelly Sneed MD [Physician] - Discharge Medications: Continued PNV [id number] [id number] []
[2022-03-22 08:49] VITALS: BP 125/59; PULSE 75; RESP 16; TEMP 37.1; O2SAT 100
== END 2022-03-21 18:24 | disposition home or self-care (01) | DRG 560 ==
LOC: ANHLDR 06:58 → ANHOB2 18:17
PROVIDERS: Admitting Provider Student in an Organized Health Care Education/Training Program; Visit Provider Student in an Organized Health Care Education/Training Program
DX: O69.81X0 Labor and delivery complicated by cord around neck, without compression, not applicable or unspecified (principal); O76 Abnormality in fetal heart rate and rhythm complicating labor and delivery; Z3A.39 39 weeks gestation of pregnancy; Z37.0 Single live birth; Z90.49 Acquired absence of other specified parts of digestive tract
CPT/HCPCS: 36415; 85014; 85018; 85025; 86592; 86850; 86900; 86901; A9270; J2590; J2795; J7120

== ENCOUNTER 2022-06-14 00:05 | Day surgery (SDC) | payer OTHER, SELFPAY ==
[2022-06-07 11:03] VITALS: BMI 30.9
--- NOTE | 2022-06-07 11:08 | PC.NURSE ---
Report to the Outpatient Waiting Room, entrance under the green pavilion located off [address], at time 1100 on date 06/14/22. Planned Procedure Time: 1300. Time changes happen often and if your time is changed the preop area will call you the afternoon before. - You and your visitor will be asked to self-screen and do not enter if you have any COVID symptoms. - We encourage only one visitor and NO visitors under age 16 are allowed at this time. Your visitor will receive communication by the phone number that is given day of service. - The patient visitor is requested to social distance or may leave the building when not with patient due to restrictions. - A mask is OPTIONAL within the hospital. Patients may have clear liquids (water, carbonated beverages, clear teas, apple juice) until 3 hours prior to surgery with a maximum of 20 ounces. - No food from midnight until time of surgery Take the following medications with a SIP of water the morning of surgery: BUSPIRONE Medications to discontinue per physician: VITAMIN Date to take last dose: 06/10/22 Please no make-up, nail tamazight, hairspray, perfume, deodorant, or body powder the day of surgery. No jewelry (including any body piercings) or valuables the day of surgery, leave them at home. Please take a shower or bath the night before, or the morning of, surgery with an antibacterial soap. Wear comfortable, loose fitting clothing. - Jewelry must be removed prior to entering the operating room. Rings and piercings that are not removed may be cut off. - The hospital will not accept responsibility for valuables. - Please leave all valuables, including medications, at home the day of surgery. If you are going home after surgery, a licensed team driver must drive you home. - NO public transportation without another adult. - We recommend that an adult stay with you for 24 hours following discharge. - We also recommend that you do not drive, make important decision, drink alcoholic beverages, or take any drugs that were not prescribed by your health care provider for at least 24 hours after your discharge time. Follow any additional instructions given to you from your surgeon. If you or anyone in your household have experienced Covid symptoms in the past week, please notify your surgeon or the nurse liaison at the phone number below for possible testing. Telephone instructions given to PT - JOSE RENTERIA and asked if any additional questions and then verbalized understanding. Patient advised to call surgeon office or pre surgery nurse liaison [phone] if any additional questions.
--- NOTE | 2022-06-13 16:31 | PM.IMHP ---
H&P: HPI History of Present Illness Date/Time: 06/13/22 16:31 Chief Complaint: Desires permanent sterilization Narrative: Patient is a 31-year-old woman who presents for permanent sterilization. Patient does not desire future fertility stating that she is certain she does not want any more children in the future. She declines all alternative methods of contraception. In general, patient reports feeling well today without complaints. Review of Systems Review of Systems: All systems reviewed & are unremarkable except as noted in HPI and below Constitutional: Constitutional: Reports as per HPI and Reports no additional constitutional complaints Eyes: Eyes: Reports as per HPI and Reports no additional eye complaints ENT: Reports system reviewed and no additional complaints, except as documented and Reports as per HPI Cardiovascular: Cardiovascular: Reports as per HPI and Reports no additional cardiovascular complaints Respiratory: Respiratory: Reports as per HPI and Reports no additional respiratory complaints Gastrointestinal: Gastrointestinal: Reports as per HPI and Reports no additional gastrointestinal complaints Genitourinary: Genitourinary: Reports no additional female genitourinary complaints and Reports as per HPI Musculoskeletal: Musculoskeletal: Reports no additional musculoskeletal complaints and Reports as per HPI Integumentary/Breasts: Skin/Breast: Reports system reviewed and no additional complaints, except as docu and Reports as per HPI Neurologic: Reports system reviewed and no additional complaints, except as documented and Reports as per HPI Psychiatric: Psychiatric: Reports no additional psychiatric complaints and Reports as per HPI Endocrine: Endocrine: Reports no additional endocrine complaints and Reports as per HPI Hematologic/Lymphatic: Hematologic/Lymphatic: Reports no additional hematologic/lymphatic complaints and Reports as per HPI Allergic/Immunologic: Allergic/Immunologic: Reports no additional allergic/immunologic complaints and Reports as per HPI [facility] Past Medical History Medical History Chorioamnionitis In vitro fertilization Surrogate Post depression Urinary tract infection Vaginal delivery Surgical History Surgical History Hx of appendectomy Family History Family History Father High cholesterol Mother Hypotension Grandparent Chronic obstructive pulmonary disease Social History Social History Years smoked: 4 Smoking status: Former smoker Tobacco type: cigarettes Smoking end date: 08/11/09 Alcohol intake: never Substance use: never Substance use type: does not use Gender identity (if verbalized by the patient): Female Spiritual care concerns: No Meds Home Medications and Allergies Home Medications Medication Instructions Recorded Confirmed Type vit no.95-ferrous 1 tablet PO DAILY 03/01/22 06/07/22 History fumarate 28 mg-folic acid 800 mcg tablet () buspirone 15 mg tablet 15 mg PO BID #60 tabs 04/24/22 06/07/22 Rx Allergies Allergy/AdvReac Type Severity Reaction Status Date / Time No Known Allergies Allergy Verified 06/07/22 11:03 Exam Const: General: cooperative, healthy appearing, comfortable and no acute distress HENMT: Head: normal to inspection Ears: hearing grossly normal bilaterally Eyes: General: appearance normal, both eyes and all related structures Neck: Neck: normal visual inspection Resp: Effort & Inspection: normal respiratory effort Auscultation: clear to auscultation bilaterally Cardio: Rate: regular rate Rhythm: regular rhythm GI: Inspection: non-distended GI Palp: Yes Soft to palpation and No Tenderness to palpation present (GI) : Ot
[2022-06-14] VITALS (9 sets, daily range): BP systolic 96–111; BP diastolic 52–82; PULSE 60–87; RESP 8–16; TEMP 36.2–36.4; O2SAT 97–100
[2022-06-14] MEDS: LACTATED RINGERS 1,000 ML 30 ML IV CONT ×2 (10:15→12:33)
--- NOTE | 2022-06-14 10:40 | WPDANESEPPF ---
Anes - Initial Pre Proc Eval Procedure: Operation Date: 06/14/22 11:30 Proposed Procedures p Bilateral Laparoscopic Salpingectomy - Kelly Sneed MD Date/Time: 06/14/22 10:40 Surgeon: Kelly Sneed MD Pre Op Diagnosis: Desire Sterilization Patient Data Age: 31 Gender: F Height: 1.65 m Weight: 84.37 kg Allergies Allergy/AdvReac Type Severity Reaction Status Date / Time No Known Allergies Allergy Verified 06/07/22 11:03 Home Medications Medication Instructions Recorded Confirmed Type vit no.95-ferrous 1 tablet PO DAILY 03/01/22 06/07/22 History fumarate 28 mg-folic acid 800 mcg tablet () buspirone 15 mg tablet 15 mg PO BID #60 tabs 04/24/22 06/07/22 Rx Patient hx anesthesia problems: none Family hx anesthesia problems: none Results Review: All pre-operative results and documents have been reviewed as part of the pre-operative evaluation. [facility] Past Medical History Medical History Chorioamnionitis In vitro fertilization Surrogate Post depression Urinary tract infection Vaginal delivery Surgical History Surgical History Hx of appendectomy Family History Family History Father High cholesterol Mother Hypotension Grandparent Chronic obstructive pulmonary disease Social History Social History Years smoked: 4 Smoking status: Former smoker Tobacco type: cigarettes Smoking end date: 08/11/09 Alcohol intake: never Substance use: never Substance use type: does not use Living arrangements: with family Gender identity (if verbalized by the patient): Female Spiritual care concerns: No Anes - Eval Final PreProcedure Day of Procedure 06/14/22 10:40 Patient weight: overweight Heart: regular rate and rhythm Lungs: clear to auscultation Airway: Mallampati scale class 1 Neurological: alert and oriented Last oral intake: >/= 8 hours ASA classification: II Emergent: no Anesthetic plan: proceed Anesthesia type and monitoring: general GIVS and standard monitoring Results Review: All pre-operative results and documents have been reviewed as part of the pre-operative evaluation. Informed Consent: The patient's anesthetic plan and its attendant risks and benefits were discussed with the patient/family/POA. Questions were solicited and answers provided to the satisfaction of the patient/family/POA.
[2022-06-14] MEDS: ACETAMINOPHEN 500 MG TABLET 1000 MG PO (11:00)
[2022-06-14] MEDS: KETOROLAC 15 MG/ML VIAL (*BKC) IV PUSH (11:00)
--- NOTE | 2022-06-14 11:15 | WPDHPUPDATE1 ---
History and Physical Update Update Date/Time: 06/14/22 11:15 History and Physical has been reviewed, including an updated exam of the patient. There are NO changes in the patient's condition. Risks, benefits, and alternatives have been discussed and questions answered. Patient agrees to proceed with procedure.
[2022-06-14] MEDS: BUPIVACAINE/EPINEPHRINE 0.25% 50 ML VIAL INFILTRATE (12:23)
--- NOTE | 2022-06-14 12:35 | W.PM.PROC2 ---
Procedure Note - Detailed Date of Procedure 06/14/22 Pre-op Diagnosis Multiparity Desires permanent sterilization Post-op Diagnosis Same Procedure Performed Laparoscopic bilateral salpingectomy Surgeon Kelly Sneed MD Pig Sticker Columba Vizcarra Anesthesia General Findings Normal appearing uterus, ovaries, and fallopian tubes bilaterally Description of Procedure The patient was taken to the operating room, where she self transferred to the operating room table.? She was placed in dorsal supine position.? General anesthesia was administered and found to be adequate.? The patient was then repositioned in dorsal lithotomy position with the use of Lino stirrups.? She was prepped and draped in the usual sterile fashion.? A red rubber catheter was used to drain the bladder of 25 cc of dark concentrated urine.? A sponge stick was inserted in the vagina for elevation of the uterus during the laparoscopic portion of the case.? Dj Instructor's gloves were changed.? Attention was then turned to the patient's abdomen.? A small amount of 0.25% Marcaine with epinephrine was injected in infraumbilical region.? An infraumbilical skin incision was made with a scalpel. With the abdomen tented up, a Veress needle was introduced into the abdominal cavity.? Intra-abdominal placement was confirmed with saline.? The Veress needle was connected to CO2 tubing and insufflation was begun.? When adequate pneumoperitoneum was achieved, the Veress needle was removed and a 5 mm Optiview trocar was introduced under direct visualization with the laparoscope.? The patient was placed in Trendelenburg position and a brief pelvic survey was performed with good visualization.? Decision was made to place two accessory trocars for completion of the procedure, one in the left lower quadrant and the other in the right lower quadrant. A small amount of Marcaine was administered in the left lower quadrant and a skin incision was made. A 5 mm trocar was introduced under direct visualization. Similarly, a small amount of Marcaine was administered in the right lower quadrant and a skin incision was made. Another 5 mm trocar was introduced under direct visualization. With the use of blunt graspers, a general pelvic survey was performed. The uterus, ovaries and fallopian tubes appeared to be normal bilaterally. A photograph was taken. The left fallopian tube was identified and followed through to the fimbriated end. Starting at the fimbriated end, sequential bites in the mesosalpinx beneath the fallopian tube were taken using a 5 mm LigaSure device towards the uterine cornua. When the level of the uterine cornua was reached, the fallopian tube was transected and completely detached.? The fallopian tube was then removed and handed off to be sent to pathology. Attention was then turned to the patient's right fallopian tube, which in a similar manner, was grasped and followed through to the fimbriated end. With the use of the LigaSure device, sequential bites in the mesosalpinx beneath the fallopian tube were taken until the level of the uterine cornua was reached. The fallopian tube was then transected, completely detached, and removed. No bleeding was noted. Another photograph was taken. An general abdominal survey was performed. The liver and gallbladder appeared normal. One additional photograph was taken. The abdomen was desufflated and all trocars were removed. The patient's abdomen was cleansed and dried. The incision sites were closed with 4-0 Monocryl in a subcuticular fashion and a skin adhesive was applied on top of the incisions.? The sponge stick was removed from the vagina.? No bleeding was noted.? The patient was cleansed and dried and taken out of the dorsal lithotomy position.? She was awakened from anesthesia without difficulty and transported to the recovery room in stable condition.? All sponge, lap, and instrument counts were correct at the end the procedure.? The patient tolerated the entire procedure wel
[2022-06-14] MEDS: fentaNYL CITRATE INJ (*CRX) 100 MCG/2 ML VIAL 25 MCG IV PUSH ×2 (13:14→13:17)
[2022-06-14] MEDS: oxyCODONE HCL (*CRX) 5 MG TAB IR PO (14:08)
== END 2022-06-14 14:53 | disposition home or self-care (01) ==
PROVIDERS: Visit Provider Student in an Organized Health Care Education/Training Program
PROC: (CPT 49320; principal; 2022-06-14 11:30)
DX: Z30.2 Encounter for sterilization (principal); Z87.891 Personal history of nicotine dependence
CPT/HCPCS: 58661; 88302; A9270; J1100; J1885; J2250; J2405; J2704; J3010; J7030; J7120

== ENCOUNTER 2022-08-15 10:19 | Emergency (ER) | payer OTHER, SELFPAY ==
[2022-08-15 10:26] VITALS: BP 133/78; PULSE 92; RESP 14; TEMP 37.9; O2SAT 100
--- NOTE | 2022-08-15 10:26 | ED.FEMALEGU ---
HPI - Female Genitourinary General Chief complaint: Urogenital-Female Stated complaint: poss uti Time Seen by Provider: 08/15/22 10:26 Source: patient and RN notes reviewed History of Present Illness HPI Narrative: patient is a 31-year-old female who presents to urgent care with complaints of possible UTI. Patient states that last night she started with urinary urgency, frequency and hematuria. Patient states she now has a low-grade fever as of this morning. Patient does have a history of UTIs and has had sepsis in the past. Patient denies any abdominal pain, nausea or vomiting. Patient is not taking anything [id number] for her symptoms. No other acute complaints. No acute distress noted. Patient aware of the plan of care. Some parts of this dictation were generated by voice recognition software and may contain typographical and/or grammatical inaccuracies. Related Data Home Medications Medication Instructions Recorded Confirmed vit no.95-ferrous 1 tablet PO DAILY 03/01/22 06/14/22 fumarate 28 mg-folic acid 800 mcg tablet () Allergies Allergy/AdvReac Type Severity Reaction Status Date / Time No Known Allergies Allergy Verified 08/15/22 10:39 Review of Systems Review of Systems: CONSTITUTIONAL: Denies fever, chills, or sweats. EYES: Denies visual changes, redness, or discharge. ENT: Denies rhinorrhea, congestion, sore throat, or otalgia. CARDIOVASCULAR: Denies chest pain, palpitations, or edema. RESPIRATORY: Denies cough or dyspnea. GASTROINTESTINAL: Denies abdominal pain, nausea, vomiting, or diarrhea. GENITOURINARY: Reports of hematuria, dysuria, urgency and frequency SKIN: Denies rash or itching. MUSCULOSKELETAL: Denies back pain, joint pain, or myalgia. NEUROLOGIC: Denies headache, numbness, or weakness. All other systems reviewed are negative, except as documented in HPI. [facility] Past Medical History Medical History (Updated 08/15/22 @ 10:53 by ROMAN Fountain) Chorioamnionitis In vitro fertilization Surrogate Post depression Urinary tract infection Vaginal delivery Surgical History Surgical History (Updated 06/26/22 @ 10:04 by Mei Alves MA) History of bilateral salpingectomy 06/14/22 Hx of appendectomy S/P laparoscopic surgery 06/14/22 Family History Family History Father High cholesterol Mother Hypotension Grandparent Chronic obstructive pulmonary disease Social History Social History Years smoked: 4 Smoking status: Former smoker Tobacco type: cigarettes Smoking end date: 08/11/09 Alcohol intake: never Substance use: never Substance use type: does not use Gender identity (if verbalized by the patient): Female Sexual Orientation (if Verbalized by the Patient): Straight or Heterosexual Spiritual care concerns: No Comments At the time of my signature, I reviewed and agree with the nursing past medical, surgical, social, and family history. There is no relevant family history pertinent to the patient complaint. Exam Narrative: GENERAL: This is a well-nourished, well-developed patient, in no apparent distress. HEAD: normocephalic, atraumatic. EYES: PERRL. Sclera clear/white. Vision is grossly intact. EARS: External ears normal NOSE: External nose normal with no obvious nasal discharge, nares without redness, no rhinorrhea. THROAT: Mucous membranes moist NECK: Neck supple CARDIOVASCULAR: Regular rate and rhythm without murmurs, gallops, or rubs. RESPIRATORY: Clear to auscultation. Breath sounds equal bilaterally. No wheezes, rales, or rhonchi. GASTROINTESTINAL: Abdomen soft, non-tender, nondistended. Bowel sounds are active. No hepato-splenomegaly, or palpable masses. No guarding. SKIN: warm, intact with no suspicious lesions or rash, good texture and turgor. NEURO: awake, alert, an
== END 2022-08-15 11:01 | disposition home or self-care (01) ==
PROVIDERS: Emergency Provider Nurse Practitioner Family; PCP Nurse Practitioner Family
DX: N39.0 Urinary tract infection, site not specified (principal); Z87.891 Personal history of nicotine dependence
CPT/HCPCS: 81003; 87077; 87086; 87186; 99213; G0463

== ENCOUNTER 2022-10-28 15:12 | Outpatient (CLI) | payer OTHER, SELFPAY ==
--- NOTE | ~2022-10-28 | US_ITS ---
Pelvic ultrasound. Clinical History: Pelvic pain Technique: Realtime transabdominal and transvaginal scanning of the pelvis was performed. Color flow Doppler and Doppler spectral analysis were performed. Findings: The uterus is anteverted. The endometrial stripe has a thickness of 7 mm. Cervical nabothi an cysts are noted. Focal calcification noted adjacent to the endometrial stripe. The right ovary measures 2.2 x 3.3 x 2.2 cm. No significant right ovarian or adnexal mass is seen. The left ovary measures 1.7 x 3.4 x 2.4 cm. No significant left ovarian or adnexal mass is seen. Vascular flow present in both ovaries on Doppler spectral analysis. There is no evidence of free fluid in the cul de sac. Impression: Probable focal small calcified fibroid adjacent to the endometrial stripe. No other significant findings. Reviewed, dictated and finalized at [facility]. Impression: Probable focal small calcified fibroid adjacent to the endometrial stripe. No other significant findings.
== END 2022-10-28 15:13 | disposition home or self-care (01) ==
PROVIDERS: PCP Nurse Practitioner Family; Visit Provider Registered Nurse
DX: R10.2 Pelvic and perineal pain (principal)
CPT/HCPCS: 76830; 76856

== ENCOUNTER 2023-07-01 15:44 | Emergency (ER) | payer OTHER, SELFPAY ==
[2023-07-01 15:57] VITALS: BP 139/70; PULSE 99; RESP 16; TEMP 36.2; O2SAT 99
--- NOTE | 2023-07-01 16:37 | ED.GENADULT ---
HPI - General Adult General Chief complaint: Urogenital-Female Stated complaint: STD Exposure Source: patient Mode of arrival: ambulatory Limitations: no limitations History of Present Illness HPI narrative: Patient presents requesting testing for sexually transmitted infections. She had to sexual encounters 1 male partner on 06/20/2023 and 06/27/2023 and would like to have routine testing performed. She performed oral intercourse and engaged in unprotected vaginal intercourse. She denies any sore throat, vaginal bleeding/discharge, urinary symptoms. She does not believe that sex partner is currently symptomatic. History of salpingectomy. Related Data Home Medications Medication Instructions Recorded Confirmed vit no.95-ferrous 1 tablet PO DAILY 03/01/22 06/14/22 fumarate 28 mg-folic acid 800 mcg tablet () clonazepam 0.5 mg tablet 0.25 mg PO QHS PRN 09/24/22 escitalopram oxalate 10 mg tablet 10 mg PO DAILY 09/24/22 (Lexapro) Allergies Allergy/AdvReac Type Severity Reaction Status Date / Time No Known Allergies Allergy Verified 11/22/22 13:33 Review of Systems Review of Systems: CONSTITUTIONAL: Denies fever, chills, or sweats. EYES: Denies visual changes, redness, or discharge. ENT: Denies rhinorrhea, congestion, sore throat, or otalgia. CARDIOVASCULAR: Denies chest pain, palpitations, or edema. RESPIRATORY: Denies cough or dyspnea. GASTROINTESTINAL: Denies abdominal pain, nausea, vomiting, or diarrhea. GENITOURINARY: Denies dysuria or hematuria. SKIN: Denies rash or itching. MUSCULOSKELETAL: Denies back pain, joint pain, or myalgia. NEUROLOGIC: Denies headache, numbness, dizziness, or weakness. PSYCHIATRIC: Denies anxiety or depression. [facility] Past Medical History Medical History Chorioamnionitis In vitro fertilization Surrogate Post depression Urinary tract infection Vaginal delivery Surgical History Surgical History History of bilateral salpingectomy 06/14/22 Hx of appendectomy S/P laparoscopic surgery 06/14/22 Family History Family History Father High cholesterol Mother Hypotension Grandparent Chronic obstructive pulmonary disease Social History Social History Years smoked: 4 Smoking status: Former smoker Tobacco type: cigarettes Smoking end date: 08/11/09 Alcohol intake: never Substance use: never Substance use type: does not use Lack of Transportation: No Lack of Food: Never True Current Housing: I Have Housing Concerned About Future Housing: No Difficulty Paying Gas/Electric Bills: No Difficulty Paying for Meds: No Currently Unemployed: No Difficulty w/ Childcare or Family Care: No Living arrangements: with family Occupation/Education: occupation Gender identity (if verbalized by the patient): Female Sexual Orientation (if Verbalized by the Patient): Straight or Heterosexual Spiritual care concerns: No Exam Narrative: GENERAL: Well-appearing, well-nourished, and in no acute distress. HEAD: Normocephalic, atraumatic. EYES: PERRLA and EOMI. ENT: Nares clear, no rhinorrhea or epistaxis. Mucous membranes moist. Oropharynx without tonsillar hypertrophy exudate or other lesions. Bilateral TMs pearly grider nonbulging NECK: Supple. No adenopathy or masses. No carotid bruits or JVD CHEST: Clear to auscultation. No respiratory distress. No wheezes rales or rhonchi HEART: Regular rate and rhythm. No murmur heard. Normal peripheral pulses. ABDOMEN: Soft, nontender, nondistended, normal active bowel sounds. EXTREMITIES: Normal range of motion. No edema. SKIN: Warm, dry, no rash. NEURO: No focal deficits. Alert and oriented x3. PSYCH: Normal mood and affect.
[2023-07-01 21:42] LABS: Chlamydia trachomatis NOT DETECTED (NOT DETECTE); Neisseria gonorrhoeae PCR NOT DETECTED (NOT DETECTE)
[2023-07-01 22:56] LABS: Trichomonas Vag PCR NOT DETECTED (NOT DETECTE)
[2023-07-01 23:18] LABS: Chlamydia trachomatis NOT DETECTED (NOT DETECTE); Neisseria gonorrhoeae PCR NOT DETECTED (NOT DETECTE)
== END 2023-07-01 16:43 | disposition home or self-care (01) ==
PROVIDERS: Emergency Provider Nurse Practitioner; PCP Nurse Practitioner Family
DX: Z11.3 Encounter for screening for infections with a predominantly sexual mode of transmission (principal); Z87.891 Personal history of nicotine dependence
CPT/HCPCS: 81003; 87491; 87591; 87661; 99214; G0463

== ENCOUNTER 2023-09-15 10:28 | Outpatient (CLI) | payer OTHER, SELFPAY ==
[2023-09-15 11:53] LABS: HIV 1/2 Ab P24 Ag Result Negative (Negative); Hepatitis B Surface Antigen Negative (Negative)
[2023-09-15 12:10] LABS: Hepatitis C Virus Antibody Negative (Negative)
[2023-09-15 13:42] LABS: Rapid Plasma Reagin Non-Reactive (NonReactive)
== END 2023-09-15 10:29 | disposition home or self-care (01) ==
LOC: ANHLAB 10:29
PROVIDERS: PCP Nurse Practitioner Family; Visit Provider Registered Nurse
DX: Z20.2 Contact with and (suspected) exposure to infections with a predominantly sexual mode of transmission (principal)
CPT/HCPCS: 36415; 86592; 86703; 86803; 87340; G0432

== ENCOUNTER 2023-10-03 12:40 | Emergency (ER) | payer OTHER, SELFPAY ==
--- NOTE | ~2023-10-03 | CT_ITS ---
EXAMINATION: CT abdomen pelvis w con DATE: 10/03/2023 17:24 INDICATION: Left lower quadrant abdominal pain. TECHNIQUE: Computed tomography (CT) of the abdomen and pelvis was performed with 100 mL Omnipaque 350 intravenous contrast. Automated exposure control and iterative reconstruction technique were employe d. The dose-length product was 674.64 mGy-cm. COMPARISON: Pelvis ultrasound 10/28/2022 FINDINGS: The visualized portions of the lung bases demonstrate minimal atelectasis. No pleural effus ion. The heart size is normal. There is a trace pericardial effusion. The liver, gallbladder, spleen, pancreas, adrenal glands, and kidneys are normal. There is a 2.8 cm corpus luteum cyst in right ovar y. There is a 2.1 cm corpus luteum cyst in left ovary. There are no dilated loops of bowel. There are changes of appendectomy. There are no pathologically enlarged lymph nodes. There is physiologic flui d in the pelvis. There is mild thoracic and lumbar spondylosis. IMPRESSION: 1. No specific etiology for the patient's symptoms. Reviewed, dictated and finalized at location E. [employer]
[2023-10-03 12:50] VITALS: BP 128/64; PULSE 114; RESP 16; TEMP 36.2; O2SAT 99
--- NOTE | 2023-10-03 16:19 | ED.ABDPAIN ---
HPI - Abdominal Pain General Chief Complaint: Urogenital-Female Stated Complaint: back pain Time Seen by Provider: 10/03/23 16:09 Source: patient Mode of arrival: ambulatory Limitations: no limitations History of Present Illness HPI narrative: Jenna is a 32-year-old female patient presenting to the clinic today with complaints left lower quadrant abdominal pain/left flank pain. Reports symptoms started this morning. Went to urgent care and was told to into the ER. Stated she had KUB and urine tested at the clinic and did not show any concern. History of frequent UTIs. Does not have any concern for an sexually transmitted infections. Denies any vaginal discharge or bleeding. Related Data Home Medications Medication Instructions Recorded Confirmed clonazepam 0.5 mg tablet 0.25 mg PO QHS PRN 09/24/22 methylphenidate HCl 18 mg 18 mg PO QAM 09/15/23 tablet,extended release 24 hr (Concerta) venlafaxine 50 mg tablet 50 mg PO DAILY 09/15/23 Allergies Allergy/AdvReac Type Severity Reaction Status Date / Time No Known Allergies Allergy Verified 09/15/23 09:50 Review of Systems Review of Systems: Pertinent positives per HPI. Patient denies any fever, chills, rash, headache, visual changes, dizziness, cough, runny nose, sore throat, shortness of breath, chest pain, palpitations, nausea, vomiting, diarrhea, constipation, or any urinary issues. [facility] Past Medical History Medical History Chorioamnionitis In vitro fertilization Surrogate Post depression Urinary tract infection Vaginal delivery Surgical History Surgical History History of bilateral salpingectomy 06/14/22 Hx of appendectomy S/P laparoscopic surgery 06/14/22 Family History Family History Father High cholesterol Mother Hypotension Grandparent Chronic obstructive pulmonary disease Social History Social History Years smoked: 4 Smoking status: Former smoker Tobacco type: cigarettes Smoking end date: 08/11/09 Alcohol intake: never Substance use: never Substance use type: does not use Lack of Transportation: No Lack of Food: Never True Current Housing: I Have Housing Concerned About Future Housing: No Difficulty Paying Gas/Electric Bills: No Difficulty Paying for Meds: No Currently Unemployed: No Difficulty w/ Childcare or Family Care: No Living arrangements: with family Occupation/Education: occupation Gender identity (if verbalized by the patient): Female Sexual Orientation (if Verbalized by the Patient): Straight or Heterosexual Spiritual care concerns: No Comments At the time of my signature, I reviewed and agree with the nursing past medical, surgical, social, and family history. There is no relevant family history pertinent to the patient complaint. Exam Narrative: General: Well-developed, well nourished, in no apparent distress. Head: Normocephalic, atraumatic. Cardio: Regular rate and rhythm, s1 and s2 normal, no murmur appreciated. Resp: Clear to auscultation bilaterally, no rhonchi, rales, wheezing or rubs. Abdomen: Soft, pliable, bowel sounds present in all quadrants, tender to palpation over the left lower quadrant, no organomegly, no CVAT tenderness. Course Course Emergency Course: Portions of this record may have been created with voice recognition software. Vital Signs Vital signs: Vital Signs Temperature 36.2 C L 10/03/23 12:50 Pulse Rate 114 H 10/03/23 12:50 Respiratory Rate 16 10/03/23 12:50 Blood Pressure 128/64 10/03/23 12:50 Pulse Oximetry 99 10/03/23 12:50 Temperature 36.2 C L 10/03/23 12:50 Pulse Rate 98 10/03/23 17:03 Respiratory Rate 19 10/03/23 17:03 Blood Pressu
[2023-10-03] MEDS: HYDROmorphone HCL INJ (*CRX) 1 MG/ML SYR 0.5 MG IV PUSH (16:26)
[2023-10-03] MEDS: ONDANSETRON INJ 4 MG/2 ML VIAL IV PUSH (16:26)
[2023-10-03] MEDS: SODIUM CHLORIDE 0.9% IV 1,000 ML 999 ML IV CONT (16:26)
[2023-10-03 16:58] LABS: Basophils Percent Auto 0.4 % (0.2-1.2); Eosinophils Percent Auto 0.2 % (0-4.4); Hematocrit 38.2 % (37.0-47.0); Hemoglobin 11.8 g/dL (12.0-15.0); Immature Granulocyte Absolute 0.02 K/mm3 (0.00-0.031); Immature Granulocyte Percent A 0.4 % (0-0.5); Lymphocytes Absolute Auto 1.14 K/mm3 (0.9-3.2); Lymphocytes Percent Auto 22.3 % (18.3-44.2); Mean Corpuscular HGB Conc 30.9 g/dl (32-36); Mean Corpuscular Hemoglobin 27.6 pg (26-34); Mean Corpuscular Volume 89.5 fl (80-100); Mean Platelet Volume 10.7 fl (7.4-10.4); Monocytes Absolute Auto 0.5 K/mm3 (0.1-0.6); Monocytes Percent Auto 9.6 % (2.6-8.5); Neutrophils Absolute Auto 3.4 K/mm3 (1.3-6.7); Neutrophils Percent Auto 67.1 % (45.5-73.1); Platelet Count Result 251 k/mm3 (150-375); Red Blood Count 4.27 M/mm3 (4.2-5.4); Red Cell Distribution Width 13.2 % (11.5-14.5); White Blood Count 5.1 K/mm3 (4.5-10.0)
[2023-10-03 17:03] VITALS: BP 128/76; PULSE 98; RESP 19; O2SAT 100
[2023-10-03 17:07] LABS: Appearance Urine Clear (Clear); Bacteria Urine None Seen /hpf; Bilirubin Urine 1+ (Negative); Blood Urine Negative (Negative); Color Urine Dark Yellow (Yellow); Glucose Urine UA Negative (Negative); Ketones Urine Trace mg/dL (Negative); Leukocyte Esterase Ur Trace LEU/UL (Negative); Need Manual Microscopic Reviewed; Nitrate Urine Positive (Negative); Non Pathogenic Casts 0-2; Protein Urine Negative (Negative); RBC Urine 0-2 /hpf (0-2); Specific Grav Ur 1.008 (1.001-1.035); Squamous Epithelial Cell Urine Occasional /hpf (Few); WBC Urine 0-5 /hpf
[2023-10-03 17:08] LABS: Alanine Aminotransferase 18 U/L (6-35); Albumin Level 4.9 g/dL (3.5-5.1); Alkaline Phosphatase 53 U/L (38-126); Anion Gap 8 mmol/L (8-16); Aspartate Amino Transferase 31 U/L (14-36); Bilirubin,Total 0.9 mg/dL (0.2-1.3); Blood Urea Nitrogen 8 mg/dL (7-17); Calcium 9.4 mg/dL (8.4-10.2); Carbon Dioxide 27 mmol/L (22-30); Chloride 100 mmol/L (98-107); Estimated CRCL calculation 90 ml/min; Estimated Glomerular Filt Rate > 60; Glucose 93 mg/dL (65-110); Lipase 78 U/L (23-300); Potassium 3.3 mmol/L (3.4-5.0); Sodium 135 mmol/L (137-145)
[2023-10-03 17:10] LABS: Add Urine Microscopic? YES
[2023-10-03] MEDS: KETOROLAC 15 MG/ML VIAL (*BKC) IV PUSH (18:32)
[2023-10-03 18:35] VITALS: BP 121/64; PULSE 99; RESP 18; O2SAT 100
== END 2023-10-03 18:53 | disposition home or self-care (01) ==
PROVIDERS: Emergency Provider Nurse Practitioner Family; PCP Nurse Practitioner Family
DX: N30.00 Acute cystitis without hematuria (principal); Z87.440 Personal history of urinary (tract) infections; Z87.891 Personal history of nicotine dependence; Z90.79 Acquired absence of other genital organ(s)
CPT/HCPCS: 36415; 74177; 80053; 81001; 81025; 83690; 85025; 96361; 96374; 96375; 99284; J1170; J1885; J2405; J7030; Q9967

== ENCOUNTER 2024-04-06 15:19 | Outpatient (CLI) | payer OTHER, SELFPAY ==
--- NOTE | ~2024-04-06 | US_ITS ---
EXAMINATION: US pelvic complete w TV DATE: 04/06/2024 16:44 INDICATION: Pelvic and perineal pain. TECHNIQUE: Multiple transabdominal sonographic images of the pelvis were obtained. COMPARISON: CT abdomen and pelvis 10/03/2023 FINDINGS: The uterus measures 6.5 x 4.1 x 5.1 cm. There is no free fluid in the pelvis. The endometrial complex measures 5 mm in thickness. There are nabothian cysts in the cervix. The right ovary measures 2.2 x 2.2 x 1.6 cm. The left ovary measures 2.4 x 2.3 x 1.4 cm. There is normal vascular flow in the ovarie s. IMPRESSION: 1. No etiology for the patient's symptoms. Reviewed, dictated and finalized at location A.
== END 2024-04-06 15:20 | disposition home or self-care (01) ==
LOC: ANHIMG 15:21
PROVIDERS: PCP Nurse Practitioner Family; Visit Provider Nurse Practitioner Obstetrics & Gynecology
DX: R10.2 Pelvic and perineal pain (principal)
CPT/HCPCS: 76830; 76856

== ENCOUNTER 2024-04-29 08:56 | Emergency (ER) | payer OTHER, SELFPAY ==
[2024-04-29 09:01] VITALS: BP 128/69; PULSE 86; RESP 16; TEMP 36.9; O2SAT 100
--- NOTE | 2024-04-29 09:33 | ED.FEMALEGU ---
HPI - Female Genitourinary General Chief complaint: Urogenital-Female Stated complaint: Urinary Problem/Dizziness Time Seen by Provider: 04/29/24 09:20 Source: patient and RN notes reviewed Mode of arrival: ambulatory Limitations: no limitations History of Present Illness HPI Narrative: Patient presents today complaining of 3 day history of dysuria, incomplete bladder emptying, urgency, and lower abdominal cramping. She has been taking azo for her symptoms without much relief. History of urosepsis in 2017. Last urine culture at the beginning of the year showed E coli, but the previous 5 before that into 2019 were all negative. Patient took azo recently so unable to do bedside urinalysis. Patient is also reporting vertigo since this morning. She has had 4 previous episodes of vertigo in the past and is treating with meclizine with some mild relief. Related Data Home Medications Medication Instructions Recorded Confirmed clonazepam 0.5 mg tablet 0.25 mg PO QHS PRN Anxiety 09/24/22 04/29/24 lisdexamfetamine 50 mg capsule 50 mg PO DAILY 03/26/24 04/29/24 (Vyvanse) Allergies Allergy/AdvReac Type Severity Reaction Status Date / Time No Known Allergies Allergy Verified 04/29/24 09:13 Review of Systems Review of Systems: CONSTITUTIONAL: Denies body aches, fever, chills, or sweats. EYES: Denies visual changes, redness, or discharge. ENT: Denies rhinorrhea, congestion, sore throat, or otalgia. CARDIOVASCULAR: Denies chest pain, palpitations, or edema. RESPIRATORY: Denies cough or dyspnea. GASTROINTESTINAL: Denies abdominal pain, nausea, vomiting, or diarrhea. GENITOURINARY: + dysuria, urgency, suprapubic cramping SKIN: Denies rash, itching, or wounds. MUSCULOSKELETAL: Denies back pain, joint pain, or myalgia. NEUROLOGIC: Denies headache, numbness, tingling, or weakness.+ vertigo PSYCH: Denies depression or anxiety. [facility] Past Medical History Medical History Chorioamnionitis In vitro fertilization Surrogate Post depression Urinary tract infection Vaginal delivery Surgical History Surgical History History of bilateral salpingectomy 06/14/22 Hx of appendectomy S/P laparoscopic surgery 06/14/22 Family History Family History Father High cholesterol Mother Hypotension Grandparent Chronic obstructive pulmonary disease Social History Social History Years smoked: 4 Smoking status: Former smoker Tobacco type: cigarettes Smoking end date: 08/11/09 Alcohol intake: never Substance use: never Substance use type: does not use Lack of Transportation: No Lack of Food: Never True Current Housing: I Have Housing Concerned About Future Housing: No Difficulty Paying Gas/Electric Bills: No Difficulty Paying for Meds: No Currently Unemployed: No Difficulty w/ Childcare or Family Care: No Living arrangements: with family Occupation/Education: occupation Gender identity (if verbalized by the patient): Female Sexual Orientation (if Verbalized by the Patient): Straight or Heterosexual Spiritual care concerns: No Comments At time of signature, I have reviewed and agree with nursing past medical, surgical, social and family history unless otherwise noted. Please see nursing chart for further information. There is no relevant family history pertinent to the presenting complaint Exam Narrative: GENERAL: Well-appearing, well-nourished, and in no acute distress. HEAD: Normocephalic, atraumatic. EYES: EOMI. PERRL. No nystagmus No redness or drainage. Conjunctivae normal. ENT: Mucous membranes pink and moist. Nares clear. No rhinorrhea. TMs normal bilaterally. NECK: Normal AROM. CHEST: No respiratory distress. Daniel
== END 2024-04-29 09:43 | disposition home or self-care (01) ==
PROVIDERS: Emergency Provider Nurse Practitioner; PCP Nurse Practitioner Family
DX: R30.0 Dysuria (principal); R39.15 Urgency of urination; R10.30 Lower abdominal pain, unspecified; R42 Dizziness and giddiness; Z87.891 Personal history of nicotine dependence
CPT/HCPCS: 87077; 87086; 87088; 87186; 99213; G0463

== ENCOUNTER 2024-11-26 08:17 | Outpatient (CLI) | payer OTHER, SELFPAY ==
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
--- OUTSIDE RECORDS SUMMARY | 2024-11-26 08:21 | XMS_ITS | Clinical Summary ---
Author Organization [facility] Address [address] [place] [address] Care Team Providers Care Hospital Supervisor Name Role Phone Tegan Pinto MD Primary Care Provider Un available Source Comments [facility],non-owned Affiliates and Associated Physician Practices is amultiple site organization consisting of ambulatory clinics and hospital sitesin [place], [place], [place] and [place]. This disclosure is being madepursuant to the Care Everywhere program and may not contain all information available regarding this patient. Last updated 18.[facility] Allergies No known active allergies Medications * Be aware that medications may not be up to date on this document. Alwaysverify current medications with the patient. levonorgestrel (MIRENA) 20 MCG/24HR IUDIndications: Encounter for insertion of Mirena IUD 1 Device by Intrauterine route as directed. 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 IUP (intrauterine ), incidental 03/07/2013 04/22/2013 Encounter for supervision of other normal 02/25/2013 07/19/2015 Overview (06/18/2015): Declined second trimester screen. Nausea and vomiting in pregn corrie prior to 22 weeks gestation 02/12/2013 02/25/2013 Nausea and vomiting in pregn corrie prior to 22 weeks gestation 02/12/2013 02/25/2013 Mucositis of cervix, vagina, or vulva 06/21/2011 04/22/2013 Overview (05/11/2015): Encounter for supervision of other normal 04/01/2011 09/24/2012 Overview (06/18/2015): Nausea/vomiting in 03/01/2011 09/24/2012 , supervision, normal, first 11/30/2009 02/10/2011 Immunizations Immunization Administration Dates Next Due FLU VACCINE TRI IIV3 SPLIT PF IM (FLUVIRIN) 05/11,04/30/2010 PNEUMOCOCCAL PPSV23 10/02/2013 TDAP (7yrs+) 07/13/2013,05/31/2010 Family History Medical History Relation Name Comments Other Mother low BP Arthritis Neg Hx Bleeding Disorders Neg Hx Cancer Neg Hx Clotting Disorder Neg Hx Diabetes Neg Hx Genetic/Metabolic Disease Neg Hx Heart Disease Neg Hx Kidney Disease Neg Hx Multiple Births Neg Hx Labor Neg Hx Sickle Cell Anemia Neg Hx Stroke Neg Hx Toxemia Neg Hx Tuberculosis Neg Hx Twins Neg Hx Relation Name Status Comments Mother Social History Tobacco Use Types Packs/Day Years Used Date Smoking Tobacco: Former Cigarettes Smokeless Tobacco: Former Quit: 06/17/2012 Tobacco Cessation:Ready to Q uit: Yes; Counseling Given: No Comments:1 pack per week Alcohol Use Standard Drinks/Week Comments Yes 0 (1 standard drink = 0.6 oz pur e alcohol) AUDIT-C Answer Date Recorded Q1: How often do you have a drink containing alc ohol? 2-4 times a month 08/09/2020 Average Number of Drinks Not on file 020 Frequency of Binge Drinking Not on file 07/13 Comments No Sex and Gender Information Value Date Recorded Sex Assigned at Not on file Legal Sex Female 8:15 AM APPLIANCE INSTALLER Gender Identity Not on file Sexual Orientation Not on file Last Filed Vital Signs Vital Sign Reading Time Taken Comments Blood Pressure 120/57 08/09/2020 10:14 AM APPLIANCE INSTALLER Pulse 86 08/09/2020 10:14 AM APPLIANCE INSTALLER Temperature 36.8 C (98.2 F) 08/09/2020 10:14 AM APPLIANCE INSTALLER Respiratory Rate 18 08/09/2020 10:14 AM APPLIANCE INSTALLER Oxygen Saturation 99% 08/09/2020 10:14 AM APPLIANCE INSTALLER Inhaled Oxygen Concentration - - Weight 72.6 kg (160 lb) 08/09/2020 10:14 AM APPLIANCE INSTALLER Height 165.1 cm (5' 5 ) 08/09/2020 10:14 AM APPLIANCE INSTALLER Body Mass Index 26.63 08/09/2020 10:14 AM APPLIANCE INSTALLER Plan of Treatment Health Maintenance Due Date Last Done Comments HEPATITIS B VACCINE (1 of 3 - 19+ 3-dose series) 12/12/2010 DTAP/TDAP/TD VACCINES (3 - Td or Tdap) 07/13/2023 07/13/2013, 05/31/2010 COVID-19 VACCINE ( season) 2024 DEPRESSION SCREENING 08/11/2024 INFLUENZA VACCINE (Season Ended) 2025 05/24/2011, 04/30/2010 ZOSTER VACCINE (1 of 2) 12/12/2041 PNEUMOCOCCAL VACCINE Aged Out 10/02/2013 No long er eligible based on patient's age to complete this topic HEPATITIS C SCREENING Completed 04/21/2015 HIV SCREENING Completed 04/21/2015, 02/08, 06/21/2011, Additional history exists HIB VACCINE Aged Out No longer eligi ble based on patient's age to complete this topic HPV VACCINE Aged Out No longer eligi ble based on patient's age to complete this topic MENINGOCOCCAL (Group B) VACCINE SHARED DECISION-MAKING Aged Out No longer eligible based on patient's age to complete this topic MENINGOCOCCAL GROUPS A/C/Y/W VACCINE Aged Out No longer eligible based on patient's age to complete this topic Procedures Procedure Name Priority Date/Time Associated Diagnosis Comments HEPATITIS SCREEN ACUTE Routine 04/21/2015 3:12 PM CDT Potential exposure to STD HIV-1 HIV-2 ANTIBODY Routine 04/21/2015 3:12 PM CDT Potential exposure to STD from Last 3 Months or Most Recently Relevant to Health Maintenance Results * HIV-1 HIV-2 ANTIBODY (04/21/2015 3:12 PM CDT) HIV-1 Antibody O.D. Ratio <1.00 <1.00 [facility] ACCOUNT BILL Comment:Index Value: Specime n reactivity relative to the negative cutoff. HIV-1/HIV-2 Non Reactive Non Reactive [facility] ACCOUNT BILL Blood specimen (specimen) BLOOD SPECIMEN / Unknown 04/21/2015 3:12 PM CDT 04/21/2015 5:16 PM CDT Narrative Resulting Agency Comment [facility] [address] [facility] [id number] Enid Silva LEGAL MANAGER-AEROSPACE TECHNICIAN LAB - CHEMISTRY ORDERABLE S Final Result Performing Organization Address City/State/[facility] Co de Phone Number [facility] ACCOUNT BILL [id number] [place] [address] * HEPATITIS SCREEN ACUTE (04/21/2015 3:12 PM CDT) Hepatitis A Virus Antibody IgM Negative Negative [facility] ACCOUNT BILL Hepatitis B Virus Surface Antigen Negative Negative [facility] ACCOUNT BILL Hepatitis B Core Virus Antibody IgM Negative Negative [facility] ACCOUNT BILL Hepatitis C Antibody 0.1 0.0 - 0.9 s/co ratio [facility] ACCOUNT BILL Comment: Negative: < 0.8 Indeterminate: 0.8 - 0.9 Positive: > 0.9 . In order to reduce the incidence of a false positive result, the CDC recommends that all s/co ratios between 1.0 and 10.9 be confirmed by a more specific supplemental or PCR testing. [facility] offers HCV Ab w/Reflex to Verification test #[id number]. Blood specimen (specimen) BLOOD SPECIMEN / Unknown 04/21/2015 3:12 PM CDT 04/21/2015 5:16 PM CDT Narrative Resulting Agency Comment [facility] [address] [facility] [id number] Enid Silva LEGAL MANAGER-AEROSPACE TECHNICIAN LAB - CHEMISTRY ORDERABLE S Final Result [facility] ACCOUNT BILL [address] [place] [address] from Last 3 Months or Most Recently Relevant to Health Maintenance [place] [address] [place] [id number] [facility] Advance Directives * Full Code (Latest Code Status on File) Date Activated Date Inactivated Comments 10/01/2013 6:44 AM 10/01/2013 5:22 PM * FULL RESUSCITATION Date Activated Date Inactivated Comments 10/16/2011 11:20 AM 10/18/2011 10:28 PM * Full Code Date Activated Date Inactivated Comments 05/28/2010 6:22 PM 06/02/2010 12:54 AM Care Teams Hospital Supervisor Relationship Specialty Start Date End Date Tegan Pinto MD PCP - General 06/19/12
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
--- OUTSIDE RECORDS SUMMARY | 2024-11-26 08:21 | XMS_ITS | Encounter Summary ---
Author Organization [facility] Address [address] [place] [address] Care Team Providers Care Shackler Name Role Phone Tegan Pinto MD Primary Care Provider Un available Encounter Details Date Type Department Care Team (Late st Contact Info) Description 08/10/2020 Telephone [facility] [address] [place] [address], [address] [place] [id number] Leelee Bucio, SCHOOL LUNCH MANAGER-TIMBER ROBBER [address] [place] [address] Social History Tobacco Use Types Packs/Day Years Used Date Smoking Tobacco: Former Cigarettes Smokeless Tobacco: Former Quit: 06/17/2012 Comments:1 pack per week Alcohol Use Standard [...] on file Legal Sex Female 8:15 AM MANAGER TITLE Gender Identity Not on file Sexual Orientation Not on file documented as of this encounter Functional Status * Is person deaf or have serious hearing difficulty? Answer Date of Assessment Author No 06/24/2016 7:38 AM MANAGER TITLE Letha Medina RN * Is person blind or have serious difficulty seeing? Answer Date of Assessment Author No 06/24/2016 7:38 AM Letha Izaguirre RN * Does person have serious difficulty walking/climbing stairs? Answer Date of Assessment Author No 06/24/2016 7:38 AM Letha Izaguirre RN * Does person have difficulty dressing/bathing? Answer Date of Assessment Author No 06/24/2016 7:38 AM Letha Izaguirre RN * Does person have difficulty doing errands alone? Answer Date of Assessment Author No 06/24/2016 7:38 AM Letha Izaguirre RN documented as of this encounter Mental Status * Does person have difficulty concentrating/remembering/making decisions? Answer Entry Date Author No 06/24/2016 7:38 AM Letha Izaguirre RN documented in this encounter Plan of Treatment Not on file documented as of this encounter Visit Diagnoses Not on filedocumented in this encounter Additional Health Concerns Infection Onset Date Last Indicated Resolved Time COVID-19 Under Investigation 08/09/2020 08/09/2020 08/10/2020 12:23 AM MANAGER TITLE COVID-19 Confirmed 08/09/2020 08/09/2020 1 4:35 AM MANAGER TITLE documented as of this encounter Care Teams Shackler Relationship Specialty Start Date End Date Tegan Pinto MD PCP - General 06/19/12 documented as of this encounter
--- OUTSIDE RECORDS SUMMARY | 2024-11-26 08:22 | XMS_ITS | Clinical Summary ---
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 Name Role Phone [facility] TE[facility], ROMAN-C, SUSAN Primary Care Provider [phone] Reason for Visit and Chief Complaint The Chief Complaint is: medication follow-up via telepsych Problems Includes: Problems addressed during this encounter and other active Problems Current Visit Onset Date Resolved Date Provider Maria Ines jama Status Attention Deficit Disorder Without Hyperactivity 03/28/2023 LUCAS JACINTO PMHNP Active Last Documented On 3 1:37PM ; [facility] Generalized Anxiety Disorder 03/28/2023 LUCAS JACINTO PMHNP Active Last Documented On 3 1:37PM ; [facility] Plan of Treatment Call [phone] or go to the nearest emergency room if suicidal/homicidal ideation or other serious concerns arise. Call office if any questions or concerns arise. Client voiced understanding and agreed to treatment plan. Follow-up appointment 1 month as directed. - Last Documented On 01/19/2024 10:55AM ; [facility] Assessments Includes: Assessments from this encounter Findings - [F90.0 - Attention-deficit hyperactivity disorder, predominantly inattentive type] Attention deficit disorder without hyperactivity - Last Documented On 01/19/2024 10:55AM ; [facility] - [F41.1 - Generalized anxiety disorder] Generalized anxiety disorder - Last Documented On 01/19/2024 10:55AM ; [facility] Medical Equipment - Implanted Devices Includes: Current Devices No Medical Equipment Recorded Medications Includes: Medications discussed during this encounter and other current Medications Current Medications (continue as prescribed) clonazePAM 1 MG Oral Tablet 01/30/2024 Provider: LUCAS JACINTO PMHNP Diagnosis: Generalized anxi ety disorder TAKE 1/2 TO 1 TABLET BY MOUT H EVERY DAY NEEDED FOR ANXIETY Last Documented On 4 8:58AM By Lucas Jcainto PMSANDRAP ; [facility] Vyvanse 50 MG Oral Capsule 01/20/2024 Provider: LUCAS BHAGAT Diagnosis: Attention-defici t hyperactivity disorder, combined type 1 capsule daily Last Documented On 4 4:42PM By Lucas GERMANP ; [facility] Vyvanse 30 MG Oral Capsule 12/23/2023 Provider: LUCAS JACINTO PMSANDRAP Diagnosis: Attention-defici t hyperactivity disorder, combined type 1 capsule daily Last Documented On 4 1:19PM By Lucas Jacinto PMSANDRAP ; [facility] Propranolol HCl 10 MG Oral Tablet 09/22/2023 Provider: LUCAS GERMANP Diagnosis: Generalized anxi ety disorder TAKE 1 TABLET BY MOUTH DAILY Last Documented On 4 11:11AM By Lucas Jacinto PMSANDRAP ; [facility] Concerta 36 MG Oral Tablet Extended Release 08/21/2023 Provider: LUCAS DOWLING Diagnosis: Attn-defct hyper activity disorder, predom inattentive type One tablet daily Last Documented On 4 4:47PM By Lucas Jacinto SANDRAP ; [facility] Concerta 36 MG Oral Tablet Extended Release 05/20/2023 Provider: LUCAS GERMANP Diagnosis: Last Documented On 06/20/2023 8:02AM By Dayana SURESH ; [facility] Escitalopram Oxalate 10 MG Oral Tablet 03/12/2023 Pr ovider: VERENA ALEX MD Diagnosis: Last Documented On 03/28/2023 1:26PM By Awilda SURESH ; [facility] Past Medications on file busPIRone HCl 15 MG Oral Tablet 08/12/2023 - 12/10/2023 Provider: LUCAS JACINTO PMSANDRAP Diagnosis: Generalized anxi ety disorder One tablet three times a day Last Documented On 4 1:24PM By Lucas GERMANP ; [facility] Venlafaxine HCl ER 37.5 MG Oral Capsule Extended Release 24 Hour 07/15/2023 - 11/12/2023 Provider: LUCAS BHAGAT Diagnosis: Generalized anxi ety disorder TAKE 1 CAPSULE BY MOUTH EVERY MORNING Last Documented On 3 8:33AM By Lucas BHAGAT ; [facility] clonazePAM 0.5 MG Oral Tablet 05/30/2023 - 06/09/2023 Provider: LUCAS BHAGAT Diagnosis: Generalized anxi ety disorder One tablet daily as needed for anxiety Last Documented On 3 11:19AM By Lucas BHAGAT ; [facility] Concerta 36 MG Oral Tablet Extended Release 05/20/2023 - 06/19/2023 Provider: LUCAS BHAGAT Diagnosis: Attn-defct hyper activity disorder, predom inattentive type One tablet daily Last Documented On 3 8:57AM By Lucas BHAGAT ; [facility] Medications Administered Includes: Administered Medications from this encounter No Administered Medications Recorded Results Includes: Results discussed during this encounter No Results Recorded For Specified Dates History of Present Illness Includes: History of Present Illness from this encounter HPI JENNA RENTERIA is a 33 year old female. - Allergy list reviewed - Past medical history reviewed - Problem list reviewed - Medication reconciliation performed - Medication list reviewed - Family history reviewed - Surgical history reviewed Depression on a scale of 0-10 with 10 being the worst: 2 Anxiety on a scale of 0-10 with 10 being the worst: 2 Jenna was on time today for telehealth visit. Alert and oriented times 4, anxious, cooperative, and dressed appropriately for the weather. She reports a mild amount of anxiety and depression today, mood is better per client. She reports sleeping about 10 hours at night, denies any nightmares or flashbacks to past trauma. She is eating 2 meals a day, appetite is good. . Client reports everything is going much better since last visit. She feels like the Vyvanse 30 mg po qd is not lasting throughout the day and wearing off about 2pm. Client starting on her own taking Vyvanse 30 mg ( 2 capsules) po qd and this helped per client. Discussed with client to never take more the prescribed and to always talk with provider before doubling dose, voiced verbal understanding. Discussed increasing to Vyvanse 50 mg po qd , but take only as directed , voiced verbal understanding. She denies any side effects or adverse reaction to medications, will continue as directed. Patient consent for virtual visit obtained on ( ). This visit was conducted with use of: audio and visual Originating site: Home Distant Site: Patient's Home Total visit time: 30 minutes [id number] 30 min Social History Description Last Updated Tobacco non-user 01/16/2024 Last Documented On 4 10:55AM ; [facility] Smoking Status Unknown Procedures and Surgical History Includes: Procedures from this encounter Procedures Code Diagnosis Performing Provider Service Location Service Date CLINIC VISIT (VIA [employer]) T1015 Attention-deficit hyperactivity disorder, combined type LUCAS E MOUSER PMP [facility] 01/16/2024 Last Documented On 4 12:29PM ; [facility] PSYCHOTHERAPY 30 MIN W/ PATIENT-DONE WITH EM CO ([employer]IA [employer]) [address] Attention-deficit hyperactivity disorder, combined type [facility] 01/16/2024 Last Documented On 4 12:29PM ; [facility] plan of care reviewed and agreed to by t he patient Last Documented On 4 9:51AM ; [facility] use of tobacco assessment performed 1000F Last Documented On 4 9:51AM ; [facility] no influenza immunization Last Documented On 4 9:51AM ; [facility] review of medications documented 1160F Last Documented On 4 9:51AM ; [facility] no history of pneumococcal vaccine Last Documented On 4 9:51AM ; [facility] assessment of suicide risk performed -No t suicidal Last Documented On 4 9:51AM ; [facility] encouragement to exercise Last Documented On 4 9:51AM ; [facility] Clinical summary provided to patient Last Documented On 4 9:51AM ; [facility] Surgical History Last Updated History of tubal ligation 03/28/2023 Last Documented On 4 9:51AM ; [facility] Medical History Includes: Medical History addressed during this encounter Description Last Updated Surgery APENDECOTMY 03/28/2023 Last Documented On 4 9:51AM ; [facility] Depression 03/28/2023 Last Documented On 4 9:51AM ; [facility] Family History Includes: Family History addressed during this encounter Description Last Updated Family history of bleeding problems 03/11 Last Documented On 4 9:51AM ; [facility] Family history of heart disease 03/28/20 23 Last Documented On 4 9:51AM ; [facility] Maternal grandfather is 023 Last Documented On 4 9:51AM ; [facility] Paternal grandfather is 023 Last Documented On 4 9:51AM ; [facility] Review of Systems Includes: Review of Systems from this encounter Gastrointestinal: Normal appetite. Psychological: Not feeling restless and no feelings of hopelessness. Not feeling helpless, no decreased functioning ability, no increase in energy, and no thoughts of self-harm. No low self-esteem, not feeling guilty, and no compulsion. No feelings of grandeur, no racing thoughts, and no excessive crying. Does not feel worthless. All systems were reviewed and are negative at this time unless otherwise noted. Mental Status Includes: Mental Status from this encounter Description Oriented to time, place, and person No hallucinations The memory was unimpaired Thought processes were not i mpaired Evaluation of connectedness showed no deficiency The attention demonstrated n o abnormalities No thoughts of self-harm No compulsion No preoccupation with religi on No hallucinations Not hearing voices when no o ne is talking No visual hallucinations No paranoid ideations No racing thoughts Executive functions were not decreased Awareness of time was not de creased Sequencing skills were not i mpaired Problem-solving skills were not impaired Initiation skills were not i mpaired Planning skills were not imp aired Organizational skills were n ot impaired Judgement was not impaired The thought content revealed no impairment No delusions No suicidal ideation No suicidal plans No suicidal intent No homicidal thoughts No homicidal ideations No homicidal plans No homicidal intent Functional Status Includes: Functional Status from this encounter No Functional Status Recorded Physical Exam Includes: Physical Exam from this encounter Allergies Includes: Active Allergies No Known Allergies Encounters Encounter Provider Location Date Check-In Time Check-Out Time Diagnosis TELEHEALTH LUCAS JACINTO PMHNP [facility] 01/16/20 24 9:49AM 11:59PM Generalized Anxiety Disorder,Attentio n Deficit Disorder Without Hyperactivity Insurance Includes: Active Insurance Policies Plan Name Member ID Group # Subscriber Relationship Effect sonia Dates 1 - [facility] [id number] JENNA RENTERIA Self Clinical Notes Includes: Clinical Notes from this encounter * Progress note Date Encounter Last Documented by 01/16/2024 TELEHEALTH Last documented on 01/19/2024; 10:55 AM, LUCAS JACINTO PMHNP; [facility] Active Problems & Conditions - F90.0 - Attention Deficit Disorder Without Hyperactivity - F41.1 - Generalized Anxiety Disorder Chief Complaint The Chief Complaint is: Medication follow-up via telepsych. Reason For Visit Telehealth visit for medication follow-up History of Present Illness JENNA RENTERIA is a 33 year old female. - Allergy list reviewed - Past medical history reviewed - Problem list reviewed - Medication reconciliation performed - Medication list reviewed - Family history reviewed - Surgical history reviewed Depression on a scale of 0-10 with 10 being the worst: 2 Anxiety on a scale of 0-10 with 10 being the worst: 2 Jenna was on time today for telehealth visit. Alert and oriented times 4, anxious, cooperative, and dressed appropriately for the weather. She reports a mild amount of anxiety and depression today, mood is better per client. She reports sleeping about 10 hours at night, denies any nightmares or flashbacks to past trauma. She is eating 2 meals a day, appetite is good. . Client reports everything is going much better since last visit. She feels like the Vyvanse 30 mg po qd is not lasting throughout the day and wearing off about 2pm. Client starting on her own taking Vyvanse 30 mg ( 2 capsules) po qd and this helped per client. Discussed with client to never take more the prescribed and to always talk with provider before doubling dose, voiced verbal understanding. Discussed increasing to Vyvanse 50 mg po qd , but take only as directed , voiced verbal understanding. She denies any side effects or adverse reaction to medications, will continue as directed. Patient consent for virtual visit obtained on ( ). This visit was conducted with use of: audio and visual Originating site: Home Distant Site: Patient's Home Total visit time: 30 minutes 1022-1113 30 min User Defined 4 Past Psychiatric Hospitalization: denies Counseling: a few years ago 2020 Psychiatric medications taken in past: Wellbutrin sr Zoloft Hydroxyzine Current Medication - clonazePAM 1 MG Oral Tablet TAKE 1/2 TO 1 TABLET BY MOUTH EVERY DAY NEEDED FOR ANXIETY, 30 days, 0 refills - Concerta 36 MG Oral Tablet Extended Release One tablet daily 30 days, 0 refills - Concerta 36 MG Oral Tablet Extended Release One tablet daily, 30 days, 0 refills - Escitalopram Oxalate 10 MG Oral Tablet 30 days, 0 refills - Propranolol HCl 10 MG Oral Tablet TAKE 1 TABLET BY MOUTH DAILY, 90 days, 0 refills - Vyvanse 30 MG Oral Capsule 1 capsule daily, 30 days, 0 refills Past Medical/Surgical History Reported: Surgery APENDECOTMY. Medical: Depression. Surgical: - Tubal ligation Previous Therapy - Did not receive dose of pneumococcal vaccine Social History Tobacco use: Tobacco non-user. Allergies - No Known Allergies Family History Maternal grandfather is Paternal grandfather is Heart disease Bleeding problems Review Of Systems Gastrointestinal: Normal appetite. Psychological: Not feeling restless and no feelings of hopelessness. Not feeling helpless, no decreased functioning ability, no increase in energy, and no thoughts of self-harm. No low self-esteem, not feeling guilty, and no compulsion. No feelings of grandeur, no racing thoughts, and no excessive crying. Does not feel worthless. All systems were reviewed and are negative at this time unless otherwise noted. Physical Findings Psychological: - No preoccupation with druze. - No hallucinations. - Not hearing voices when no one is talking. - No visual hallucinations. - No paranoid ideations. General Appearance: - Well-appearing. - Awake. - Alert. - Active. - Able to follow command. Neurological: - Oriented to time, place, and person. - No hallucinations. - Memory was unimpaired. - Executive functions were not decreased. - Awareness of time was not decreased. - Sequencing skills were not impaired. - Problem-solving skills were not impaired. - Initiation skills were not impaired. - Planning skills were not impaired. - Organizational skills were not impaired. - Judgement was not impaired. Speech: - Normal. Psychiatric: - Mood was anxious. - Mood was depressed. - Mood was not elevated. - Mood was appropriate to the affect. - Mood was not irritable. Demonstrated Behavior: - Behavior demonstrated no psychomotor abnormalities. - Normal eye contact. Attitude: - Not abnormal. - Not distractible. - Not inattentive. - Not indifferent. - Cooperative. - Not hostile. Affect: - Incongruent with the mood. - Not inappropriate. - Not labile. - Not blunted. - Not flat. - Not restricted. - Not constricted. - Not tearful. - Showed no irritability. - Not agitated. Thought Processes: - Not impaired. - Evaluation of connectedness showed no deficiency. - Attention demonstrated no abnormalities. Thought Content: - Revealed no impairment. - No delusions. - No suicidal ideation. - No suicidal plans. - No suicidal intent. - No homicidal thoughts. - No homicidal ideations. - No homicidal plans. - No homicidal intent. Neurovegetative Assessment: - Dangerousness assessment: no suicide risk. Past Medical: - No repetitive self injurious behavior. - No access to weapons / guns in home. Assessment - [F90.0 - Attention-deficit hyperactivity disorder, predominantly inattentive type] Attention deficit disorder without hyperactivity - [F41.1 - Generalized anxiety disorder] Generalized anxiety disorder Therapy - Encouragement to exercise. - Assessment of suicide risk performed -Not suicidal - Clinical summary provided to patient. - Plan of care reviewed and agreed to by the patient. Counseling/Education Client educated on medications and diagnosis, discussed the risks, benefits and side effects of medications. We discussed that the benefits far outweigh the risks of medication plan. Plan StartCited - Attention-deficit hyperactivity disorder, combined type Vyvanse 50 MG capsule 1 capsule daily, 30 days, 0 refills Vyvanse 50 MG capsule 1 capsule daily, 30 days, 0 refills EndCited Call [phone] or go to the nearest emergency room if suicidal/homicidal ideation or other serious concerns arise. Call office if any questions or concerns arise. Client voiced understanding and agreed to treatment plan. Follow-up appointment 1 month as directed. Practice Management Use of tobacco assessment performed Review of medications documented; No influenza immunization. Health Reminders - Assess Tobacco Use satisfied 01/16/2024. - Follow up plan for Depression Screening satisfied 01/16/2024.
--- OUTSIDE RECORDS SUMMARY | 2024-11-26 08:22 | XMS_ITS ---
Author Organization [facility] Address [address] [place] [address] Phone Care Team Providers Care Specimen Processor Name Role Phone BORDEN MAINTENANCE MECHANIC HELPER, RN FIELD-C, SUSAN Primary Care Provider [phone] Problems Includes: Active, inactive, and resolved Problems All Visits Onset Date Resolved Date Provider Condition S tatus Attention Deficit Disorder Without Hyperactivity 03/28/2023 LUCAS E MOUSER PMHNP Active Last Documented On 3 1:37PM ; [facility] Generalized Anxiety Disorder 03/28/2023 LUCAS E MOUSER PMHNP Active Last Documented On 3 1:37PM ; [facility] Plan of Treatment Education and Decision Aids were provided during visit for: Patient education about adve rse reactions to medication Last Documented On 3 1:19PM ; [facility] Reviewed side effects and Ri sks/Benefits analysis Last Documented On 3 1:19PM ; [facility] Assessments Includes: Assessments for all patient encounters Findings Encounter Date Attention deficit disorder w ithout hyperactivity TELEHEALTH with LUCAS E MOUSER PMHNP 01/16/2024 Last Documented On 4 10:55AM ; [facility] Generalized anxiety disorder TELEHEALTH with ELL EN E MOUSER PMHNP 01/16/2024 Last Documented On 4 10:55AM ; [facility] Attention deficit disorder w ithout hyperactivity TELEHEALTH with LUCAS E MOUSER PMHNP 10/24/2023 Last Documented On 4 9:17AM ; [facility] Generalized anxiety disorder TELEHEALTH with ELL EN E MOUSER PMHNP 10/24/2023 Last Documented On 4 9:17AM ; [facility] Attention deficit disorder w ithout hyperactivity TELEHEALTH with LUCAS E MOUSER PMHNP 09/19/2023 Last Documented On 4 12:08PM ; [facility] Generalized anxiety disorder TELEHEALTH with ELL EN E MOUSER PMHNP 09/19/2023 Last Documented On 4 12:08PM ; [facility] Attention deficit disorder w ithout hyperactivity TELEHEALTH with LUACS E MOUSER PMHNP 08/01/2023 Last Documented On 4 1:26PM ; [facility] Generalized anxiety disorder TELEHEALTH with ELL EN E MOUSER PMHNP 08/01/2023 Last Documented On 4 1:26PM ; [facility] Attention deficit disorder w ithout hyperactivity TELEHEALTH with LUCAS E MOUSER PMHNP 05/30/2023 Last Documented On 3 8:50AM ; [facility] Generalized anxiety disorder TELEHEALTH with ELL EN E MOUSER PMHNP 05/30/2023 Last Documented On 3 8:50AM ; [facility] Attention deficit disorder w ithout hyperactivity FOLLOW UP with LUCAS E MOUSER PMHNP 05/09/2023 Last Documented On 3 4:38PM ; [facility] Generalized anxiety disorder FOLLOW UP with SHELBY N E MOUSER PMHNP 05/09/2023 Last Documented On 3 4:38PM ; [facility] [F41.1 - Generalized anxiety disorder] generalized anxiety disorder PSYCH NEW PATIENT EXAM 19 YEARS AND OLDER with LUCAS E MOUSER PMHNP 03/28/2023 Last Documented On 3 11:35PM ; [facility] Attention deficit disorder w ithout hyperactivity PSYCH NEW PATIENT EXAM 19 YEARS AND OLDER with LUCAS E MOUSER PMHNP 03/28/2023 Last Documented On 3 11:35PM ; [facility] Instructions Includes: Instructions for all patient encounters Education and Decision Aids were provided during visit for: Patient education about adve rse reactions to medication Last Documented On 3 1:19PM ; [facility] Reviewed side effects and Ri sks/Benefits analysis Last Documented On 3 1:19PM ; [facility] Medical Equipment - Implanted Devices Includes: Current and historical Devices No Medical Equipment Recorded Medications Includes: Current and historical Medications Current Medications (continue as prescribed) clonazePAM 1 MG Oral Tablet 01/30/2024 Provider: LUCAS BHAGAT Diagnosis: Generalized anxi ety disorder TAKE 1/2 TO 1 TABLET BY MOUT H EVERY DAY NEEDED FOR ANXIETY Last Documented On 4 8:58AM By Lucas BHAGAT ; [facility] Vyvanse 50 MG Oral Capsule 01/20/2024 Provider: LUCAS BHAGAT Diagnosis: Attention-defici t hyperactivity disorder, combined type 1 capsule daily Last Documented On 4 4:42PM By Lucas BHAGAT ; [facility] Vyvanse 30 MG Oral Capsule 12/23/2023 Provider: LUCAS BHAGAT Diagnosis: Attention-defici t hyperactivity disorder, combined type 1 capsule daily Last Documented On 4 1:19PM By Lucas BHAGAT ; [facility] Propranolol HCl 10 MG Oral Tablet 09/22/2023 Provider: LUCAS BHAGAT Diagnosis: Generalized anxi ety disorder TAKE 1 TABLET BY MOUTH DAILY Last Documented On 4 11:11AM By Lucas BHAGAT ; [facility] Concerta 36 MG Oral Tablet Extended Release 08/21/2023 Provider: LUCAS DOWLING Diagnosis: Attn-defct hyper activity disorder, predom inattentive type One tablet daily Last Documented On 4 4:47PM By Lucas BHAGAT ; [facility] Concerta 36 MG Oral Tablet Extended Release 05/20/2023 Provider: LUCAS BHAGAT Diagnosis: Last Documented On 06/20/2023 8:02AM By Dayana SURESH ; [facility] Escitalopram Oxalate 10 MG Oral Tablet 03/12/2023 Pr ovider: VERENA ALEX MD Diagnosis: Last Documented On 03/28/2023 1:26PM By Awilda SURESH ; [facility] Past Medications on file Vyvanse 50 MG Oral Capsule 01/19/2024 - 01/20/2024 Provider: LUCAS BHAGAT Diagnosis: Attention-defici t hyperactivity disorder, combined type 1 capsule daily Last Documented On 4 4:31PM By Lucas Jacinto PMHNP ; [facility] Vyvanse 50 MG Oral Capsule 01/16/2024 - 01/16/2024 Provider: LUCAS JACINTO PMHNP Diagnosis: Attention-defici t hyperactivity disorder, combined type 1 capsule daily Last Documented On 4 9:07AM By Lucas Jacinto PMHNP ; [facility] clonazePAM 1 MG Oral Tablet 01/01/2024 - 01/30/2024 Provider: LUCAS JACINTO PMHNP Diagnosis: Generalized anxi ety disorder TAKE 1/2 TO 1 TABLET BY MOUT H EVERY DAY NEEDED FOR ANXIETY Last Documented On 4 8:52AM By Lucas Jacinto PMHNP ; [facility] clonazePAM 1 MG Oral Tablet 12/05/2023 - 01/01/2024 Provider: LUCAS JACINTO PMHNP Diagnosis: Generalized anxi ety disorder TAKE 1/2 TO 1 TABLET BY MOUT H EVERY DAY NEEDED FOR ANXIETY Last Documented On 4 3:43PM By Lucas Jacinto PMHNP ; [facility] Vyvanse 30 MG Oral Capsule 11/20/2023 - 12/23/2023 Provider: LUCAS JACINTO PMHNP Diagnosis: Attention-defici t hyperactivity disorder, combined type 1 capsule daily Last Documented On 4 1:13PM By Lucas Jacinto PMHNP ; [facility] clonazePAM 1 MG Oral Tablet 11/06/2023 - 12/05/2023 Provider: LUCAS JACINTO PMHNP Diagnosis: Generalized anxi ety disorder TAKE 1/2 TO 1 TABLET BY MOUT H EVERY DAY NEEDED FOR ANXIETY Last Documented On 4 3:35PM By Lucas Jacinto PMHNP ; [facility] Vyvanse 30 MG Oral Capsule 10/24/2023 - 11/20/2023 Provider: LUCAS JACINTO PMHNP Diagnosis: Attention-defici t hyperactivity disorder, combined type 1 capsule daily Last Documented On 4 10:20AM By Lucas Jacinto PMHNP ; [facility] clonazePAM 1 MG Oral Tablet 10/09/2023 - 11/06/2023 Provider: LUCAS JACINTO SANDRA Diagnosis: Generalized anxi ety disorder TAKE 1/2 TO 1 TABLET BY SHANIQUE Pandya EVERY DAY NEEDED FOR ANXIETY Last Documented On 4 3:06PM By Lucas Jacinto PMHNP ; [facility] Concerta 36 MG Oral Tablet Extended Release 09/29/2023 - 10/27/2023 Provider: LUCAS JACINTO SANDRA Diagnosis: Attn-defct hyper activity disorder, predom inattentive type One tablet daily Last Documented On 4 9:14AM By Lucas Jacinto PMHNP ; [facility] Propranolol HCl 10 MG Oral Tablet 09/22/2023 - 09/22/2023 Provider: LUCAS JACINTO PMSANDRAP Diagnosis: Generalized anxi ety disorder One tablet daily Last Documented On 4 11:09AM By Lucas Jacinto HNP ; [facility] clonazePAM 1 MG Oral Tablet 09/01/2023 - 10/09/2023 Provider: LUCAS JACINTO SANDRA Diagnosis: Generalized anxi ety disorder 1/2-1 tablet as needed once a day for anxiety Last Documented On 4 10:14PM By Lucas Jacinto HNP ; [facility] busPIRone HCl 15 MG Oral Tablet 08/12/2023 - 12/10/2023 Provider: LUCAS JACINTO PMSANDRA Diagnosis: Generalized anxi ety disorder One tablet three times a day Last Documented On 4 1:24PM By Lucas Jacinto HNP ; [facility] clonazePAM 1 MG Oral Tablet 08/01/2023 - 09/01/2023 Provider: LUCAS JACINTO PMHN Diagnosis: Generalized anxi ety disorder 1/2-1 tablet as needed once a day for anxiety Last Documented On 4 12:08PM By Lucas Jacinto SANDRAP ; [facility] Concerta 36 MG Oral Tablet Extended Release 07/21/2023 - 08/21/2023 Provider: LUCAS JACINTO PMHNP Diagnosis: Attn-defct hyper activity disorder, predom inattentive type One tablet daily Last Documented On 4 4:31PM By Lucas Jacinto PMHNP ; [facility] Venlafaxine HCl ER 37.5 MG Oral Capsule Extended Release 24 Hour 07/15/2023 - 11/12/2023 Provider: LUCAS JACINTO PMSANDRAP Diagnosis: Generalized anxi ety disorder TAKE 1 CAPSULE BY MOUTH EVERY MORNING Last Documented On 3 8:33AM By Lucas Jacinto PMHNP ; [facility] Concerta 36 MG Oral Tablet Extended Release 06/20/2023 - 07/21/2023 Provider: LUCAS JACINTO PMHNP Diagnosis: Attn-defct hyper activity disorder, predom inattentive type One tablet daily Last Documented On 3 9:22AM By Lucas Jacinto PMHNP ; [facility] clonazePAM 0.5 MG Oral Tablet 05/30/2023 - 06/09/2023 Provider: LUCAS JACINTO PMSANDRAP Diagnosis: Generalized anxi ety disorder One tablet daily as needed for anxiety Last Documented On 3 11:19AM By Lucas Jacinto PMHNP ; [facility] Concerta 36 MG Oral Tablet Extended Release 05/20/2023 - 06/19/2023 Provider: LUCAS JACINTO PMHNP Diagnosis: Attn-defct hyper activity disorder, predom inattentive type One tablet daily Last Documented On 3 8:57AM By Lucas Jacinto PMHNP ; [facility] clonazePAM 0.5 MG Oral Tablet 05/20/2023 - 05/30/2023 Provider: LUCAS JACINTO PMHNP Diagnosis: Generalized anxi ety disorder One tablet daily as needed for anxiety Last Documented On 3 11:13AM By Lucas Jacinto PMHNP ; [facility] Effexor XR 37.5 MG Oral Capsule Extended Release 24 Hour 05/09/2023 - 07/15/2023 Provider: LUCAS JACINTO PMHNP Diagnosis: Generalized anxi ety disorder 1 Capsule every morning Last Documented On 3 8:30AM By Lucas Jacinto PMHNP ; [facility] clonazePAM 0.5 MG Oral Tablet 04/21/2023 - 05/20/2023 Provider: LUCAS JACINTO PMHNP Diagnosis: Generalized anxi ety disorder One tablet daily as needed for anxiety Last Documented On 3 9:26AM By Lucas Jacinto PMHNP ; [facility] Lexapro 10 MG Oral Tablet 04/21/2023 - 05/09/2023 Provider: LUCAS JACINTO PMHNP Diagnosis: Generalized anxi ety disorder 1 1/2 tablets by mouth daily Last Documented On 05/09/2023 2:27PM By Pat SURESH ; [facility] busPIRone HCl 15 MG Oral Tablet 04/21/2023 - 08/12/2023 Provider: LUCAS JACINTO PMHNP Diagnosis: Generalized anxi ety disorder One tablet three times a day Last Documented On 4 1:24PM By Lucas Jacinto PMHNP ; [facility] Concerta 27 MG Oral Tablet Extended Release 04/21/2023 - 05/20/2023 Provider: LUCAS JACINTO PMHNP Diagnosis: Attn-defct hyper activity disorder, predom inattentive type One tablet daily Last Documented On 3 8:55AM By Lucas Jacinto PMHNP ; [facility] Lexapro 10 MG Oral Tablet 04/17/2023 - 04/21/2023 Provider: LUCAS JACINTO PMHNP Diagnosis: Generalized anxi ety disorder 1 1/2 tablets by mouth daily Last Documented On 3 8:23AM By Lucas Jacinto PMHNP ; [facility] busPIRone HCl 15 MG Oral Tablet 03/28/2023 - 04/21/2023 Provider: LUCAS JACINTO PMHNP Diagnosis: Generalized anxi ety disorder One tablet three times a day Last Documented On 3 8:23AM By Lucas Jacinto PMHNP ; [facility] Concerta 27 MG Oral Tablet Extended Release 03/21/2023 - 05/30/2023 Provider: VERENA ALEX MD Diagnosis: Last Documented On 05/30/2023 8:58AM By Dayana SURESH ; [facility] busPIRone HCl 15 MG Oral Tablet 03/21/2023 - Provider: VERENA ALEX MD Diagnosis: Last Documented On 05/30/2023 8:58AM By Dayana SURESH ; [facility] busPIRone HCl 15 MG Oral Tablet 03/21/2023 - Provider: VERENA ALEX MD Diagnosis: Last Documented On 05/30/2023 8:58AM By Dayana SURESH ; [facility] clonazePAM 0.5 MG Oral Tablet 03/21/2023 - 01/01/2024 Provider: VERENA ALEX MD Diagnosis: Last Documented On 01/01/2024 2:11PM By Belinda SURESH ; [facility] Medications Administered Includes: Administered Medications in patient's chart No Administered Medications Recorded Results Includes: Results from 11/27/2023 through 11/26/2024 No Results Recorded For Specified Dates History of Present Illness History of Present Illness not supported for this document type No History of Present Illness Recorded Social History Description Last Updated Tobacco non-user 01/16/2024 Last Documented On 4 10:55AM ; [facility] Alcohol SOCAIL 03/28/2023 Last Documented On 3 11:35PM ; [facility] No tobacco use 03/28/2023 Last Documented On 3 11:35PM ; [facility] Not using drugs 03/28/2023 Last Documented On 3 11:35PM ; [facility] No family problems 03/28/2023 Last Documented On 3 11:35PM ; [facility] No recent emotional stress 03/28/2023 Last Documented On 3 11:35PM ; [facility] Current nonsmoker 03/28/2023 Last Documented On 3 11:35PM ; [facility] Currently not in school 03/28/2023 Last Documented On 3 11:35PM ; [facility] Daily coffee consumption 03/28/2023 Last Documented On 3 11:35PM ; [facility] Lives with parents 03/28/2023 Last Documented On 3 11:35PM ; [facility] 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 Last Documented On 3 11:35PM ; [facility] Single 03/28/2023 Last Documented On 3 11:35PM ; [facility] Smoking Status Unknown Procedures and Surgical History Includes: Procedures from 11/27/2023 through 11/26/2024 Procedures Code Diagnosis Performing Provider Service Location Service Date PSYCHOTHERAPY 30 MIN W/ PATIENT-DONE WITH EM CO ([facility] [employer]) [id number] Attention-deficit hyperactivity disorder, combined type LUCAS E MOUSER PMHNP [facility] 01/16/2024 Last Documented On 4 12:29PM ; [facility] [employer] [place] [id number] Attention-deficit hyperactivity disorder, combined type LUCAS E MOUSER PMHNP [facility] 01/16/2024 Last Documented On 4 12:29PM ; [facility] Surgical History Last Updated History of tubal ligation 03/28/2023 Last Documented On 3 11:35PM ; [facility] Medical History Includes: Medical History in patient's chart Description Last Updated Surgery APENDECOTMY 03/28/2023 Last Documented On 3 11:35PM ; [facility] Depression 03/28/2023 Last Documented On 3 11:35PM ; [facility] Family History Includes: Family History in patient's chart Description Last Updated Family history of bleeding problems 03/11 Last Documented On 3 11:35PM ; [facility] Family history of heart disease 03/28/20 23 Last Documented On 3 11:35PM ; [facility] Maternal grandfather is 023 Last Documented On 3 11:35PM ; [facility] Paternal grandfather is 023 Last Documented On 3 11:35PM ; [facility] Review of Systems Review of Systems not supported for this document type No Review of Systems Recorded Mental Status No Mental Status Recorded Functional Status No Functional Status Recorded Physical Exam Physical Exam not supported for this document type No Physical Exam Recorded Allergies Includes: Active, inactive, and resolved Allergies No Known Allergies Encounters Includes: Encounters from 11/27/2023 through 11/26/2024 Encounter Provider Location Date Check-In Time Check-Out Time Diagnosis RX ISSUE/REFILL LUCAS JACINTO PMHNP 01/20/20 24 05/09/2023 4:02PM 05/30/2023 11:59PM TELEHEALTH LUCAS JACINTO PMHNP [facility] 01/16/20 24 05/09/2023 9:49AM 05/30/2023 11:59PM Generalized Anxiety Disorder,Attenti on Deficit Disorder Without Hyperactivity Insurance Includes: Active Insurance Policies Plan Name Member ID Group # Subscriber Relationship Effect sonia Dates 1 - [facility] [id number] JENNA RENTERIA Self Clinical Notes Includes: Signed Clinical Notes starting from 08/30/2022 * Progress note Date Encounter Last Documented by 01/20/2024 RX ISSUE/REFILL Last documented on 01/20/2024; 4:34 PM, LUCAS JACINTO PMHNP; [facility] Active Problems & Conditions - F90.0 - Attention Deficit Disorder Without Hyperactivity - F41.1 - Generalized Anxiety Disorder Chief Complaint Phone Call - Chief Concern: reason for call:PT CALLS IN TODAY STATING THAT THE NEXT TWO DAYS ARE GOING TO BE SWAMPED AT WORK AND WONT BE ABLE TO GET HER RX VYVANSE SHE IS WORRIED THAT THERE IS GOING TO BE ISSUES WHEN IT IS TIME TO PICK THE MED ON . SHE IS ASKING IF YOU CAN AUTHORIZE THIS MEDICATION TODAY OR TOMORROW PLEASE ADVISE pt phone # for return call:[phone] date/initials:01-20-24 [facility]. History of Present Illness JENNA RENTERIA is a 33 year old female. Pharmacy name:~location:[facility]. Current Medication - clonazePAM 1 MG Oral [...] 1 capsule daily, 30 days, 0 refills - Vyvanse 50 MG Oral Capsule 1 capsule daily, 30 days, 0 refills Past Medical/Surgical History Reported: Surgery APENDECOTMY. Medical: Depression. Surgical: - Tubal ligation Allergies - No Known Allergies Family History Maternal grandfather is Paternal grandfather is Heart disease Bleeding problems Plan StartCited - Attention-deficit hyperactivity disorder, combined type Vyvanse 50 MG capsule 1 capsule daily, 30 days, 0 refills EndCited * Progress note Date Encounter Last Documented by 01/16/2024 TELEHEALTH Last documented on 01/19/2024; 10:55 AM, LUCAS JACINTO PMHNP; [facility] Active Problems & Conditions - F90.0 - [...] Patient's Home Total visit time: 30 minutes [id number] 30 min User Defined 4 Past Psychiatric [...] Physical Findings Psychological: - No preoccupation with sikh. - No hallucinations. - Not hearing voices [...] daily, 30 days, 0 refills EndCited Call [phone] or go to the nearest emergency room [...]
--- OUTSIDE RECORDS SUMMARY | 2024-11-26 08:22 | XMS_ITS | Clinical Summary ---
Author Organization [facility] Address [address] [place] [address] Phone Care Team Providers Care Watch Adjuster Name Role Phone BORDEN INVESTMENT EXECUTIVE, ROMAN-C, SUSAN Primary Care Provider + [phone] Reason for Visit and Chief Complaint The Chief Complaint is: medication follow-up via telepsych Problems Includes: Problems addressed during this encounter and other active Problems Current Visit Onset Date Resolved Date Provider Maria Ines jama Status Attention Deficit Disorder Without Hyperactivity 03/28/2023 LUCAS JACINTO PMHNP Active Last Documented On 3 1:37PM ; [facility] Generalized Anxiety Disorder 03/28/2023 LUCAS Chapman MOUSER PMHNP Active Last Documented On 3 1:37PM ; [facility] Plan of Treatment Call [phone] or go to the nearest emergency room if suicidal/homicidal ideation or other serious concerns arise. Call office if any questions or concerns arise. Client voiced understanding and agreed to treatment plan. Follow-up appointment 1 month as directed. - Last Documented On 10/27/2023 9:17AM ; [facility] Assessments Includes: Assessments from this encounter Findings - [F90.0 - Attention-deficit hyperactivity disorder, predominantly inattentive type] Attention deficit disorder without hyperactivity - Last Documented On 10/27/2023 9:17AM ; [facility] - [F41.1 - Generalized anxiety disorder] Generalized anxiety disorder - Last Documented On 10/27/2023 9:17AM ; [facility] Medical Equipment - Implanted Devices Includes: Current Devices No Medical Equipment Recorded Medications Includes: Medications discussed during this encounter and other current Medications New / Renewed during this visit LUCAS JACINTO PMHNP on 10/24/2023 Vyvanse 30 MG Oral Capsule Provider: LUCAS JACINTO PMJANELLE 30 day supply: 30 capsule, 0 refills Diagnosis: Attention-deficit hyperactivity disorder, combined type 1 capsule daily Pharmacy: [facility]) - [address] , [facility], [id number] - Last Documented On 4 10:20AM By Lucas BHAGAT ; [facility] Current Medications (continue as prescribed) clonazePAM 1 MG Oral Tablet 01/30/2024 Provider: LUCAS BHAGAT Diagnosis: Generalized anxi ety disorder TAKE 1/2 TO 1 TABLET BY MOUT H EVERY DAY NEEDED FOR ANXIETY Last Documented On 4 8:58AM By Lucas BHAGAT ; [facility] Vyvanse 50 MG Oral Capsule 01/20/2024 Provider: LUCAS BHAGAT Diagnosis: Attention-defici t hyperactivity disorder, combined type 1 capsule daily Last Documented On 4 4:42PM By Lucas BHAGAT ; [facility] Vyvanse 30 MG Oral Capsule 12/23/2023 Provider: LUCAS BHAGAT Diagnosis: Attention-defici t hyperactivity disorder, combined type 1 capsule daily Last Documented On 4 1:19PM By Lucas BHAGAT ; [facility] Propranolol HCl 10 MG Oral Tablet 09/22/2023 Provider: LUCAS BHAGAT Diagnosis: Generalized anxi ety disorder TAKE 1 TABLET BY MOUTH DAILY Last Documented On 4 11:11AM By Lucas BHAGAT ; [facility] Concerta 36 MG Oral Tablet Extended Release 08/21/2023 Provider: LUCAS DOWLING Diagnosis: Attn-defct hyper activity disorder, predom inattentive type One tablet daily Last Documented On 4 4:47PM By Lucas BHAGAT ; [facility] Concerta 36 MG Oral Tablet Extended Release 05/20/2023 Provider: LUCAS BHAGAT Diagnosis: Last Documented On 06/20/2023 8:02AM By Dayana SURESH ; [facility] Escitalopram Oxalate 10 MG Oral Tablet 03/12/2023 Pr ovider: VERENA ALEX MD Diagnosis: Last Documented On 03/28/2023 1:26PM By Awilda SURESH ; [facility] Past Medications on file busPIRone HCl 15 MG Oral Tablet 08/12/2023 - 12/10/2023 Provider: LUCAS GERMANP Diagnosis: Generalized anxi ety disorder One tablet three times a day Last Documented On 4 1:24PM By Lucas Jacinto PMHNP ; [facility] Venlafaxine HCl ER 37.5 MG Oral Capsule Extended Release 24 Hour 07/15/2023 - 11/12/2023 Provider: LUCAS JACINTO PMSANDRAP Diagnosis: Generalized anxi ety disorder TAKE 1 CAPSULE BY MOUTH EVERY MORNING Last Documented On 3 8:33AM By Lucas Jacinto PMSANDRAP ; [facility] clonazePAM 0.5 MG Oral Tablet 05/30/2023 - 06/09/2023 Provider: LUCAS BHAGAT Diagnosis: Generalized anxi ety disorder One tablet daily as needed for anxiety Last Documented On 3 11:19AM By Lucas Jacinto PMHNP ; [facility] Concerta 36 MG Oral Tablet Extended Release 05/20/2023 - 06/19/2023 Provider: LUCAS BHAGAT Diagnosis: Attn-defct hyper activity disorder, predom inattentive type One tablet daily Last Documented On 3 8:57AM By Lucas STAPLETONHNJenn ; [facility] Medications Administered Includes: Administered Medications from this encounter No Administered Medications Recorded Results Includes: Results discussed during this encounter No Results Recorded For Specified Dates History of Present Illness Includes: History of Present Illness from this encounter HPI JENNA RENTERIA is a 32 year old female. - Allergy list reviewed - Past medical history reviewed - Problem list reviewed - Medication reconciliation performed - Medication list reviewed - Family history reviewed - Surgical history reviewed Depression on a scale of 0-10 with 10 being the worst: 1 Anxiety on a scale of 0-10 with 10 being the worst: 4 Jenna was on time today for telehealth visit. Alert and oriented times 4, anxious, cooperative, and dressed appropriately for the weather. She reports a moderate amount of anxiety and mild amount of depression today, mood is better per client. She reports sleeping about 7-8 hours at night, denies any nightmares or flashbacks to past trauma. She is eating 3 meals a day, appetite is good. . Client reports everything is going much better since last visit. She feels like the [employer] is not working through the day and wondering if could try something new. Discussed starting vyvanse 30 mg po qd for adhd , voiced verbal understanding. Client given support and reassurance. She denies any side effects or adverse reaction to medications, will continue as directed. Patient consent for virtual visit obtained on ( ). This visit was conducted with use of: audio and visual Originating site: Home Distant Site: Patient's Home Total visit time: 30 minutes [id number] 30 min Social History Description Last Updated Tobacco non-user 10/24/2023 Last Documented On 4 9:17AM ; [facility] Smoking Status Unknown Procedures and Surgical History Includes: Procedures from this encounter Procedures Code Diagnosis Performing Provider Service L ocation Service Date plan of care reviewed and agreed to by the patient Last Documented On 4 2:33PM ; [facility] use of tobacco assessment performed 1000F Last Documented On 4 2:33PM ; [facility] no influenza immunization Last Documented On 4 2:33PM ; [facility] review of medications documented 1160F Last Documented On 4 2:33PM ; [facility] no history of pneumococcal vaccine Last Documented On 4 2:33PM ; [facility] assessment of suicide risk performed -No t suicidal Last Documented On 4 2:33PM ; [facility] encouragement to exercise Last Documented On 4 2:33PM ; [facility] Clinical summary provided to patient Last Documented On 4 2:33PM ; [facility] Surgical History Last Updated History of tubal ligation 03/28/2023 Last Documented On 4 2:33PM ; [facility] Medical History Includes: Medical History addressed during this encounter Description Last Updated Surgery APENDECOTMY 03/28/2023 Last Documented On 4 2:33PM ; [facility] Depression 03/28/2023 Last Documented On 4 2:33PM ; [facility] Family History Includes: Family History addressed during this encounter Description Last Updated Family history of bleeding problems 03/11 Last Documented On 4 2:33PM ; [facility] Family history of heart disease 03/28/20 23 Last Documented On 4 2:33PM ; [facility] Maternal grandfather is 023 Last Documented On 4 2:33PM ; [facility] Paternal grandfather is 023 Last Documented On 4 2:33PM ; [facility] Review of Systems Includes: Review of Systems from this encounter Gastrointestinal: Normal appetite. Psychological: Not feeling restless and no feelings of hopelessness. Not feeling helpless, no decreased functioning ability, no increase in energy, no thoughts of self-harm, no low self-esteem, not feeling guilty, and no [...] Check-Out Time Diagnosis TELEHEALTH LUCAS JACINTO PMHNP [facility] 10/24/19 24 2:31PM 11:59PM Generalized Anxiety Disorder,Attentio n Deficit Disorder Without Hyperactivity Insurance Includes: Active Insurance Policies Plan Name Member ID Group # Subscriber Relationship Effect sonia Dates 1 - [facility] [id number] JENNA RENTERIA Self Clinical Notes Includes: Clinical Notes from this encounter * Progress note Date Encounter Last Documented by 10/24/2023 TELEHEALTH Last documented on 10/27/2023; 9:17 AM, LUCAS JACINTO HNP; [facility] Active Problems & Conditions - F90.0 - Attention Deficit Disorder Without Hyperactivity - F41.1 - Generalized Anxiety Disorder Chief Complaint The Chief Complaint is: Medication follow-up via telepsych. Reason For Visit Telehealth visit for medication follow-up History of Present Illness JENNA RENTERIA is a 32 year old female. - Allergy list reviewed - Past medical history reviewed - Problem list reviewed - Medication reconciliation performed - Medication list reviewed - Family history reviewed - Surgical history reviewed Depression on a scale of 0-10 with 10 being the worst: 1 Anxiety on a scale of 0-10 with 10 being the worst: 4 Jenna was on time today for telehealth visit. Alert and oriented times 4, anxious, cooperative, and dressed appropriately for the weather. She reports a moderate amount of anxiety and mild amount of depression today, mood is better per client. She reports sleeping about 7-8 hours at night, denies any nightmares or flashbacks to past trauma. She is eating 3 meals a day, appetite is good. . Client reports everything is going much better since last visit. She feels like the [employer] is not working through the day and wondering if could try something new. Discussed starting vyvanse 30 mg po qd for adhd , voiced verbal understanding. Client given support and reassurance. She denies any side effects or adverse reaction to medications, will continue as directed. Patient consent for virtual visit obtained on ( ). This visit was conducted with use of: audio and visual Originating site: Home Distant Site: Patient's Home Total visit time: 30 minutes [id number] 30 min User Defined 4 Past Psychiatric Hospitalization: denies Counseling: a few years ago 2020 Psychiatric medications taken in past: Wellbutrin sr Zoloft Hydroxyzine Current Medication - busPIRone HCl 15 MG Oral Tablet One tablet three times a day, 30 days, 3 refills - clonazePAM 0.5 MG Oral Tablet 30 days, 0 refills - clonazePAM 1 MG Oral Tablet TAKE 1/2 TO 1 TABLET BY MOUTH EVERY DAY NEEDED FOR ANXIETY, 30 days, 0 refills - Concerta 36 MG Oral Tablet Extended Release One tablet daily 30 days, 0 refills - Concerta 36 MG Oral Tablet Extended Release One tablet daily, 30 days, 0 refills - Concerta 36 MG Oral Tablet Extended Release One tablet daily, 30 days, 0 refills - Escitalopram Oxalate 10 MG Oral Tablet 30 days, 0 refills - Propranolol HCl 10 MG Oral Tablet TAKE 1 TABLET BY MOUTH DAILY, 90 days, 0 refills - Venlafaxine HCl ER 37.5 MG Oral Capsule Extended Release 24 Hour TAKE 1 CAPSULE BY MOUTH EVERY MORNING, 30 days, 3 refills Past Medical/Surgical History Reported: Surgery APENDECOTMY. [...] decreased functioning ability, no increase in energy, no thoughts of self-harm, no low self-esteem, not feeling guilty, and no compulsion. No feelings of grandeur, no racing thoughts, and no excessive crying. Does not feel worthless. All systems were reviewed and are negative at this time unless otherwise noted. Physical Findings Psychological: - No preoccupation with roman catholic. - No hallucinations. - Not hearing voices [...] Judgement was not impaired. Speech: - Normal. Gait And Stance: - Normal. - No ataxic gait was observed. Psychiatric: - Mood was anxious. - Mood [...] - Attention-deficit hyperactivity disorder, combined type Vyvanse 30 MG capsule 1 capsule daily, 30 days, 0 refills EndCited Call [phone] or go to the nearest emergency room if suicidal/homicidal ideation or other serious concerns arise. Call office if any questions or concerns arise. Client voiced understanding and agreed to treatment plan. Follow-up appointment 1 month as directed. Practice Management Use of tobacco assessment performed Review of medications documented; No influenza immunization. Health Reminders - Assess Tobacco Use satisfied 10/24/2023. - Follow up plan for Depression Screening satisfied 10/24/2023.
--- OUTSIDE RECORDS SUMMARY | 2024-11-26 08:22 | XMS_ITS | Clinical Summary ---
Author Organization [facility] Address [address] [place] [address] Phone Care Team Providers Care Missile Facilities Repairer Name Role Phone BORDEN JEWEL FLAT SURFACER, ROMAN-C, SUSAN Primary Care Provider + [phone] Reason for Visit and Chief Complaint * PHONE CALL Problems Includes: Problems addressed during this encounter and other active Problems All Visits Onset Date Resolved Date Provider Condition S tatus Attention Deficit Disorder Without Hyperactivity 03/28/2023 LUCAS BHAGAT Active Last Documented On 3 1:37PM ; [facility] Generalized Anxiety Disorder 03/28/2023 LUCAS STAPLETONHNP Active Last Documented On 3 1:37PM ; [facility] Plan of Treatment No Plan of Treatment Recorded Assessments Includes: Assessments from this encounter No Assessments Recorded Medical Equipment - Implanted Devices Includes: Current Devices No Medical Equipment Recorded Medications Includes: Medications discussed during this encounter and other current Medications New / Renewed during this visit LUCAS GERMANP on 09/29/2023 Concerta 36 MG Oral Tablet Extended Release Provider: LUCAS Barajas [facility] 30 day supply: 30 tablet, 0 refills Diagnosis: Attn-defct hyperactivity disorder, predom inattentive type One tablet daily Pharmacy: [address] ([place]), [id number] - Last Documented On 4 9:14AM By Lucas BHAGAT ; [facility] Current Medications (continue as prescribed) clonazePAM 1 MG Oral Tablet 01/30/2024 Provider: LUCAS BHAGAT Diagnosis: Generalized anxi ety disorder TAKE 1/2 TO 1 TABLET BY MOUT H EVERY DAY NEEDED FOR ANXIETY Last Documented On 4 8:58AM By Lucas Jacinto PMHNP ; [facility] Vyvanse 50 MG Oral Capsule 01/20/2024 Provider: LUCAS GERMANP Diagnosis: Attention-defici t hyperactivity disorder, combined type 1 capsule daily Last Documented On 4 4:42PM By Lucas Jacinto PMHNP ; [facility] Vyvanse 30 MG Oral Capsule 12/23/2023 Provider: LUCAS JACINTO PMSANDRAP Diagnosis: Attention-defici t hyperactivity disorder, combined type 1 capsule daily Last Documented On 4 1:19PM By Lucas Jacinto PMHNP ; [facility] Propranolol HCl 10 MG Oral Tablet 09/22/2023 Provider: LUCAS GERMANP Diagnosis: Generalized anxi ety disorder TAKE 1 TABLET BY MOUTH DAILY Last Documented On 4 11:11AM By Lucas Jacinto PMHNP ; [facility] Concerta 36 MG Oral Tablet Extended Release 08/21/2023 Provider: LUCAS Barajas NP Diagnosis: Attn-defct hyper activity disorder, predom inattentive type One tablet daily Last Documented On 4 4:47PM By Lucas Jacinto PMHNP ; [facility] Concerta 36 MG Oral Tablet Extended Release 05/20/2023 Provider: LUCAS JACINTO PMSANDRAP Diagnosis: Last Documented On 06/20/2023 8:02AM By Dayana SURESH ; [facility] Escitalopram Oxalate 10 MG Oral Tablet 03/12/2023 Pr ovider: VERENA ALEX MD Diagnosis: Last Documented On 03/28/2023 1:26PM By Awilda SURESH ; [facility] Past Medications on file busPIRone HCl 15 MG Oral Tablet 08/12/2023 - 12/10/2023 Provider: LUCAS JACINTO PMSANDRAP Diagnosis: Generalized anxi ety disorder One tablet three times a day Last Documented On 4 1:24PM By Lucas Jacinto PMHNP ; [facility] Venlafaxine HCl ER 37.5 MG Oral Capsule Extended Release 24 Hour 07/15/2023 - 11/12/2023 Provider: LUCAS BHAGAT Diagnosis: Generalized anxi ety disorder TAKE 1 CAPSULE BY MOUTH EVERY MORNING Last Documented On 3 8:33AM By Lucas BHAGAT ; [facility] clonazePAM 0.5 MG Oral Tablet 05/30/2023 - 06/09/2023 Provider: LUCAS BHAGAT Diagnosis: Generalized anxi ety disorder One tablet daily as needed for anxiety Last Documented On 3 11:19AM By Lucas BHAGAT ; [facility] Concerta 36 MG Oral Tablet Extended Release 05/20/2023 - 06/19/2023 Provider: LUCAS GERMANP Diagnosis: Attn-defct hyper activity disorder, predom inattentive type One tablet daily Last Documented On 3 8:57AM By Lucas BHAGAT ; [facility] Medications Administered Includes: Administered Medications from this encounter No Administered Medications Recorded Results Includes: Results discussed during this encounter No Results Recorded For Specified Dates History of Present Illness Includes: History of Present Illness from this encounter No History of Present Illness Recorded Social History No Social History Recorded - Smoking Status Unknown Procedures and Surgical History Surgical History Last Updated History of tubal ligation 03/28/2023 Last Documented On 4 6:02PM ; [facility] Medical History Includes: Medical History addressed during this encounter Description Last Updated Surgery APENDECOTMY 03/28/2023 Last Documented On 4 6:02PM ; [facility] Depression 03/28/2023 Last Documented On 4 6:02PM ; [facility] Family History Includes: Family History addressed during this encounter Description Last Updated Family history of bleeding problems 03/11 Last Documented On 4 6:02PM ; [facility] Family history of heart disease 03/28/20 23 Last Documented On 4 6:02PM ; [facility] Maternal grandfather is 023 Last Documented On 4 6:02PM ; [facility] Paternal grandfather is 023 Last Documented On 4 6:02PM ; [facility] Review of Systems Includes: Review of Systems from this encounter No Review of Systems Recorded Mental Status Includes: Mental Status from this encounter No Mental Status Recorded Functional Status Includes: Functional Status from this encounter No Functional Status Recorded Physical Exam Includes: Physical Exam from this encounter No Physical Exam Recorded Allergies Includes: Active Allergies No Known Allergies Encounters Encounter Provider Location Date Check-In Time Check-Out Time Diagnosis * PHONE CALL LUCAS JACINTO PMHNP [facility] 6:02PM 11:59PM Insurance Includes: Active Insurance Policies Plan Name Member ID Group # Subscriber Relationship Effect sonia Dates - [place] [employer] [facility] [id number] JOSE Casillas Clinical Notes Includes: Clinical Notes from this encounter * Progress note Date Encounter Last Documented by 09/29/2023 * PHONE CALL Last documented on 09/29/2023; 6:04 PM, LUCAS JACINTO PMHNP; [facility] Active Problems & Conditions - F90.0 - Attention Deficit Disorder Without Hyperactivity - F41.1 - Generalized Anxiety Disorder Current Medication - busPIRone HCl 15 MG Oral Tablet One tablet three times a day, 30 days, 3 refills - clonazePAM 0.5 MG Oral Tablet 30 days, 0 refills - clonazePAM 1 MG Oral Tablet 1/2-1 tablet as needed once a day for anxiety, 30 days, 0 refills - Concerta 36 [...] Heart disease Bleeding problems Plan StartCited - Attn-defct hyperactivity disorder, predom inattentive type Concerta 36 MG tablet One tablet daily, 30 days, 0 refills EndCited
--- OUTSIDE RECORDS SUMMARY | 2024-11-26 08:22 | XMS_ITS ---
Care Plan - [facility] Created on: November 26, 2024 JOSE RENTERIA : 1990 Sex: Female Author Organization [facility] Address [address] [place] [address] Phone Care Team Providers Care Administrative Operations Coordinator Name Role Phone BORDEN ELIZABETH, MALLORIE, SUSAN Primary Care Provider [phone]
--- OUTSIDE RECORDS SUMMARY | 2024-11-26 08:22 | XMS_ITS | Clinical Summary ---
Author Organization [facility] Address [address] [facility] [facility] [address] [place] [address] Phone Care Team Providers Care Medical Care Evaluation Specialist Name Role Phone Unavailable Primary Care Provider Unavailabl e Social History Tobacco Use Types Packs/Day Years Used Date Smoking Tobacco: Never Assessed Comments Unknown Sex and Gender Information Value Date Recorded Sex Assigned at Not on file Legal Sex Female 11:44 PM CDT Gender Identity Not on file Sexual Orientation Not on file Plan of Treatment Health Maintenance Due Date Last Done Comments HEPATITIS B VACCINES (1 of 3 - 19+ 3-dose series) 12/12/2010 HPV/Cotest (21-29) 12/12/2012 PAP SMEAR 12/12/2012 CERVICAL CANCER SCREENING 12/12/2021 HPV/Cotest (30-65) 12/12/2021 PAP SMEAR 12/12/2021 DTAP/TDAP/TD VACCINES (3 - T d or Tdap) 07/13/2023 07/13/2013, 05/31/2010 INFLUENZA VACCINE (#1) 2024 , 04/30/2010 PNEUMOCOCCAL VACCINE 0-49 YEARS Aged Out 10/02/2013 No longer eligible b ased on patient's age to complete this topic HPV VACCINES Aged Out No longer eligi ble based on patient's age to complete this topic Insurance [facility] MEDICAID
--- OUTSIDE RECORDS SUMMARY | 2024-11-26 08:22 | XMS_ITS | Encounter Summary ---
Author Organization [facility] Address [address] [place] [address] Care Team Providers Care Engraving Press Operator Name Role Phone Nopcp, Patient Primary Care Provider Tegan Yang MD Primary Care Provider Un available Encounter Details Date Type Department Care Team (Late st Contact Info) Description 03/04/2011 SS Outpatient Visit EXTERNAL [facility] DEPT Awilda Shahid, [address] [facility] [address] [place], [place] [id number] Social History Tobacco Use Types Packs/Day Years Used Date Smoking Tobacco: Former Alcohol Use Standard Drinks/Week Comments No 0 (1 standard drink = 0.6 oz pur e alcohol) Comments Yes Sex and Gender Information Value Date Recorded Sex Assigned at Not on file Legal Sex Female 8:15 AM MANAGER SERVICING Gender Identity Not on file Sexual Orientation Not on file documented as of this encounter Plan of Treatment Not on file documented as of this encounter Visit Diagnoses Not on filedocumented in this encounter Additional Health Concerns Infection Onset Date Last Indicated Resolved Time COVID-19 Under Investigation 08/09/2020 08/09/2020 08/10/2020 12:23 AM MANAGER SERVICING COVID-19 Confirmed 08/09/2020 08/09/2020 1 4:35 AM MANAGER SERVICING documented as of this encounter Care Teams Engraving Press Operator Relationship Specialty Start Date End Date Nopcp, Patient PCP - General 11/30/09 06/18/12 Tegan Pinto MD PCP - General 06/19/12 documented as of this encounter
--- OUTSIDE RECORDS SUMMARY | 2024-11-26 08:23 | XMS_ITS | Clinical Summary ---
Author Organization [facility] Address [address] [place] [address] Phone Care Team Providers Care Settlement Worker Name Role Phone BORDEN COATING AND EMBOSSING UNIT OPERATOR, ROMAN-C, SUSAN Primary Care Provider [phone] Reason for Visit and Chief Complaint RX ISSUE/REFILL Problems Includes: Problems addressed during this encounter and other active Problems All Visits Onset Date Resolved Date Provider Condition S tatus Attention Deficit Disorder Without Hyperactivity 03/28/2023 SUSIE BHAGAT Active Last Documented On 3 1:37PM ; [facility] Generalized Anxiety Disorder 03/28/2023 SUSIE JACINTO PMHNP Active Last Documented On 3 1:37PM ; [facility] Plan of Treatment No Plan of Treatment Recorded Assessments Includes: Assessments from this encounter No Assessments Recorded Medical Equipment - Implanted Devices Includes: Current Devices No Medical Equipment Recorded Medications Includes: Medications discussed during this encounter and other current Medications New / Renewed during this visit SUSIE STAPLETONHNP on 01/20/2024 Vyvanse 50 MG Oral Capsule Provider: SUSIE BHAGAT 30 day supply: 30 capsule, 0 refills Diagnosis: Attention-deficit hyperactivity disorder, combined type 1 capsule daily Pharmacy: [facility]) - [address], [id number] - Last Documented On 4 4:42PM By Susie BHAGAT ; [facility] Current Medications (continue as prescribed) clonazePAM 1 MG Oral Tablet 01/30/2024 Provider: SUSIE BHAGAT Diagnosis: Generalized anxi ety disorder TAKE 1/2 TO 1 TABLET BY MOUT H EVERY DAY NEEDED FOR ANXIETY Last Documented On 4 8:58AM By Susie Jacinto PMHNP ; [facility] Vyvanse 30 MG Oral Capsule 12/23/2023 Provider: SUSIE BHAGAT Diagnosis: Attention-defici t hyperactivity disorder, combined type 1 capsule daily Last Documented On 4 1:19PM By Susie Jacinto PMHNP ; [facility] Propranolol HCl 10 MG Oral Tablet 09/22/2023 Provider: SUSIE GERMANP Diagnosis: Generalized anxi ety disorder TAKE 1 TABLET BY MOUTH DAILY Last Documented On 4 11:11AM By Susie Jacinto PMHNP ; [facility] Concerta 36 MG Oral Tablet Extended Release 08/21/2023 Provider: SUSIE Barajas BRENDA Diagnosis: Attn-defct hyper activity disorder, predom inattentive type One tablet daily Last Documented On 4 4:47PM By Susie Jacinto PMHNP ; [facility] Concerta 36 MG Oral Tablet Extended Release 05/20/2023 Provider: SUSIE GERMANP Diagnosis: Last Documented On 06/20/2023 8:02AM By Dayana Lamar Terrance ; [facility] Escitalopram Oxalate 10 MG Oral Tablet 03/12/2023 Pr ovider: VERENA ALEX MD Diagnosis: Last Documented On 03/28/2023 1:26PM By Awilda Belle Terrance ; [facility] Past Medications on file busPIRone HCl 15 MG Oral Tablet 08/12/2023 - 12/10/2023 Provider: SUSIE JACINTO PMSANDRAP Diagnosis: Generalized anxi ety disorder One tablet three times a day Last Documented On 4 1:24PM By Susie Jacinto PMSANDRAP ; [facility] Venlafaxine HCl ER 37.5 MG Oral Capsule Extended Release 24 Hour 07/15/2023 - 11/12/2023 Provider: SUSIE JACINTO PMSANDRAP Diagnosis: Generalized anxi ety disorder TAKE 1 CAPSULE BY MOUTH EVERY MORNING Last Documented On 3 8:33AM By Susie Jacinto PMHNP ; [facility] clonazePAM 0.5 MG Oral Tablet 05/30/2023 - 06/09/2023 Provider: SUSIE BHAGAT Diagnosis: Generalized anxi ety disorder One tablet daily as needed for anxiety Last Documented On 3 11:19AM By Susie BHAGAT ; [facility] Concerta 36 MG Oral Tablet Extended Release 05/20/2023 - 06/19/2023 Provider: SUSIE BHAGAT Diagnosis: Attn-defct hyper activity disorder, predom inattentive type One tablet daily Last Documented On 3 8:57AM By Susie BHAGAT ; [facility] Medications Administered Includes: Administered Medications from this encounter No Administered Medications Recorded Results Includes: Results discussed during this encounter No Results Recorded For Specified Dates History of Present Illness Includes: History of Present Illness from this encounter JENNIFER RENTERIA is a 33 year old female. Pharmacy name:~location:[facility]. Social History No Social History Recorded - Smoking Status Unknown Procedures and Surgical History Surgical History Last Updated History of tubal ligation 03/28/2023 Last Documented On 4 3:59PM ; [facility] Medical History Includes: Medical History addressed during this encounter Description Last Updated Surgery APENDECOTMY 03/28/2023 Last Documented On 4 3:59PM ; [facility] Depression 03/28/2023 Last Documented On 4 3:59PM ; [facility] Family History Includes: Family History addressed during this encounter Description Last Updated Family history of bleeding problems 03/11 Last Documented On 4 3:59PM ; [facility] Family history of heart disease 03/28/20 23 Last Documented On 4 3:59PM ; [facility] Maternal grandfather is 023 Last Documented On 4 3:59PM ; [facility] Paternal grandfather is 023 Last Documented On 4 3:59PM ; [facility] Review of Systems Includes: Review of Systems [...] Check-In Time Check-Out Time Diagnosis RX ISSUE/REFILL SUSIE JACINTO PMHNP 01/20/2024 4:02PM 11:59PM Insurance Includes: Active Insurance Policies Plan Name Member ID Group # Subscriber Relationship Effect sonia Dates 1 - [facility] [id number] JOSE RENTERIA Self Clinical Notes Includes: Clinical Notes from this encounter * Progress note Date Encounter Last Documented by 01/20/2024 RX ISSUE/REFILL Last documented on 01/20/2024; 4:34 PM, SUSIE JACINTO PMHNP; [facility] Active Problems & Conditions - [...] PLEASE ADVISE pt phone # for return call:[phone] date/initials:01-20-24 [facility]. History of Present Illness JOSE RENTERIA is a 33 year old female. Pharmacy name:~location:[facility]. Current Medication - clonazePAM 1 MG [...]
--- OUTSIDE RECORDS SUMMARY | 2024-11-26 08:23 | XMS_ITS | Clinical Summary ---
Author Organization [facility] Address [address] [place] [address] Phone Care Team Providers Care Catalyst Operator Name Role Phone BORDEN SAP ANALYST, AIR CONDITIONING INSULATION INSTALLER-C, SUSAN Primary Care Provider [phone] Reason for Visit and Chief Complaint [Patient Encounter] Problems Includes: Problems addressed during this encounter and other active Problems All Visits Onset Date Resolved Date Provider Condition S tatus Attention Deficit Disorder Without Hyperactivity 03/28/2023 LUCAS BHAGAT Active Last Documented On 3 1:37PM ; [facility] Generalized Anxiety Disorder 03/28/2023 LUCAS JACINTO PMSANDRAP Active Last Documented On 3 1:37PM ; [facility] Plan of Treatment No Plan of Treatment Recorded Assessments Includes: Assessments from this encounter No Assessments Recorded Medical Equipment - Implanted Devices Includes: Current Devices No Medical Equipment Recorded Medications Includes: Medications discussed during this encounter and other current Medications Discontinued / Stopped on this date LUCAS BHAGAT on 09/22/2023 Propranolol HCl 10 MG Oral Tablet Provider: LUCAS BHAGAT Diagnosis: Generalized anxi ety disorder Last Documented On 4 11:09AM By Lucas BHAGAT ; [facility] Current Medications (continue as prescribed) clonazePAM 1 MG Oral Tablet 01/30/2024 Provider: LUCAS BHAGAT Diagnosis: Generalized anxi ety disorder TAKE 1/2 TO 1 TABLET BY MOUT H EVERY DAY NEEDED FOR ANXIETY Last Documented On 4 8:58AM By Lucas BHAGAT ; [facility] Vyvanse 50 MG Oral Capsule 01/20/2024 Provider: LUCAS BHAGAT Diagnosis: Attention-defici t hyperactivity disorder, combined type 1 capsule daily Last Documented On 4 4:42PM By Lucas STAPLETONHNP ; [facility] Vyvanse 30 MG Oral Capsule 12/23/2023 Provider: LUCAS BHAGAT Diagnosis: Attention-defici t hyperactivity disorder, combined type 1 capsule daily Last Documented On 4 1:19PM By Lucas STAPLETONHNP ; [facility] Propranolol HCl 10 MG Oral Tablet 09/22/2023 Provider: LUCAS BHAGAT Diagnosis: Generalized anxi ety disorder TAKE 1 TABLET BY MOUTH DAILY Last Documented On 4 11:11AM By Lucas STAPLETONHNP ; [facility] Concerta 36 MG Oral Tablet Extended Release 08/21/2023 Provider: LUCAS DOWLING Diagnosis: Attn-defct hyper activity disorder, predom inattentive type One tablet daily Last Documented On 4 4:47PM By Lucas GERMANP ; [facility] Concerta 36 MG Oral Tablet Extended Release 05/20/2023 Provider: LUCAS BHAGAT Diagnosis: Last Documented On 06/20/2023 8:02AM By Dayana SURESH ; [facility] Escitalopram Oxalate 10 MG Oral Tablet 03/12/2023 Pr ovider: VERENA ALEX MD Diagnosis: Last Documented On 03/28/2023 1:26PM By Awilda SURESH ; [facility] Medications Administered Includes: Administered Medications from this encounter No Administered Medications Recorded Results Includes: Results discussed during this encounter No Results Recorded For Specified Dates History of Present Illness Includes: History of Present Illness from this encounter No History of Present Illness Recorded Social History No Social History Recorded - Smoking Status Unknown Medical History Includes: Medical History addressed during this encounter No Medical History Recorded Family History Includes: Family History addressed during this encounter No Family History Recorded Review of Systems Includes: Review of Systems [...] Location Date Check-In Time Check-Out Time Diagnosis [Patient Encounter] LUCAS BHAGAT 09/22/2023 8:26AM 11:59PM Insurance Includes: Active Insurance Policies Plan Name Member ID Group # Subscriber Relationship Effect sonia Dates 1 - [facility] [id number] JOSE RENTERIA Self Clinical Notes Includes: Clinical Notes from this encounter No Clinical Notes Recorded
[2024-11-26 09:31] LABS: Syphilis IgG/IgM Antibody Negative (Negative)
[2024-11-26 09:44] LABS: HIV 1/2 Ab P24 Ag Result Negative (Negative)
[2024-11-26 09:52] LABS: Hepatitis C Virus Antibody Negative (Negative)
[2024-11-27 03:12] LABS: Hepatitis Be Antibody NON-REACTIVE (NON-REACTIVE)
== END 2024-11-26 08:18 | disposition home or self-care (01) ==
LOC: ANHLAB 08:17
PROVIDERS: PCP Nurse Practitioner Family; Visit Provider Nurse Practitioner Obstetrics & Gynecology
DX: Z11.3 Encounter for screening for infections with a predominantly sexual mode of transmission (principal)
CPT/HCPCS: 36415; 86593; 86703; 86707; 86803; G0432

== ENCOUNTER 2025-01-18 08:14 | Emergency (ER) | payer OTHER, SELFPAY ==
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
--- OUTSIDE RECORDS SUMMARY | 2025-01-18 08:17 | XMS_ITS | Clinical Summary ---
Author Organization [facility] Address [address] [facility] [address] Care Team Providers Care Mincemeat Maker Name Role Phone Tegan Pinto MD Primary Care Provider Un available Source Comments [facility],non-owned Affiliates and Associated Physician Practices is amultiple site organization consisting of ambulatory clinics and hospital sitesin [place], [place], [place] and [place]. This disclosure is being madepursuant to the Care Everywhere program and may not contain all information available regarding this patient. Last updated 18.[facility] Allergies No known active allergies Medications * [...] on file Legal Sex Female 8:15 AM RESTAURANT ATTENDANT Gender Identity Not on file Sexual Orientation Not on file Last Filed Vital Signs Vital Sign Reading Time Taken Comments Blood Pressure 120/57 08/09/2020 10:14 AM RESTAURANT ATTENDANT Pulse 86 08/09/2020 10:14 AM RESTAURANT ATTENDANT Temperature 36.8 C (98.2 F) 08/09/2020 10:14 AM RESTAURANT ATTENDANT Respiratory Rate 18 08/09/2020 10:14 AM RESTAURANT ATTENDANT Oxygen Saturation 99% 08/09/2020 10:14 AM RESTAURANT ATTENDANT Inhaled Oxygen Concentration - - Weight 72.6 kg (160 lb) 08/09/2020 10:14 AM RESTAURANT ATTENDANT Height 165.1 cm (5' 5) 08/09/2020 10:14 AM RESTAURANT ATTENDANT Body Mass Index 26.63 08/09/2020 10:14 AM RESTAURANT ATTENDANT Plan of Treatment Health Maintenance Due Date [...] PM CDT Narrative Resulting Agency Comment [facility] [address] [facility] [id number] Enid Silva BIG DATA ENGINEER-ONYX CHIP TERRAZZO WORKER LAB - CHEMISTRY ORDERABLE S Final Result Performing Organization Address City/State/[facility] Co de Phone Number [facility] ACCOUNT BILL [address] [place] [address] * HEPATITIS SCREEN ACUTE (04/21/2015 3:12 PM [...] offers HCV Ab w/Reflex to Verification test #[id number]. Blood specimen (specimen) BLOOD SPECIMEN / Unknown 04/21/2015 3:12 PM CDT 04/21/2015 5:16 PM CDT Narrative Resulting Agency Comment [facility] [address] [facility] [phone] Enid Silva BIG DATA ENGINEER-ONYX CHIP TERRAZZO WORKER LAB - CHEMISTRY ORDERABLE S Final Result [facility] ACCOUNT BILL [address] [place] [address] from Last 3 Months or Most Recently Relevant to Health Maintenance [place] [id number] [email or web address] Advance Directives * Full Code (Latest Code Status on File) Date Activated Date Inactivated Comments 10/01/2013 6:44 AM 10/01/2013 5:22 PM * FULL RESUSCITATION Date Activated Date Inactivated Comments 10/16/2011 11:20 AM 10/18/2011 10:28 PM * Full Code Date Activated Date Inactivated Comments 05/28/2010 6:22 PM 06/02/2010 12:54 AM Care Teams Mincemeat Maker Relationship Specialty Start Date End Date Tegan Pinto MD PCP - General 06/19/12
--- OUTSIDE RECORDS SUMMARY | 2025-01-18 08:18 | XMS_ITS | Clinical Summary ---
Author Organization [employer] Ioana coppola 2022 Address [address] [address] [place] [address] Phone Care Team Providers Care Rn Transport Name Role Phone Unavailable Primary Care Provider [...] 19+ 3-dose series) 12/12/2010 HPV/Cotest (21-29) 12/12/2012 CERVICAL CANCER SCREENING 12/12/2021 HPV/Cotest (30-65) 12/12/2021 PAP SMEAR 12/12/2021 DTAP/TDAP/TD VACCINES (3 - Td or Tdap) 07/13/2023 07/13/2013, 05/31/2010 INFLUENZA VACCINE (#1) 2024 , 04/30/2010 HPV VACCINES Aged Out No longer eligi ble based on patient's age to complete this topic Insurance [facility] MEDICAID
--- OUTSIDE RECORDS SUMMARY | 2025-01-18 08:18 | XMS_ITS | Encounter Summary ---
Author Organization [facility] Address [address] [place] [address] Care Team Providers Care Leasing Specialist Name Role Phone Nopcp, Patient Primary Care Provider Tegan Yang MD Primary Care Provider Un available Encounter Details Date Type Department Care Team (Late st Contact Info) Description 03/04/2011 SS Outpatient Visit EXTERNAL NON-[facility] DEPT Awilda Shahid, [address] [facility] [address] [place], [place] [id number] Social History Tobacco Use Types Packs/Day Years Used Date Smoking Tobacco: Former Alcohol Use Standard Drinks/Week Comments No 0 (1 standard drink = 0.6 oz pur e alcohol) Comments Yes Sex and Gender Information Value Date Recorded Sex Assigned at Not on file Legal Sex Female 8:15 AM HAND UPPER AND BOTTOM LACER Gender Identity Not on file Sexual Orientation Not on file documented as of this encounter Plan of Treatment Not on file documented as of this encounter Visit Diagnoses Not on filedocumented in this encounter Additional Health Concerns Infection Onset Date Last Indicated Resolved Time COVID-19 Under Investigation 08/09/2020 08/09/2020 08/10/2020 12:23 AM HAND UPPER AND BOTTOM LACER COVID-19 Confirmed 08/09/2020 08/09/2020 1 4:35 AM HAND UPPER AND BOTTOM LACER documented as of this encounter Care Teams Leasing Specialist Relationship Specialty Start Date End Date Nopcp, Patient PCP - General 11/30/09 06/18/12 Tegan Pinto MD PCP - General 06/19/12 documented as of this encounter
--- OUTSIDE RECORDS SUMMARY | 2025-01-18 08:18 | XMS_ITS | Encounter Summary ---
Author Organization [facility] Address [address] [place] [address] Care Team Providers Care Gum Remover Name Role Phone Tegan Pinto MD Primary Care Provider Un available Encounter Details Date Type Department Care Team (Late st Contact Info) Description 08/10/[address] [facility] [address] [place] [address], [address] [place] [id number] Leelee Bucio, TOOL MECHANIC-V BELT CUR[address] [place] [address] Social History Tobacco Use Types Packs/Day Years [...] on file Legal Sex Female 8:15 AM MEDICAL CARE ADMINISTRATOR Gender Identity Not on file Sexual Orientation Not on file documented as of this encounter Functional Status * Is person deaf or have serious hearing difficulty? Answer Date of Assessment Author No 06/24/2016 7:38 AM MEDICAL CARE ADMINISTRATOR Letha Medina RN * Is person blind [...] Under Investigation 08/09/2020 08/09/2020 08/10/2020 12:23 AM MEDICAL CARE ADMINISTRATOR COVID-19 Confirmed 08/09/2020 08/09/2020 1 4:35 AM MEDICAL CARE ADMINISTRATOR documented as of this encounter Care Teams Gum Remover Relationship Specialty Start Date End Date Tegan Pinto MD PCP - General 06/19/12 documented as of this encounter
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
[2025-01-18 08:22] VITALS: BP 131/80; PULSE 94; RESP 20; TEMP 37; O2SAT 100
--- NOTE | 2025-01-18 08:30 | ED.URI ---
HPI - URI/Sore Throat General Chief Complaint: Upper Respiratory Infection Stated Complaint: URI symptoms Time Seen by Provider: 01/18/25 08:30 History of Present Illness HPI Narrative: 34 y/o female presented for c/o sore throat, fever/chills, and body aches. Onset 3 days. Pain radiates to right ear. Says she could not get out of bed yesterday due to feeling ill. Denies n/v/d. Took Motrin today and reports some improvement. Related Data Home Medications ?Medication ?Instructions ?Recorded ?Confirmed ?Last Taken ?Type clonazepam 0.5 mg tablet 0.25 mg PO QHS PRN Anxiety 09/24/22 11/26/24 Unknown History lisdexamfetamine 50 mg capsule 50 mg PO DAILY 03/26/24 11/26/24 Unknown History (iXao) propranolol 10 mg tablet 10 mg PO Q12H 11/26/24 11/26/24 Unknown History Allergies Allergy/AdvReac Type Severity Reaction Status Date / Time No Known Allergies Allergy Verified 01/18/25 08:32 Review of Systems Review of Systems: CONSTITUTIONAL:reports body aches, fever, chills, sweats. EYES: Denies visual changes, redness, or discharge. ENT: reports sore throat Denies rhinorrhea, congestion, or otalgia. CARDIOVASCULAR: Denies chest pain, palpitations, or edema. RESPIRATORY: Denies dyspnea. GASTROINTESTINAL: Denies abdominal pain, nausea, vomiting, or diarrhea. SKIN: Denies rash NEUROLOGIC: Denies headache PMFSH Past Medical History Medical History Post depression Chorioamnionitis In vitro fertilization Surrogate Vaginal delivery Urinary tract infection Surgical History Surgical History History of bilateral salpingectomy 06/14/22 S/P laparoscopic surgery 06/14/22 Hx of appendectomy Family History Family History Father High cholesterol Mother Hypotension Grandparent Chronic obstructive pulmonary disease Social History Social History Years smoked: 4 Smoking status: Former smoker Tobacco type: cigarettes Smoking end date: 08/11/09 Alcohol intake: never Substance use: never Substance use type: does not use Lack of Transportation: No Lack of Food: Never True Current Housing: I Have Housing Concerned About Future Housing: No Difficulty Paying Gas/Electric Bills: No Difficulty Paying for Meds: No Currently Unemployed: No Difficulty w/ Childcare or Family Care: No Living arrangements: with family Occupation/Education: occupation Gender identity (if verbalized by the patient): Female Sexual Orientation (if Verbalized by the Patient): Straight or Heterosexual Spiritual care concerns: No Exam Narrative: GENERAL: mildly Ill-appearing, no acute distress. EYES: conjunctivae clear ENT: Mucous membranes moist. TM pearly grider with normal light reflex bilaterally; no tragal tenderness. Oropharynx erythematous without lesions. Tonsils enlarged R>L 2+and without exudate. No drooling, no hoarseness, no trismus, uvula midline. No tripod positioning, hot potato voice, or soft palate swelling. NECK: Supple. No lymphadenopathy CHEST: Clear to auscultation, breath sounds equal. No respiratory distress, speaks in full sentences. HEART: Regular rate and rhythm. No murmur heard. SKIN: Warm, dry, no rash. NEURO: Alert and oriented x3. Course Course Emergency Course: Patient is aware of diagnosis, understands and agrees to treatment plan. Anticipatory guidance given. Patient agrees to follow-up as directed and is aware of reasons to seek care at the emergency department. Portions of this record may have been created with voice recognition software Level of Care: Express Care Visit MDM - URI/Sore Throat MDM Narrative Medical decision making narrative: POS strep result reviewed with pt. Advise supportive treatments. Patient is appropriate for outpatient treatment and follow-up. Differential Diagnosis Differential diagnosis: Likely upper respiratory infection, viral infection and pharyngitis Discharge Plan Discharge Clinical Impression: Strep pharyngitis Patient Disposition: Home Condition: Stable Instructions: Antibiotic Form, Strep Throat (ED) Additional Instructions: - Take the antibiotic as directed. Fever and sore throat typically resolve within one to three days. Most patients can return to work, after 12 to 24 hours of antibiotic therapy, provided you are fever free and otherwise well. -Eat and drink things that are easy to swallow, like soft foods, cool liquids, tea with honey, or popsicles . -Salt water gargles and/or may use topical anesthetic ( Chloraseptic spray) or lozenges to relieve dryness or throat pain -Alternate Tylenol and ibuprofen as needed for pain and fever as directed. -Frequent hand washing or hand traffic court magistrate is one of the best ways to prevent spread of infection. Throw away the toothbrush after 24hours of antibiotic. -Follow up with primary care provider in 2-3 days if condition is not improving -Go to the ER if you have trouble breathing, cannot drink enough fluids, have muffled voice or drooling, difficulty opening your mouth, or severe swelling. Patient Language: Puerto Rican Prescriptions: New amoxicillin 500 mg tablet 1,000 mg PO DAILY 10 Days Qty: 20 0RF fluconazole 150 mg tablet 150 mg PO DAILY Qty: 2 0RF No Action propranolol 10 mg tablet 10 mg PO Q12H clonazepam 0.5 mg tablet 0.25 mg PO QHS PRN (Reason: Anxiety) Rx Instructions: administer 30 minutes before bedtime lisdexamfetamine [Vyvanse] 50 mg capsule 50 mg PO DAILY Follow-up/Referrals: Luis,Breann Galeano APN [Primary Care Provider] - Stand Alone Forms: Work/School Release IP Time of Disposition: 08:42
[2025-01-18 08:41] LABS: EDSTREPNEGPOS1 Positive (Negative)
== END 2025-01-18 08:45 | disposition home or self-care (01) ==
PROVIDERS: Emergency Provider Nurse Practitioner Family; PCP Nurse Practitioner Family
DX: J02.0 Streptococcal pharyngitis (principal); Z87.891 Personal history of nicotine dependence
CPT/HCPCS: 87880; 99213; G0463

== ENCOUNTER 2025-06-01 17:29 | Emergency (ER) | payer BC, SELFPAY ==
--- NOTE | 2025-06-01 17:32 | ED_ITS ---
HPI - URI/Sore Throat General Chief Complaint: Upper Respiratory Infection Stated Complaint: throat Time Seen by Provider: 06/01/25 17:34 Source: patient Mode of arrival: ambulatory Limitations: no limitations History of Present Illness HPI Narrative: Jenna is a 34 year old female patient presenting to the clinic today with c/o sore throat, headache, chills, and sweats x 2 days. She reports child tested positive for strep on Friday. Denies any chest pain or shortness of breath. Has taken Tylenol for her pain. Rates her pain currently as 6/10. MD elicited complaint: sore throat and nasal congestion Related Data Home Medications ?Medication ?Instructions ?Recorded ?Confirmed ?Last Taken ?Type clonazepam 0.5 mg tablet 0.25 mg PO QHS PRN Anxiety 0 09/24/22 11/26/24 Unknown History lisdexamfetamine 50 mg capsule 50 mg PO DAILY 03/26/24 11/26/24 Unknown History (Vyvanse) propranolol 10 mg tablet 10 mg PO Q12H 11/26/2411/26 Unknown History fluoxetine 20 mg capsule mg 06/01/25 Unknown History propranolol 20 mg tablet mg 06/01/25 Unknown History Allergies Allergy/AdvReac Type Severity Reaction Status Date / Time No Known Allergies Allergy Verified 06/01/25 17:30 Review of Systems Review of Systems: Pertinent positives per HPI. Patient denies any fever, rash, visual changes, dizziness, cough, shortness of breath, chest pain, palpitations, nausea, vomiting, diarrhea, constipation, abdominal pain, or any urinary issues. [facility] [place] Past Medical History Medical History Post depression Chorioamnionitis In vitro fertilization Surrogate Vaginal delivery Urinary tract infection Surgical History Surgical History History of bilateral salpingectomy 06/14/22 S/P laparoscopic surgery 06/14/22 Hx of appendectomy Family History Family History Father High cholesterol Mother Hypotension Grandparent Chronic obstructive pulmonary disease Social History Social History Years smoked: 4 Smoking status: Former smoker Tobacco type: cigarettes Smoking end date: 08/11/09 Alcohol intake: never Substance use: never Substance use type: does not use Lack of Transportation: No Lack of Food: Never True Current Housing: I Have Housing Concerned About Future Housing: No Difficulty Paying Gas/Electric Bills: No Difficulty Paying for Meds: No Currently Unemployed: No Difficulty w/ Childcare or Family Care: No Living arrangements: with family Occupation/Education: occupation Gender identity (if verbalized by the patient): Female Sexual Orientation (if Verbalized by the Patient): Straight or Heterosexual Spiritual care concerns: No Comments At the time of my signature, I reviewed and agree with the nursing past medical, surgical, social, and family history. There is no relevant family history pertinent to the patient complaint. Exam Narrative: General: Well-developed, well nourished, in no apparent distress Head: Normocephalic, atraumatic Eyes: Pupils equally round and reactive to light bilaterally, EOM intact, sclera and conjunctive clear, no discharge, lids normal Ears: TMs intact and clear, ear canals clear, no drainage, grossly hearing normal. Nose: Nares patent, clear nasal discharge, no inflammation, no sinus tenderness. Mouth: Oral pharynx mildly red without lesions or masses, good dentition, MMM. Neck: Supple, trachea midline, no enlargement of anterior or posterior cervical nodes, no thyroid masses or goiter palpable. Cardio: Regular rate and rhythm, s1 and s2 normal, no murmur appreciated. Resp: Clear to auscultation bilaterally, no rhonchi, rales, wheezing or rubs Course Course Emergency Course: Portions of this record may have been created with voice recognition software. Level of Care: Express Care Visit Vital Signs Vital signs: Vital Signs Temperature 36.6 C 06/01/25 17:34 Pulse Rate 72 06/01/25 17:34 Respiratory Rate 20 06/01/25 17:34 Blood Pressure 126/76 06/01/25 17:34 Pulse Oximetry 100 06/01/25 17:34 Oxygen Delivery Room Air 06/01/25 17:34 Temperature 36.6 C 06/01/25 17:34 Pulse Rate 72 06/01/25 17:34 Respiratory Rate 20 06/01/25 17:34 Blood Pressure 126/76 06/01/25 17:34 Pulse Oximetry 100 10/22/25 17:34 Oxygen Delivery Room Air 06/01/25 17:34 Vital signs reviewed MDM - URI/Sore Throat MDM Narrative Medical decision making narrative: At the time of visit patient is resting comfortably on the exam table. Patient appears to be nontoxic. C/o sore throat, headache, chills, and sweats x 2 days. She reports child tested positive for strep on Friday. Denies any chest pain or shortness of breath. Has taken Tylenol for her pain. Rates her pain currently as 6/10. On exam patient has clear bilateral TMs, clear nasal drainage, mild inflammation of the anterior turbinates, oral pharynx mildly red, no cervical lymphadenopathy, lung sounds are clear, heart rates regular rate and rhythm. Strep COVID, and influenza test were ordered. Labs: Strep, COVID, and influenza test was performed and was negative in the clinic today. We will send strep for culture. Plan: I suspect patient has URI/pharyngitis. Supportive measures were discussed with the patient and they voiced understanding discharge instructions and agrees to treatment plan. Return precautions reviewed Differential Diagnosis Differential diagnosis: Likely upper respiratory infection, otitis media, sinusitis, viral infection, bronchitis, influenza, pharyngitis and other (COVID) Discharge Plan Discharge Clinical Impression: URI (upper respiratory infection) Qualifiers: URI type: unspecified URI Qualified Code(s): J06.9 - Acute upper respiratory infection, unspecified Pharyngitis Qualifiers: Pharyngitis/tonsillitis etiology: unspecified etiology Qualified Code(s): J02.9 - Acute pharyngitis, unspecified Patient Disposition: Home Condition: Stable Instructions: Antibiotic Form, Pharyngitis (ED), Cold Symptoms (ED) Additional Instructions: Increase fluids and stay well hydrated May take Tylenol or motrin as directed on bottle for pain/fever May use Flonase 1 spray in each nare daily May take OTC antihistamines such as Zyrtec or Claritin daily as directed on bottle May apply Vicks vapor rub to chest to open sinuses Sinus rinses for congestion Cepacol spray, cough drops, throat lozenges, warm tea with honey/lemon, gargle salt water to soothe throat BRAT diet for diarrhea Clear liquids x 24 hours then advance as tolerated for nausea/vomiting Go to the ED if you develop a worsening in your condition- high fever not controlled by Tylenol or Motrin, dehydration, weakness, lethargy, shortness of breath, or chest pain. Follow up with your PCP in 3-5 days if symptoms persist. Patient Language: Emirati Prescriptions: No Action propranolol 20 mg tablet fluoxetine 20 mg capsule propranolol 10 mg tablet 10 mg PO Q12H clonazepam 0.5 mg tablet 0.25 mg PO QHS PRN (Reason: Anxiety) Rx Instructions: administer 30 minutes before bedtime lisdexamfetamine [Vyvanse] 50 mg capsule 50 mg PO DAILY Follow-up/Referrals: Smith,Breann Galeano APN [Primary Care Provider, Unknown] Stand Alone Forms: Work/School Release IP Time of Disposition: 17:50 Quality NIHSS Nursing Documentation ED NIHSS nursing documentation: reviewed/agree
[2025-06-01 17:34] VITALS: BP 126/76; PULSE 72; RESP 20; TEMP 36.6; O2SAT 100
[2025-06-01 17:52] LABS: EDSTREPNEGPOS1 Negative (Negative)
[2025-06-01 17:53] LABS: EDCOVIDSCREEN Negative (Negative); EDINFLUASCREEN Negative (Negative); EDINFLUBSCREEN Negative (Negative)
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
--- OUTSIDE RECORDS SUMMARY | 2025-06-01 20:24 | XMS_ITS | Clinical Summary ---
Author Organization [facility] Address [address] [place] [address] Care Team Providers Care Motor And Generator Brush Cutter Name Role Phone Tegan Pinto MD Primary Care Provider Un available Source Comments [facility],non-owned Affiliates and Associated Physician Practices is amultiple site organization consisting of ambulatory clinics and hospital sitesin [place], [place], [place] and [place]. This disclosure is being madepursuant to the Care Everywhere program and may not contain all information available regarding this patient. 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 Gender Identity Not on file Sexual Orientation Not on file Last Filed Vital Signs Vital Sign Reading Time Taken Comments Blood Pressure 120/57 08/09/2020 10:14 AM JOB PRESS FEEDER Pulse 86 08/09/2020 10:14 AM JOB PRESS FEEDER Temperature 36.8 C (98.2 F) 08/09/2020 10:14 AM JOB PRESS FEEDER Respiratory Rate 18 08/09/2020 10:14 AM JOB PRESS FEEDER Oxygen Saturation 99% 08/09/2020 10:14 AM JOB PRESS FEEDER Inhaled Oxygen Concentration - - Weight 72.6 kg (160 lb) 08/09/2020 10:14 AM JOB PRESS FEEDER Height 165.1 cm (5' 5) 08/09/2020 10:14 AM JOB PRESS FEEDER Body Mass Index 26.63 08/09/2020 10:14 AM JOB PRESS FEEDER Plan of Treatment Health Maintenance Due Date Last Done Comments HEPATITIS B VACCINE (1 of 3 - 19+ 3-dose series) 12/12/2010 HPV VACCINE (1 - 3-dose SCDM series) 12/12/2018 DTAP/TDAP/TD VACCINES (3 - Td or Tdap) 07/13/2023 07/13/2013, 05/31/2010 DEPRESSION SCREENING 08/11/2024 COVID-19 VACCINE ( season) 2025 INFLUENZA VACCINE (#1) 2025 05/24/2011, 2009 ZOSTER VACCINE (1 of 2) 12/12/2041 PNEUMOCOCCAL [...] PM CDT Narrative Resulting Agency Comment [facility] [place] [address] [facility] [id number] Enid Silva DESULPHURIZER OPERATOR-ROTATING FIELD ASSEMBLER LAB - CHEMISTRY ORDERABLE S Final Result Performing Organization Address City/State/[facility] Co de Phone Number [facility] ACCOUNT BILL [address] [place] [address] * HEPATITIS SCREEN ACUTE (04/21/2015 3:12 PM [...] a more specific supplemental or PCR testing. [facility] offers HCV Ab w/Reflex to Verification test #[id number]. Blood specimen (specimen) BLOOD SPECIMEN / Unknown 04/21/2015 3:12 PM CDT 04/21/2015 5:16 PM CDT Narrative Resulting Agency Comment [facility] [place] [address] [facility] [id number] Enid Silva DESULPHURIZER OPERATOR-ROTATING FIELD ASSEMBLER LAB - CHEMISTRY ORDERABLE S Final Result [facility] ACCOUNT BILL [address] [place] [address] from Last 3 Months or Most Recently Relevant to Health Maintenance [place] [id number] [facility] Advance Directives * Full Code (Latest Code Status on File) Date Activated Date Inactivated Comments 10/01/2013 6:44 AM 10/01/2013 5:22 PM * FULL RESUSCITATION Date Activated Date Inactivated Comments 10/16/2011 11:20 AM 10/18/2011 10:28 PM * Full Code Date Activated Date Inactivated Comments 05/28/2010 6:22 PM 06/02/2010 12:54 AM Care Teams Motor And Generator Brush Cutter Relationship Specialty Start Date End Date Tegan Pinto MD PCP - General 06/19/12
--- OUTSIDE RECORDS SUMMARY | 2025-06-01 20:24 | XMS_ITS | Encounter Summary ---
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 Answer Date of Assessment Author No 06/24/2016 7:38 AM ROTARY CUTTER OPERATOR Letha Medina RN * Is person blind [...] Under Investigation 08/09/2020 08/09/2020 08/10/2020 12:23 AM ROTARY CUTTER OPERATOR COVID-19 Confirmed 08/09/2020 08/09/2020 1 4:35 AM ROTARY CUTTER OPERATOR documented as of this encounter Care Teams Machinist Outside Relationship Specialty Start Date End Date Tegan Pinto MD PCP - General 06/19/12 documented as of this encounter
--- OUTSIDE RECORDS SUMMARY | 2025-06-01 20:24 | XMS_ITS | Clinical Summary ---
Author Organization [facility] Address [address] [facility] [address] [place] [address] Phone Care Team Providers Care Cashier Office Name Role Phone Unavailable Primary Care Provider [...] 19+ 3-dose series) 12/12/2010 HPV/Cotest (21-29) 12/12/2012 HPV VACCINES (1 - 3-dose SCDM series) 12/12/2018 CERVICAL CANCER SCREENING 12/12/2021 HPV/Cotest (30-65) 12/12/2021 PAP SMEAR 12/12/2021 DTAP/TDAP/TD VACCINES (3 - Td or Tdap) 07/13/2023, 05/31/2010 INFLUENZA VACCINE (#1) 2025 05/24/2011, 2009 Insurance [facility] MEDICAID
--- OUTSIDE RECORDS SUMMARY | 2025-06-01 20:24 | XMS_ITS | Encounter Summary ---
Author Organization [facility] Address [address] [place] [address] Care Team Providers Care Nut Blanker Operator Name Role Phone Nopcp, Patient Primary Care Provider Tegan Yang MD Primary Care Provider Un available Encounter Details Date Type Department Care Team (Late st Contact Info) Description 03/04/2011 SS Outpatient Visit EXTERNAL NON-[facility] DEPT Awilda Shahid, [address] [facility] [address] [place], [place] [id number] Social History Tobacco Use Types Packs/Day Years Used Date Smoking Tobacco: Former Alcohol Use Standard Drinks/Week Comments No 0 (1 standard drink = 0.6 oz pur e alcohol) Comments Yes Sex and Gender Information Value Date Recorded Sex Assigned at Not on file 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 Gender Identity Not on file Sexual Orientation Not on file documented as of this encounter Plan of Treatment Not on file documented as of this encounter Visit Diagnoses Not on filedocumented in this encounter Additional Health Concerns Infection Onset Date Last Indicated Resolved Time COVID-19 Under Investigation 08/09/2020 08/09/2020 08/10/2020 12:23 AM LOCK INSTALLER COVID-19 Confirmed 08/09/2020 08/09/2020 1 4:35 AM LOCK INSTALLER documented as of this encounter Care Teams Nut Blanker Operator Relationship Specialty Start Date End Date Nopcp, Patient PCP - General 11/30/09 06/18/12 Tegan Pinto MD PCP - General 06/19/12 documented as of this encounter
== END 2025-06-01 17:59 | disposition home or self-care (01) ==
PROVIDERS: Emergency Provider Nurse Practitioner Family; PCP Nurse Practitioner Family
DX: J06.9 Acute upper respiratory infection, unspecified (principal); J02.9 Acute pharyngitis, unspecified; Z20.822 Contact with and (suspected) exposure to COVID-19; Z87.891 Personal history of nicotine dependence
CPT/HCPCS: 87081; 87426; 87804; 87880; 99213; G0463